=== PATIENT | female | born 1980 | race Hispanic/Latino ===

== ENCOUNTER 2018-06-14 11:12 | Inpatient (IN) | payer SELFPAY ==
[~2018-06-14] VITALS: Ht 165.1 cm; Wt 70.8 kg
[~2018-06-14 11:12] MED LIST: CHOLESTID PO; CYMBALTA30 MG PO; DICYCLOMINE HCL10 MG PO; FLAGYL250 MG PO; KLONOPIN1 MG PO; LEVSIN0.125 MG; MOBIC15 MG PO; PANTOPRAZOLE SO40 MG PO; PRILOSEC40 MG PO; PROMETHAZINE HC25 M1 PO; REGLAN; SINGULAIR10 MG PO; TYLENOL WITH C1 EACH PO; XANAX2 MG; ZOFRAN ODT4 MG PO
[2018-06-14] MEDS ORDERED: SODIUM CHLORIDE 0.9% 1000ML 1,000 ML IV STA ×2 (11:23→15:20)
[2018-06-14] MEDS ORDERED: METOCLOPRAMIDE HCL 10 MG/2ML VIAL IV ONE ×2 (11:30→18:00)
[2018-06-14] MEDS ORDERED: ASPIRIN 81 MG CHEW TAB PO ONE (11:30)
[2018-06-14 11:40] LABS: BILIRUBIN,URINE NEGATIVE (NEGATIVE); CLARITY,URINE SL CLOUDY (CLEAR); COLOR,URINE YELLOW (YELLOW); KETONES,URINE 3+ (NEGATIVE); LEUKOCYTE ESTERASE ,URINE NEGATIVE (NEGATIVE); NITRITE,URINE NEGATIVE (NEGATIVE); PROTEIN,URINE DIPSTICK 1+ (NEGATIVE); URINE UROBILINOGEN 0.2 mg/dL (0.2 - 1)
[2018-06-14] MEDS ORDERED: DIATRIZOATE MEGL/DIATRIZOA SOD 30 ML BTL PO ONE ×2 (11:48→12:05)
[2018-06-14 11:51] LABS: EPITHELIAL CELLS,URINE FEW /LPF; MUCUS,URINE RARE (RARE)
[2018-06-14 13:40] LABS: BASOPHILS # (AUTO) 0.1 (0.0-0.1); BASOPHILS % 0.3 % (0.0-1.0); EOSINOPHILS % 0.1 % (0.0-6.0); HEMATOCRIT 39.1 % (34.2-44.1); HEMOGLOBIN 12.6 g/dL (12.0-16.0); LYMPHOCYTES # (AUTO) 1.2 (1.0-3.2); LYMPHOCYTES % 7.7 % (18.0-39.1); MEAN CORPUSCULAR HEMOGLOBIN 23.7 pg (28-32); MEAN CORPUSCULAR HGB CONC 32.2 g/dL (31-35); MEAN CORPUSCULAR VOLUME 73.6 fL (81-99); MONOCYTES # (AUTO) 0.8 (0.2-0.8); MONOCYTES % 5.2 % (4.4-11.3); NEUTROPHILS % 86.4 % (38.7-80.0); PLATELET COUNT 574 x10e3/uL (140-360); RED BLOOD COUNT 5.31 x10e6/uL (3.6-5.1); RED CELL DISTRIBUTION WIDTH 20.2 % (11.7-14.4)
[2018-06-14 13:58] LABS: ALANINE AMINOTRANSFERASE 37 IU/L (0-55); ALBUMIN 4.3 g/dL (3.5-5.0); ALBUMIN/GLOBULIN RATIO 0.9 (0.8-2.0); ALKALINE PHOSPHATASE 120 IU/L (40-150); AMYLASE 58 U/L (25-125); ANION GAP 22.9 mmol/L (8-16); BLOOD UREA NITROGEN 16 mg/dL (7-26); BUN/CREATININE RATIO 20 (6-25); CALCIUM 11.1 mg/dL (8.4-10.2); CARBON DIOXIDE 20 mmol/L (22-29); CHLORIDE 105 mmol/L (98-107); CREATINE KINASE 59 IU/L (29-168); CREATININE, SERUM 0.81 mg/dL (0.57-1.11); EST GLOMERULAR FILTRATION RATE > 60 ML/MIN (60-); GLUCOSE 130 mg/dL (74-118); LIPASE 6 U/L (8-78); POTASSIUM 3.9 mmol/L (3.5-5.1); SODIUM 144 mmol/L (136-145)
[2018-06-14] MEDS: PIPER-TAZ 3.375 GM 50 ML IV SCH ×2 (14:54→21:49)
[2018-06-14] MEDS ORDERED: MORPHINE SULFATE INJ 4 MG/ML INJ IV STA (14:55)
[2018-06-14] MEDS ORDERED: ONDANSETRON HCL INJ 2 MG/ML VIAL IV STA (15:00)
[2018-06-14] MEDS ORDERED: HYDROMORPHONE 1MG/1ML INJ IV STA (15:00)
--- NOTE | 2018-06-14 16:17 | Diagnostic Imaging Report ---
PROCEDURE: CT ABDOMEN AND PELVIS WITH CONTRAST TECHNIQUE: The abdomen and pelvis were scanned utilizing a multidetector helical scanner from the diaphragm to the lesser trochanter after the IV administration of 100 cc of Isovue 370 and the oral administration of dilute Gastrografin. Coronal and sagittal multiplanar reformations were obtained. COMPARISON: [facility], CT, CT ABDOMEN/PELVIS W, 04/19/2016, 23:54. INDICATIONS: BLACK STOOL VOMITING FINDINGS: LOWER THORAX: Unremarkable. HEPATOBILIARY: No focal hepatic lesions. No intrahepatic biliary ductal dilatation. Mild dilation of the common bile duct enlargement which measures 7 mm At the jerry hepatis. No radiopaque intraluminal filling defects. Cholecystectomy clips. SPLEEN: No splenomegaly. PANCREAS: No focal masses or ductal dilatation. ADRENALS: No adrenal nodules. KIDNEYS/URETERS: No hydronephrosis, stones, or solid mass lesions. PELVIC ORGANS/BLADDER: Bladder and uterus are unremarkable. No adnexal masses. PERITONEUM / RETROPERITONEUM: No free air or fluid. LYMPH NODES: No lymphadenopathy. VESSELS: Celiac trunk, superior and inferior mesenteric, and bilateral renal arteries are patent. Portal, superior mesenteric, and splenic veins are patent. GI TRACT: No bowel dilation or evidence of obstruction. No pericolonic inflammatory changes. No intraluminal masses are noted. Stomach is unremarkable. BONES AND SOFT TISSUES: No aggressive lytic lesions. Soft tissues are unremarkable.. IMPRESSION: 1. No acute abdominopelvic abnormalities. No bowel dilation or evidence of obstruction. No focal intraluminal lesions or wall thickening. David Patton M.D. Dictated by: David Patton M.D. on 06/14/2018 at 16:21 Electronically approved by: David Patton M.D. on 06/14/2018 at 16:21
--- NOTE | 2018-06-14 18:09 | Diagnostic Imaging Report ---
PROCEDURE: Frontal and lateral views of the chest. COMPARISON: None. INDICATIONS: PRE-ADMISSION CHEST X-RAY, ELEVATED WHITE BLOOD CELL COUNT FINDINGS: Lines/tubes: None. Lungs: The lungs are well inflated and clear. There is no evidence of pneumonia or pulmonary edema. Pleura: There is no pleural effusion or pneumothorax. Heart and mediastinum: The heart and the mediastinum are normal. Bones: No acute bony abnormality. IMPRESSION: 1. No acute cardiopulmonary abnormalities. David Patton M.D. Dictated by: David Patton M.D. on 06/14/2018 at 18:15 Electronically approved by: David Patton M.D. on 06/14/2018 at 18:15
[2018-06-14] MEDS: SODIUM CHLORIDE 0.9% 1000ML 1,000 ML IV SCH (19:16)
[2018-06-14] MEDS: PANTOPRAZOLE 40 MG 10ML VIAL IV SCH (19:16)
[2018-06-14 19:39] VITALS: BP 121/68
[2018-06-14 20:00] VITALS: BP 121/73
[2018-06-14] MEDS: HYDROMORPHONE 1MG/1ML INJ IV PRN (20:05)
[2018-06-14] MEDS ORDERED: ACETAMINOPHEN 325 MG TAB PO PRN (20:15)
[2018-06-14] MEDS ORDERED: HYDRALAZINE HCL 20 MG/ML VIAL IV PRN (20:15)
[2018-06-14] MEDS ORDERED: CITALOPRAM HBR20 MG PO (23:24)
[2018-06-14] MEDS ORDERED: SEROQUEL25 MG PO (23:24)
[2018-06-15] VITALS: BP 100/56
[2018-06-15] MEDS ORDERED: IOPAMIDOL 370 MG/ML 200 ML INFUS..BTL INJ ONE (00:39)
[2018-06-15] MEDS ORDERED: SODIUM CHLORIDE 0.9% 50ML 50 ML ONE (00:39)
[2018-06-15] MEDS: SODIUM CHLORIDE 0.9% 1000ML 1,000 ML IV SCH ×2 (02:40→12:31)
[2018-06-15] MEDS: ONDANSETRON HCL INJ 2 MG/ML VIAL IV PRN ×3 (02:57→17:04)
[2018-06-15] MEDS: HYDROMORPHONE 1MG/1ML INJ IV PRN ×4 (02:58→22:00)
[2018-06-15 04:00] VITALS: BP 106/58
[2018-06-15] MEDS: PIPER-TAZ 3.375 GM 50 ML IV SCH ×3 (05:33→21:22)
[2018-06-15 05:39] LABS: BASOPHILS % 0.3 % (0.0-1.0); EOSINOPHILS # (AUTO) 0.1 (0.0-0.4); EOSINOPHILS % 1.2 % (0.0-6.0); LYMPHOCYTES # (AUTO) 2.2 (1.0-3.2); LYMPHOCYTES % 23.5 % (18.0-39.1); MEAN CORPUSCULAR HEMOGLOBIN 23.6 pg (28-32); MEAN CORPUSCULAR VOLUME 76.1 fL (81-99); MONOCYTES % 11.4 % (4.4-11.3); NEUTROPHILS # (AUTO) 5.8 (2.1-6.9); NEUTROPHILS % 63.4 % (38.7-80.0); PLATELET COUNT 437 x10e3/uL (140-360); RED BLOOD COUNT 3.81 x10e6/uL (3.6-5.1); RED CELL DISTRIBUTION WIDTH 19.4 % (11.7-14.4)
[2018-06-15 06:00] LABS: B-TYPE NATRIURETIC PEPTIDE2 101.8 pg/mL (0-100)
[2018-06-15 06:14] LABS: ALANINE AMINOTRANSFERASE 22 IU/L (0-55); ALBUMIN 2.8 g/dL (3.5-5.0); ALKALINE PHOSPHATASE 77 IU/L (40-150); ANION GAP 12.7 mmol/L (8-16); BILIRUBIN,DIRECT 0.2 mg/dL (0.0-0.5); BLOOD UREA NITROGEN 7 mg/dL (7-26); BUN/CREATININE RATIO 11 (6-25); CALCIUM 8.6 mg/dL (8.4-10.2); CARBON DIOXIDE 22 mmol/L (22-29); CHLORIDE 107 mmol/L (98-107); CHOL/HDL RATIO 2.9 (3.0-3.6); CHOLESTEROL 244 MD/DL (0-199); CREATININE, SERUM 0.63 mg/dL (0.57-1.11); EST GLOMERULAR FILTRATION RATE > 60 ML/MIN (60-); GLUCOSE 99 mg/dL (74-118); HDL CHOLESTEROL 84 MG/DL (40-60); LDL CHOLESTEROL 148 MG/DL (60-130); MAGNESIUM 1.5 MG/DL (1.3-2.1); POTASSIUM 3.7 mmol/L (3.5-5.1); SODIUM 138 mmol/L (136-145); TRIGLYCERIDES 62 MG/DL (0-149)
[2018-06-15 06:18] LABS: THYROID STIMULATING HORMONE 0.587 uIU/mL (0.350-4.940)
[2018-06-15] MEDS: PANTOPRAZOLE 40 MG 10ML VIAL IV SCH (07:59)
[2018-06-15 08:00] VITALS: BP 112/63
[2018-06-15 12:13] VITALS: BP 116/69
[2018-06-15 15:57] VITALS: BP 112/59
[2018-06-15] MEDS: CLONAZEPAM 1 MG TAB PO SCH (16:39)
[2018-06-15 20:00] VITALS: BP 126/75
[2018-06-15] MEDS: ATORVASTATIN 20 MG TAB PO SCH (21:00)
[2018-06-15] MEDS: QUETIAPINE FUMARATE 100 MG TAB PO SCH (23:13)
[2018-06-16] VITALS: BP 111/64
[2018-06-16] MEDS ORDERED: PANTOPRAZOLE 40 MG 10ML VIAL IV STA (01:53)
[2018-06-16] MEDS ORDERED: PANTOPRAZOLE 40 MG 10ML VIAL IV SCH (02:00)
[2018-06-16] MEDS: HYDROMORPHONE 1MG/1ML INJ IV PRN ×4 (02:26→23:59)
[2018-06-16 03:11] LABS: BASOPHILS % 0.7 % (0.0-1.0); EOSINOPHILS # (AUTO) 0.1 (0.0-0.4); EOSINOPHILS % 2.1 % (0.0-6.0); HEMATOCRIT 28.8 % (34.2-44.1); HEMOGLOBIN 9.1 g/dL (12.0-16.0); LYMPHOCYTES # (AUTO) 2.4 (1.0-3.2); LYMPHOCYTES % 42.2 % (18.0-39.1); MEAN CORPUSCULAR HEMOGLOBIN 23.6 pg (28-32); MEAN CORPUSCULAR HGB CONC 31.6 g/dL (31-35); MEAN CORPUSCULAR VOLUME 74.6 fL (81-99); MONOCYTES # (AUTO) 0.6 (0.2-0.8); MONOCYTES % 10.1 % (4.4-11.3); NEUTROPHILS # (AUTO) 2.5 (2.1-6.9); NEUTROPHILS % 44.7 % (38.7-80.0); PLATELET COUNT 420 x10e3/uL (140-360); RED BLOOD COUNT 3.86 x10e6/uL (3.6-5.1); RED CELL DISTRIBUTION WIDTH 19.4 % (11.7-14.4)
[2018-06-16 03:28] LABS: ANION GAP 11.3 mmol/L (8-16); BLOOD UREA NITROGEN < 5 mg/dL (7-26); BUN/CREATININE RATIO 8 (6-25); CALCIUM 8.8 mg/dL (8.4-10.2); CARBON DIOXIDE 24 mmol/L (22-29); CHLORIDE 108 mmol/L (98-107); CREATININE, SERUM 0.66 mg/dL (0.57-1.11); EST GLOMERULAR FILTRATION RATE > 60 ML/MIN (60-); GLUCOSE 93 mg/dL (74-118); MAGNESIUM 1.7 MG/DL (1.3-2.1); POTASSIUM 3.3 mmol/L (3.5-5.1); SODIUM 140 mmol/L (136-145)
[2018-06-16 03:51] LABS: FERRITIN 7.41 ng/mL (4.63-204.00)
[2018-06-16 04:00] VITALS: BP 108/67
[2018-06-16 04:04] LABS: FOLATE 16.1 ng/mL (7.0-15.4)
[2018-06-16] MEDS ORDERED: CITRATE OF MAGNESIA 300ML BOTTLE PO ONE ×2 (05:00→06:00)
[2018-06-16] MEDS: PIPER-TAZ 3.375 GM 50 ML IV SCH ×3 (05:28→20:18)
[2018-06-16] MEDS: SODIUM CHLORIDE 0.9% 1000ML 1,000 ML IV SCH ×3 (05:32→19:24)
[2018-06-16] MEDS: CITALOPRAM HYDROBROMIDE 20 MG TAB PO SCH (07:52)
[2018-06-16] MEDS: PANTOPRAZOLE 40 MG 10ML VIAL IV SCH ×2 (07:52→20:18)
[2018-06-16] MEDS: DULOXETINE HCL 30 MG DELAYED RELEASE PO SCH (07:53)
[2018-06-16 08:04] VITALS: BP 115/63
[2018-06-16] MEDS: CLONAZEPAM 1 MG TAB PO SCH ×2 (09:00→19:24)
[2018-06-16] MEDS ORDERED: FERROUS SULFAT325 M1 PO (11:04)
[2018-06-16] MEDS ORDERED: ASCORBIC ACID500 MG PO (11:04)
[2018-06-16] MEDS ORDERED: CEFTIN PO (11:04)
[2018-06-16] MEDS ORDERED: REGLAN10 MG PO (11:19)
[2018-06-16] MEDS ORDERED: METOCLOPRAMIDE HCL 10 MG TAB PO SCH (11:30)
[2018-06-16] MEDS ORDERED: LIPITOR20 MG PO (11:39)
[2018-06-16] MEDS: METOCLOPRAMIDE HCL 10 MG/2ML VIAL IV SCH ×3 (11:48→20:18)
[2018-06-16] MEDS ORDERED: POTASSIUM CHLORIDE 20 MEQ TAB CR PO ONE (12:00)
[2018-06-16] MEDS ORDERED: POTASSIUM CHLORIDE 20MEQ/100ML 100 ML IV ONE ×2 (12:00→17:00)
[2018-06-16 12:31] VITALS: BP 123/79
[2018-06-16 15:49] VITALS: BP 126/80
[2018-06-16] MEDS ORDERED: PROPOFOL IV EMULSION 10 MG/ML 50 ML VIAL ONE (17:50)
[2018-06-16] MEDS ORDERED: HYOSCYAMINE SULFATE 0.5 MG/ML AMP ONE (17:50)
[2018-06-16] MEDS ORDERED: MIDAZOLAM HCL 2 MG/2 ML VIAL ONE (17:55)
[2018-06-16] MEDS ORDERED: FENTANYL CITRATE/PF 100MCG/2 ML INJ ONE (17:55)
[2018-06-16] MEDS: ASCORBIC ACID 500 MG TAB PO SCH (19:24)
[2018-06-16] MEDS: FERROUS SULFATE 325 MG TAB PO SCH (19:24)
[2018-06-16 20:00] VITALS: BP 126/75
[2018-06-16] MEDS: ATORVASTATIN 20 MG TAB PO SCH ×2 (20:18→20:27)
[2018-06-16] MEDS: QUETIAPINE FUMARATE 100 MG TAB PO SCH (20:18)
[2018-06-16] MEDS: ONDANSETRON HCL INJ 2 MG/ML VIAL IV PRN (23:59)
--- NOTE | 2018-06-17 02:07 | Operative Report ---
DATE OF PROCEDURE: June 16, 2018 REFERRING PHYSICIAN: Dr. Matt Pratt. PROCEDURE PERFORMED: Colonoscopy and polypectomy note. INDICATIONS FOR COLONOSCOPY: Rectal bleeding, loose stools. MEDICATION: Patient was done under MAC. Please see anesthesiologist's note. PROCEDURE: With patient in the left lateral decubitus position, the flexible fiberoptic Olympus colonoscope was inserted into the rectum with ease and advanced all the way to the cecum. The mucosa overlying the cecum appeared to be within normal limits. The ileocecal valve was intubated and the scope was advanced into the terminal ileum. Biopsies were obtained. The scope was then withdrawn back into the colon. It was then withdrawn slowly. Mucosa overlying the ascending, transverse, and the descending grossly appeared to be within normal limits. A large pedunculated polyp was removed per snare electrocautery from the sigmoid colon. The rectum grossly appeared to be within normal limits. The scope was then retroflexed into the distal rectum and the area around the dentate line appeared to be within normal limits. The scope was then straightened out. It was subsequently withdrawn. Patient tolerated the procedure well. IMPRESSION: Large pedunculated polyp, sigmoid colon, removed per snare electrocautery. PLAN 1. Follow up histology. 2. Follow up stool studies. 3. Initiate GI soft diet. 4. Timing of followup colonoscopy pending pathology report. Job#: [id number] CF cc:MATT PRATT MD
--- NOTE | 2018-06-17 03:05 | Discharge Summary ---
ADMISSION DIAGNOSES 1. Abdominal pain with nausea and vomiting. 2. Gastrointestinal bleed. 3. Anxiety, depression. 4. Gastroparesis. 5. Gastroesophageal reflux disease. 6. Hypercholesterolemia. DISCHARGE DIAGNOSES 1. Abdominal pain with nausea and vomiting. 2. Gastrointestinal bleed. 3. Anxiety, depression. 4. Gastroparesis. 5. Gastroesophageal reflux disease. 6. Hypercholesterolemia. HISTORY: Patient has a history of gastroparesis, IBS, GERD, anxiety, depression, surgical history of tonsillectomy, cholecystectomy, and a D and C. HOSPITAL COURSE: A 37-year-old female, who complains of nausea, vomiting, and bloody diarrhea that began yesterday. The diarrhea has now resolved. She denies fever and claimed that she had similar episodes in the past, when she was diagnosed with IBS and gastroparesis. Patient was started on Zosyn. CT of the abdomen was done in the ER that showed no acute abdominopelvic abnormality. Chest x-ray was done, which was negative. Urine culture was negative. Blood culture negative. Vital signs stable. Patient afebrile. Per GI, patient will have a colonoscopy today and then, can discharge home afterwards. She will followup outpatient for a gastric emptying study. Patient understands discharge instructions and followup and agrees with plan. Vital signs stable. Patient afebrile. Patient is excited and ready to go home. Dictated By: Lainey Moreland NP MATT ARIAS MD Job#: [id number] CQ
[2018-06-17 04:00] VITALS: BP 126/72
[2018-06-17] MEDS: SODIUM CHLORIDE 0.9% 1000ML 1,000 ML IV SCH (04:56)
[2018-06-17] MEDS: PIPER-TAZ 3.375 GM 50 ML IV SCH (05:02)
[2018-06-17] MEDS: HYDROMORPHONE 1MG/1ML INJ IV PRN (05:02)
[2018-06-17] MEDS: ONDANSETRON HCL INJ 2 MG/ML VIAL IV PRN (05:02)
[2018-06-17 05:26] LABS: BASOPHILS % 0.6 % (0.0-1.0); EOSINOPHILS # (AUTO) 0.2 (0.0-0.4); EOSINOPHILS % 3.4 % (0.0-6.0); HEMATOCRIT 29.6 % (34.2-44.1); HEMOGLOBIN 9.2 g/dL (12.0-16.0); LYMPHOCYTES # (AUTO) 2.5 (1.0-3.2); LYMPHOCYTES % 38.3 % (18.0-39.1); MEAN CORPUSCULAR HEMOGLOBIN 23.7 pg (28-32); MEAN CORPUSCULAR HGB CONC 31.1 g/dL (31-35); MEAN CORPUSCULAR VOLUME 76.3 fL (81-99); MONOCYTES # (AUTO) 0.7 (0.2-0.8); MONOCYTES % 10.1 % (4.4-11.3); NEUTROPHILS # (AUTO) 3.1 (2.1-6.9); NEUTROPHILS % 47.3 % (38.7-80.0); PLATELET COUNT 405 x10e3/uL (140-360); RED BLOOD COUNT 3.88 x10e6/uL (3.6-5.1); RED CELL DISTRIBUTION WIDTH 19.6 % (11.7-14.4)
[2018-06-17 05:57] LABS: ANION GAP 12.6 mmol/L (8-16); BLOOD UREA NITROGEN 6 mg/dL (7-26); BUN/CREATININE RATIO 9 (6-25); CALCIUM 8.6 mg/dL (8.4-10.2); CARBON DIOXIDE 22 mmol/L (22-29); CHLORIDE 110 mmol/L (98-107); CREATININE, SERUM 0.67 mg/dL (0.57-1.11); EST GLOMERULAR FILTRATION RATE > 60 ML/MIN (60-); GLUCOSE 101 mg/dL (74-118); MAGNESIUM 1.6 MG/DL (1.3-2.1); POTASSIUM 3.6 mmol/L (3.5-5.1); SODIUM 141 mmol/L (136-145)
[2018-06-17] MEDS: METOCLOPRAMIDE HCL 10 MG/2ML VIAL IV SCH (07:30)
[2018-06-17] MEDS ORDERED: TYLENOL # 31 EA PO (07:34)
[2018-06-17] MEDS: FERROUS SULFATE 325 MG TAB PO SCH (08:00)
[2018-06-17 08:11] VITALS: BP 127/76
[2018-06-17] MEDS: PANTOPRAZOLE 40 MG 10ML VIAL IV SCH (09:00)
[2018-06-17] MEDS: ASCORBIC ACID 500 MG TAB PO SCH (09:00)
[2018-06-17] MEDS: CLONAZEPAM 1 MG TAB PO SCH (09:00)
[2018-06-17] MEDS: DULOXETINE HCL 30 MG DELAYED RELEASE PO SCH (09:00)
[2018-06-17] MEDS: CITALOPRAM HYDROBROMIDE 20 MG TAB PO SCH (09:00)
--- NOTE | 2018-06-17 20:43 | Discharge Summary ---
ADMISSION DIAGNOSES 1. Abdominal pain with nausea and vomiting. 2. Gastrointestinal bleed. 3. Anxiety. 4. Depression. 5. Gastroparesis. 6. Gastroesophageal reflux disease. 7. Hypercholesterolemia. 8. Large colon polyp. DISCHARGE DIAGNOSES 1. Abdominal pain with nausea and vomiting. 2. Gastrointestinal bleed. 3. Anxiety. 4. Depression. 5. Gastroparesis. 6. Gastroesophageal reflux disease. 7. Hypercholesterolemia. 8. Large colon polyp. HISTORY: Patient has a history of gastroparesis, IBS, GERD, anxiety, depression. Surgical history of tonsillectomy, cholecystectomy, and D and C. HOSPITAL COURSE: A 37-year-old female complains of nausea, vomiting, and bloody diarrhea that began yesterday. The diarrhea has now resolved. She denies fever and claimed that she had similar episodes in the past, when she was diagnosed with IBS and gastroparesis. Patient was started on Zosyn. CT of the abdomen done in the ER showed no acute abdominopelvic abnormality. Chest x-ray was negative. Urine culture negative. Blood culture negative. Patient had an EGD that showed a large pedunculated polyp, which was removed per snare electrocautery. Stool culture was collected and is still pending. Per GI, patient can have an outpatient gastric emptying study. Patient understands discharge instructions and followup plans and agrees with plan. Vital signs stable. Patient afebrile. Patient was discharged home today and follow up with GI regarding stool studies and gastric emptying study. Dictated By: Lainey Moreland NP MATT ARIAS MD Job#: [id number] CQ
== END 2018-06-17 11:12 | disposition home or self-care (01) | DRG 379 ==
LOC: ER 11:12 → ERHOLD 16:59 → MED/SURG2 18:55
PROVIDERS: ADMIT Internal Medicine; ATTEND Internal Medicine
PROC: 0DBB8ZX Excision of Ileum, Via Natural or Artificial Opening Endoscopic, Diagnostic (ICD-10-PCS; 2018-06-16)
PROC: 0DBN8ZZ Excision of Sigmoid Colon, Via Natural or Artificial Opening Endoscopic (ICD-10-PCS; principal; 2018-06-16 17:11)
DX: K92.1 Melena (principal); K63.5 Polyp of colon; K58.9 Irritable bowel syndrome, unspecified; F41.8 Other specified anxiety disorders; K31.84 Gastroparesis; D64.9 Anemia, unspecified; K21.9 Gastro-esophageal reflux disease without esophagitis
CPT/HCPCS: 36415; 45385; 71046; 74177; 80048; 80053; 80061; 80076; 81001; 81025; 82150; 82550; 82553; 82607; 82728; 82746; 83036; 83540; 83605; 83690; 83735; 83880; 84439; 84443; 84466; 84484; 85025; 87040; 87045; 87086; 87177; 87328; 88305; 99284; J1170; J1980; J2250; J2405; J2543; J2765; J3480; J7030; Q9967

== ENCOUNTER 2018-06-20 15:28 | Observation (INO) | payer SELFPAY ==
[~2018-06-20] VITALS: Ht 165.1 cm; Wt 64.9 kg
[~2018-06-20 15:28] MED LIST changes: +ASCORBIC ACID500 MG PO; +CEFTIN PO; +CITALOPRAM HBR20 MG PO; +FERROUS SULFAT325 M1 PO; +LIPITOR20 MG PO; +REGLAN10 MG PO; +SEROQUEL25 MG PO; +TYLENOL # 31 EA PO
[2018-06-20] MEDS ORDERED: SODIUM CHLORIDE 0.9% 1000ML 1,000 ML IV ONE (15:45)
[2018-06-20 15:59] LABS: BASOPHILS % 0.2 % (0.0-1.0); EOSINOPHILS # (AUTO) 0.1 (0.0-0.4); EOSINOPHILS % 0.8 % (0.0-6.0); HEMATOCRIT 34.7 % (34.2-44.1); LYMPHOCYTES # (AUTO) 1.1 (1.0-3.2); MEAN CORPUSCULAR HEMOGLOBIN 23.8 pg (28-32); MEAN CORPUSCULAR HGB CONC 31.7 g/dL (31-35); MEAN CORPUSCULAR VOLUME 75.1 fL (81-99); MONOCYTES # (AUTO) 0.3 (0.2-0.8); MONOCYTES % 2.8 % (4.4-11.3); NEUTROPHILS # (AUTO) 10.7 (2.1-6.9); NEUTROPHILS % 86.9 % (38.7-80.0); PLATELET COUNT 474 x10e3/uL (140-360); RED BLOOD COUNT 4.62 x10e6/uL (3.6-5.1)
[2018-06-20 16:02] LABS: BILIRUBIN,URINE NEGATIVE (NEGATIVE); CLARITY,URINE CLEAR (CLEAR); COLOR,URINE YELLOW (YELLOW); KETONES,URINE NEGATIVE (NEGATIVE); LEUKOCYTE ESTERASE ,URINE NEGATIVE (NEGATIVE); NITRITE,URINE NEGATIVE (NEGATIVE); PROTEIN,URINE DIPSTICK NEGATIVE (NEGATIVE); URINE UROBILINOGEN 0.2 mg/dL (0.2 - 1)
[2018-06-20 16:11] LABS: BACTERIA,URINE FEW /HPF; EPITHELIAL CELLS,URINE MANY /LPF; MUCUS,URINE MODERATE (RARE)
[2018-06-20 16:17] LABS: ALANINE AMINOTRANSFERASE 25 IU/L (0-55); ALBUMIN 3.5 g/dL (3.5-5.0); ALBUMIN/GLOBULIN RATIO 0.9 (0.8-2.0); ALKALINE PHOSPHATASE 93 IU/L (40-150); ANION GAP 13.6 mmol/L (8-16); BLOOD UREA NITROGEN 9 mg/dL (7-26); BUN/CREATININE RATIO 13 (6-25); CALCIUM 9.4 mg/dL (8.4-10.2); CARBON DIOXIDE 24 mmol/L (22-29); CHLORIDE 108 mmol/L (98-107); CREATININE, SERUM 0.71 mg/dL (0.57-1.11); EST GLOMERULAR FILTRATION RATE > 60 ML/MIN (60-); GLUCOSE 113 mg/dL (74-118); POTASSIUM 3.6 mmol/L (3.5-5.1); SODIUM 142 mmol/L (136-145)
[2018-06-20] MEDS ORDERED: ONDANSETRON HCL INJ 2 MG/ML VIAL IV STA (16:26)
[2018-06-20] MEDS ORDERED: HYOSCYAMINE SULFATE 0.5 MG/ML AMP IV ONE (19:15)
[2018-06-20] MEDS ORDERED: PROMETHAZINE 12.5MG/ NACL 0.9% 12.5 MG/50 ML BAG IV ONE (19:15)
[2018-06-20] MEDS ORDERED: SODIUM CHLORIDE 0.9% 1000ML 1,000 ML IV SCH (19:30)
[2018-06-20] MEDS ORDERED: DICYCLOMINE HCL 20 MG/2 ML VIAL IM ONE (21:45)
[2018-06-20] MEDS: METOCLOPRAMIDE HCL 10 MG/2ML VIAL IV SCH (22:00)
--- NOTE | 2018-06-20 22:01 | Diagnostic Imaging Report ---
EXAM: ABDOMEN ACUTE SERIES W/PA CXR INDICATION: Vomiting COMPARISON: None available FINDINGS: LINES/TUBES: None LUNGS: No consolidations or edema. PLEURA: No effusions or pneumothorax. HEART AND MEDIASTINUM: Normal size and contour. BOWEL PATTERN: Non-obstructed bowel gas pattern. BONES AND SOFT TISSUES: No acute bone findings. No abnormal calcifications. Right upper quadrant cholecystectomy clips. IMPRESSION: No acute thoracic abnormality. No evidence for bowel obstruction. Signed by: Dr. Ninfa Sparks M.D. on 06/20/2018 9:57 PM
[2018-06-20] MEDS ORDERED: METOPROLOL TARTRATE INJ 1 MG/ML VIAL IV ONE (22:15)
[2018-06-20] MEDS ORDERED: ONDANSETRON HCL INJ 2 MG/ML VIAL IV PRN (22:30)
[2018-06-20] MEDS: SODIUM CHLORIDE 0.9% 1000ML 1,000 ML IV SCH (22:37)
[2018-06-20 23:45] VITALS: BP 174/100
[2018-06-21] VITALS (8 sets, daily range): BP systolic 99–144; BP diastolic 57–92
[2018-06-21] MEDS ORDERED: DIAZEPAM5 MG PO (00:05)
[2018-06-21] MEDS ORDERED: PANTOPRAZOLE 40 MG 10ML VIAL IV STA (00:19)
[2018-06-21] MEDS: PANTOPRAZOL 40MG/SOD CHL 0.9% 50 ML IV SCH ×5 (01:03→21:36)
[2018-06-21] MEDS: SODIUM CHLORIDE 0.9% 1000ML 1,000 ML IV SCH ×3 (06:17→22:17)
[2018-06-21] MEDS: METOCLOPRAMIDE HCL 10 MG/2ML VIAL IV SCH ×3 (06:41→18:50)
[2018-06-21] MEDS ORDERED: ACETAMINOPHEN 325 MG TAB PO PRN (09:30)
[2018-06-21] MEDS ORDERED: HYDRALAZINE HCL 20 MG/ML VIAL IV PRN (09:30)
[2018-06-21] MEDS: CLONAZEPAM 1 MG TAB PO SCH (16:56)
[2018-06-21] MEDS ORDERED: ATORVASTATIN 20 MG TAB PO SCH (21:00)
[2018-06-21] MEDS ORDERED: QUETIAPINE FUMARATE 100 MG TAB PO SCH (21:00)
[2018-06-21] MEDS ORDERED: QUETIAPINE FUMARATE 25 MG TAB PO SCH (21:00)
[2018-06-22 00:30] VITALS: BP 107/56
[2018-06-22] MEDS: METOCLOPRAMIDE HCL 10 MG/2ML VIAL IV SCH ×2 (01:12→06:38)
[2018-06-22] MEDS: PANTOPRAZOL 40MG/SOD CHL 0.9% 50 ML IV SCH ×2 (04:21→09:25)
[2018-06-22 05:00] VITALS: BP 95/54
[2018-06-22 05:58] LABS: BASOPHILS % 0.5 % (0.0-1.0); EOSINOPHILS # (AUTO) 0.2 (0.0-0.4); EOSINOPHILS % 3.2 % (0.0-6.0); HEMATOCRIT 29.4 % (34.2-44.1); HEMOGLOBIN 9.4 g/dL (12.0-16.0); LYMPHOCYTES # (AUTO) 3.3 (1.0-3.2); LYMPHOCYTES % 49.3 % (18.0-39.1); MEAN CORPUSCULAR HEMOGLOBIN 23.7 pg (28-32); MEAN CORPUSCULAR VOLUME 74.1 fL (81-99); MONOCYTES # (AUTO) 0.7 (0.2-0.8); NEUTROPHILS # (AUTO) 2.4 (2.1-6.9); NEUTROPHILS % 36.7 % (38.7-80.0); PLATELET COUNT 412 x10e3/uL (140-360); RED BLOOD COUNT 3.97 x10e6/uL (3.6-5.1); RED CELL DISTRIBUTION WIDTH 20.1 % (11.7-14.4)
[2018-06-22 06:36] LABS: ANION GAP 14.1 mmol/L (8-16); BLOOD UREA NITROGEN 8 mg/dL (7-26); BUN/CREATININE RATIO 12 (6-25); CARBON DIOXIDE 23 mmol/L (22-29); CHLORIDE 108 mmol/L (98-107); CREATININE, SERUM 0.69 mg/dL (0.57-1.11); EST GLOMERULAR FILTRATION RATE > 60 ML/MIN (60-); GLUCOSE 96 mg/dL (74-118); MAGNESIUM 1.6 MG/DL (1.3-2.1); POTASSIUM 3.1 mmol/L (3.5-5.1); SODIUM 142 mmol/L (136-145)
[2018-06-22] MEDS: SODIUM CHLORIDE 0.9% 1000ML 1,000 ML IV SCH (06:38)
[2018-06-22 08:23] VITALS: BP 114/62
[2018-06-22] MEDS: MONTELUKAST SODIUM 10 MG TAB PO SCH ×2 (09:00→09:15)
[2018-06-22] MEDS: DULOXETINE HCL 30 MG DELAYED RELEASE PO SCH ×2 (09:00→09:15)
[2018-06-22] MEDS: CLONAZEPAM 1 MG TAB PO SCH (09:15)
[2018-06-22] MEDS ORDERED: CITALOPRAM HBR20 MG PO (09:42)
[2018-06-22] MEDS ORDERED: PROPRANOLOL HCL10 MG PO (09:48)
[2018-06-22 10:00] VITALS: BP 114/62
[2018-06-22] MEDS ORDERED: PANTOPRAZOLE SO40 MG PO (10:04)
[2018-06-22] MEDS ORDERED: ATORVASTATIN CA10 MG PO (10:09)
[2018-06-22] MEDS ORDERED: POTASSIUM CHLORIDE 20 MEQ TAB CR PO NR (10:10)
[2018-06-22 11:42] VITALS: BP 107/59
--- NOTE | 2018-06-22 18:51 | Discharge Summary ---
ADMISSION DIAGNOSES 1. Cannabinoid hyperemesis. 2. Gastroparesis. 3. Anxiety/depression. 4. Hyperlipidemia. 5. Leukocytosis. DISCHARGE DIAGNOSES 1. Cannabinoid hyperemesis. 2. Gastroparesis. 3. Anxiety/depression. 4. Hyperlipidemia. 5. Leukocytosis. 6. Rule out urinary tract infection. HISTORY: The patient has a history of irritable bowel syndrome, GERD, anxiety, depression, hyperlipidemia, gastroparesis. HOSPITAL COURSE: A 37-year-old female discharged on 06/17/18. She was admitted at that point with nausea, vomiting and diarrhea. She had a colonoscopy, which showed a polyp. She was then sent home with Reglan and promethazine. She was tolerating diet at the time of discharge. On 06/19, she smoked weed and denies it being laced with anything, and on that night into the next morning she awoke up out of her sleep complaining of nausea and vomiting. She also complains of diarrhea and sweats. GI was consulted on admission. The patient started on a PPI drip, IV fluids, Reglan and Zofran. The patient continued on home medications for all other medical diagnoses. After getting the PPI drip for 2 days, the patient feels much better. She is tolerating p.o., no longer nauseated and no longer having diarrhea. The patient will discharge home and follow up with GI as needed. She is to have a gastric emptying study. Per her last admission, she was advised to stop smoking weed, and take her meds as prescribed. The patient is afebrile, vital signs stable. She understands discharge instructions and agrees to plan. Dictated by: Lainey Moreland NP MATT ARIAS MD Job#: [id number]
== END 2018-06-22 11:40 | disposition home or self-care (01) ==
LOC: ER 15:28 → ERHOLD 22:17 → IMCU 23:37
PROVIDERS: ADMIT Internal Medicine; ATTEND Internal Medicine
DX: F12.188 Cannabis abuse with other cannabis-induced disorder (principal); E86.0 Dehydration; K58.9 Irritable bowel syndrome, unspecified; K21.9 Gastro-esophageal reflux disease without esophagitis; F41.9 Anxiety disorder, unspecified; E78.5 Hyperlipidemia, unspecified; K31.84 Gastroparesis; F41.8 Other specified anxiety disorders
CPT/HCPCS: 36415 ×2; 74022; 80048; 80053; 81001; 83605; 83690; 83735; 84702; 85025 ×2; 99284; G0378 ×3; J0500; J1980; J2405; J2550; J2765 ×3; J7030 ×2

== ENCOUNTER 2018-11-14 21:10 | Observation (INO) | payer SELFPAY ==
[~2018-11-14] VITALS: Ht 165.1 cm; Wt 85.7 kg
[~2018-11-14 21:10] MED LIST changes: +ATORVASTATIN CA10 MG PO; +DIAZEPAM5 MG PO; +PROPRANOLOL HCL10 MG PO
--- OUTSIDE RECORDS SUMMARY | 2018-11-14 21:13 | XMS REPORT | Clinical Summary ---
Author Author MATHEW [facility] Address Unknown Phone Unavailable Care Team Providers Care Student Union Consultant Name Role Phone PCP Unavailable Allergies Comments Active Allergy Reactions Severity Noted Date Morphine Hives, Rash High 04/21/2016 Medications End Date Status Medication Sig Dispensed Refills Start Date Active colestipol (COLESTID) 5 Take 1 g by 0 gram granules mouth once. Active FLUoxetine (PROZAC) 10 MG Take 30 mg by 0 tablet mouth daily. Active ALPRAZolam (XANAX) 0.5 MG Take 0.5 mg 0 tablet by mouth daily. Active ALPRAZolam (XANAX) 1 MG Take 1 mg by 0 tablet mouth nightly. Active omeprazole (PRILOSEC) 40 Take 40 mg by 0 MG capsule mouth daily. Active montelukast (SINGULAIR) Take 10 mg by 0 10 mg tablet mouth nightly. Active Missing or Non-Formulary 0 Medication Active vitamin Take 1 tablet 0 w/eondpwq-udld-nmiatw by mouth ( PLUS) 27 mg daily. iron- 1 mg Tab Active promethazine (PHENERGAN) Take 25 mg by 0 25 MG tablet mouth every 6 (six) hours as needed for Nausea. Active ondansetron (ZOFRAN) 4 MG Take 4 mg by 0 tablet mouth 2 (two) times daily as needed for Nausea. Active etonogestrel-ethinyl Place 1 each 0 estradiol (NUVARING) vaginally 0.12-0.015 mg/24 hr every 28 days vaginal ring Insert vaginally and leave in place for 3 consecutive weeks, then remove for 1 week. . Active Problems Not on file Social History Date Tobacco Use Types Packs/Day Years Used Current Every Day Smoker Comments: decreased to half a pack / plan of quiting Alcohol Use Drinks/Week oz/Week Comments No Sex Assigned at Date Recorded Not on file Industry Job Start Date Occupation Not on file Not on file Not on file Travel End Travel History Travel Start No recent travel history available. Last Filed Vital Signs Not on file Plan of Treatment Not on file Results Not on fileafter 11/13/2017 Insurance Payer Benefit Subscriber ID Type Phone Address Plan / Group [employer] ADV xxxxxxxxxxxx [phone] [address] [place] [address] EXCHANGE
[2018-11-14] MEDS ORDERED: DICYCLOMINE HCL 20 MG/2 ML VIAL IM ONE (22:15)
[2018-11-14] MEDS ORDERED: SODIUM CHLORIDE 0.9% 1000ML 1,000 ML IV ONE (22:15)
[2018-11-14] MEDS ORDERED: ONDANSETRON HCL INJ 2 MG/ML VIAL IV STA (22:15)
[2018-11-14] MEDS ORDERED: PANTOPRAZOLE 40 MG 10ML VIAL IV STA (22:15)
[2018-11-14 22:40] LABS: BASOPHILS # (AUTO) 0.1 (0.0-0.1); BASOPHILS % 0.4 % (0.0-1.0); EOSINOPHILS % 0.1 % (0.0-6.0); HEMOGLOBIN 11.4 g/dL (12.0-16.0); LYMPHOCYTES # (AUTO) 1.4 (1.0-3.2); LYMPHOCYTES % 10.1 % (18.0-39.1); MEAN CORPUSCULAR HEMOGLOBIN 22.5 pg (28-32); MEAN CORPUSCULAR HGB CONC 31.7 g/dL (31-35); MONOCYTES # (AUTO) 0.7 (0.2-0.8); MONOCYTES % 4.6 % (4.4-11.3); NEUTROPHILS % 84.4 % (38.7-80.0); PLATELET COUNT 560 x10e3/uL (140-360); RED BLOOD COUNT 5.07 x10e6/uL (3.6-5.1); RED CELL DISTRIBUTION WIDTH 19.5 % (11.7-14.4)
[2018-11-14 22:46] LABS: CLARITY,URINE CLEAR (CLEAR); COLOR,URINE YELLOW (YELLOW); KETONES,URINE 3+ (NEGATIVE); LEUKOCYTE ESTERASE ,URINE NEGATIVE (NEGATIVE); NITRITE,URINE NEGATIVE (NEGATIVE); PROTEIN,URINE DIPSTICK 1+ (NEGATIVE)
[2018-11-14 22:47] LABS: AMPHETAMINES SCREEN,URINE NEGATIVE (NEGATIVE); BENZODIAZEPINES SCREEN,URINE POSITIVE (NEGATIVE); PHENCYCLIDINE SCREEN,URINE NEGATIVE (NEGATIVE)
[2018-11-14 22:48] LABS: PREGNANCY TEST, URINE NEGATIVE (NEGATIVE)
[2018-11-14 22:55] LABS: ALANINE AMINOTRANSFERASE 27 IU/L (0-55); ALBUMIN 3.9 g/dL (3.5-5.0); ALBUMIN/GLOBULIN RATIO 0.8 (0.8-2.0); ALKALINE PHOSPHATASE 124 IU/L (40-150); AMYLASE 79 U/L (25-125); ANION GAP 23.6 mmol/L (8-16); BLOOD UREA NITROGEN 12 mg/dL (7-26); BUN/CREATININE RATIO 14 (6-25); CALCIUM 10.1 mg/dL (8.4-10.2); CARBON DIOXIDE 13 mmol/L (22-29); CHLORIDE 104 mmol/L (98-107); CREATININE, SERUM 0.83 mg/dL (0.57-1.11); EST GLOMERULAR FILTRATION RATE > 60 ML/MIN (60-); GLUCOSE 141 mg/dL (74-118); LIPASE 6 U/L (8-78); POTASSIUM 3.6 mmol/L (3.5-5.1); SODIUM 137 mmol/L (136-145)
[2018-11-14 23:04] LABS: BILIRUBIN,URINE NEGATIVE (NEGATIVE); URINE UROBILINOGEN 0.2 mg/dL (0.2 - 1)
[2018-11-14 23:05] LABS: BACTERIA,URINE MODERATE /HPF; EPITHELIAL CELLS,URINE FEW /LPF; MUCUS,URINE MANY (RARE)
--- OUTSIDE RECORDS SUMMARY | 2018-11-14 23:45 | XMS REPORT | Clinical Summary ---
Author Author MATHEW [facility] Address Unknown Phone Unavailable Care Team Providers Care Police Inspector Name Role Phone PCP Unavailable Allergies Comments [...] Medication Active vitamin Take 1 tablet 0 w/hjveiyi-ferb-tuqvjg by mouth ( PLUS) 27 mg daily. [...] Group [employer] ADV xxxxxxxxxxxx [phone] [address] [place] [address] EXCHANGE
[2018-11-15] MEDS: SODIUM CHLORIDE 0.9% 1000ML 1,000 ML IV SCH ×3 (00:15→16:49)
[2018-11-15] MEDS ORDERED: CEFTRIAXONE SOD 1 GM/NS 50 ML 50 ML IV ONE (00:22)
[2018-11-15] MEDS: METOCLOPRAMIDE HCL 10 MG/2ML VIAL IV SCH ×4 (00:22→17:34)
[2018-11-15] MEDS: CEFTRIAXONE SOD 1 GM VIAL IV SCH (00:22)
--- NOTE | 2018-11-15 00:32 | Diagnostic Imaging Report ---
ABDOMEN ACUTE SERIES W/PA CXR Clinical history: Abdominal pain, vomiting, diarrhea Technique: AP view abdomen, supine and upright, PA chest Comparison: 06/20/2018 Findings: Abdomen: No dilated loops of small or large bowel. No free air. Other: Cholecystectomy. 2 to 3 mm calculus projects over the right kidney. Pelvic phleboliths. Chest: Unremarkable heart, mediastinum, lungs, and pleural spaces. Impression: 1. Nonobstructive bowel gas pattern. 2. Right nephrolithiasis. Signed by: Dr Lily Castillo MD on 11/15/2018 12:29 AM
[2018-11-15] MEDS ORDERED: DIPHENHYDRAMINE HCL INJ 50 MG/ML VIAL ONE (01:09)
[2018-11-15] MEDS: ONDANSETRON HCL INJ 2 MG/ML VIAL IV PRN ×5 (01:10→23:53)
[2018-11-15] MEDS ORDERED: DIPHENHYDRAMINE HCL INJ 50 MG/ML VIAL IV PRN (01:15)
[2018-11-15] MEDS ORDERED: PROPRANOLOL HCL 10 MG TAB PO PRN (02:45)
[2018-11-15] MEDS ORDERED: DIAZEPAM 5 MG TAB PO PRN (02:45)
[2018-11-15] MEDS ORDERED: PROMETHAZINE HCL (IM) 25 MG/ML VIAL IM ONE ×2 (04:45)
[2018-11-15 06:32] LABS: ALANINE AMINOTRANSFERASE 26 IU/L (0-55); ALBUMIN 3.4 g/dL (3.5-5.0); ALBUMIN/GLOBULIN RATIO 0.8 (0.8-2.0); ALKALINE PHOSPHATASE 102 IU/L (40-150); ANION GAP 19.6 mmol/L (8-16); BLOOD UREA NITROGEN 7 mg/dL (7-26); BUN/CREATININE RATIO 10 (6-25); CALCIUM 8.8 mg/dL (8.4-10.2); CARBON DIOXIDE 16 mmol/L (22-29); CHLORIDE 106 mmol/L (98-107); CREATININE, SERUM 0.73 mg/dL (0.57-1.11); EST GLOMERULAR FILTRATION RATE > 60 ML/MIN (60-); GLUCOSE 107 mg/dL (74-118); POTASSIUM 3.6 mmol/L (3.5-5.1); SODIUM 138 mmol/L (136-145)
[2018-11-15 06:59] LABS: BASOPHILS % 0.2 % (0.0-1.0); HEMATOCRIT 31.7 % (34.2-44.1); LYMPHOCYTES # (AUTO) 1.5 (1.0-3.2); LYMPHOCYTES % 11.2 % (18.0-39.1); MEAN CORPUSCULAR HEMOGLOBIN 22.9 pg (28-32); MEAN CORPUSCULAR HGB CONC 31.5 g/dL (31-35); MEAN CORPUSCULAR VOLUME 72.5 fL (81-99); MONOCYTES # (AUTO) 0.8 (0.2-0.8); MONOCYTES % 6.3 % (4.4-11.3); NEUTROPHILS # (AUTO) 10.7 (2.1-6.9); NEUTROPHILS % 81.8 % (38.7-80.0); PLATELET COUNT 497 x10e3/uL (140-360); RED BLOOD COUNT 4.37 x10e6/uL (3.6-5.1); RED CELL DISTRIBUTION WIDTH 19.6 % (11.7-14.4)
--- NOTE | 2018-11-15 07:53 | History and Physical ---
The patient is a 38-year-old white woman with a history of abdominal pain, nausea, vomiting, diarrhea, and cramps. The patient is complaining of abdominal pain described as 10/10 in the epigastric and lower suprapubic area. The patient also has periumbilical pain, cramping in intermittent nature, 8/10 in intensity. The patient describes the pain as cramping and associated with vomiting. The patient started with these symptoms this morning when she had coffee. The patient had some symptoms in the past. The patient is seeing Dr. Cosmo Barros for her GI symptoms. PAST MEDICAL HISTORY: History of duodenal stricture, history of chronic abdominal pain, history of chronic marijuana abuse, history of anxiety disorder. FAMILY HISTORY: History of hypertension, history of type 2 diabetes mellitus and history of hyperlipidemia. SOCIAL HISTORY: The patient still smokes marijuana. The last time she had it apparently was about a week ago. SURGICAL HISTORY: History of cholecystectomy in 2009, tonsillectomy and dilatation and curettage. ALLERGIES: MORPHINE. HOME MEDICATIONS 1. Citalopram 20 mg daily. 2. Diazepam 5 mg twice a day. 3. Zofran 4 mg daily. 4. Pantoprazole 40 mg daily. 5. Promethazine 25 mg daily. 6. Propranolol 20 mg twice a day. 7. Seroquel 25 mg at nighttime. REVIEW OF SYSTEMS: Negative for chest pain. Positive for some shortness of breath. Positive for nausea and vomiting. No diarrhea. No constipation or rectal bleeding, hematochezia and no hematemesis. PHYSICAL EXAMINATION GENERAL: The patient is alert and oriented times 3. In no acute distress at this time. Pain is still 5/10 and she says intermittent. VITAL SIGNS: Temperature is 98.2, pulse of 80, respirations of 21, blood pressure is 163/96. HEENT: Normocephalic and atraumatic. There is no icterus present. CV: S1 and S2 normal. Regular rate and rhythm. ABDOMEN: Tender in the periumbilical area, epigastric area and the suprapubic area. Left lower quadrant pain also present. No rebound. No guarding present. EXTREMITIES: No clubbing. No cyanosis. No edema. LABORATORY VALUES: White count is 14,000 initially, hemoglobin of 11.4, hematocrit of 36, and platelet count was 560,000. Neutrophil count 12. Chemistry: Sodium of 137, potassium 3.7, BUN 12, creatinine 0.83 with a GFR of about 60. Urine positive for bacteria. Toxicology positive for opiates. Positive for benzodiazepines and positive for cannabinoids. ASSESSMENT 1. Acute gastroenteritis. 2. History of hypertension. 3. History of anxiety. 4. History of cannabis abuse and currently with cannabis abuse. PLAN: Continue with fluids. Will check her white count tomorrow. It was probably reactive. Will continue monitoring the patient and restart her home medications. The patient is also on Rocephin. Urine culture has been sent. Further recommendations per clinical course. Will continue monitoring the patient. The patient has been advised against marijuana use. For further information, look in the chart. Will check her labs tomorrow and possible discharge tomorrow. Job#: [id number] CHANEL
[2018-11-15] MEDS: CITALOPRAM HYDROBROMIDE 20 MG TAB PO SCH (08:17)
[2018-11-15] MEDS: PANTOPRAZOLE 40 MG 10ML VIAL IV SCH ×2 (08:17→17:34)
[2018-11-15] MEDS ORDERED: PANTOPRAZOLE SOD 40 MG TABEC PO SCH (09:00)
--- NOTE | 2018-11-15 11:11 | NUR ---
REC'D REPORT ON RM 11 FROM HEATHER JANSEN. V.S.S. WILL CONTINUE TO MONITOR
--- NOTE | 2018-11-15 11:11 | NUR ---
The pt is up to the restroom frequently. Family has left for a little while but will return "later". The pt is complaining of pain to the LFA IV site. The saline lock is flushed with 5cc N/S and pain is "tolerable". Explained the IV is still functional and is good to have as a back-up to the 22g in the hand. Pt states the site is irritating but she will keep it. No acute distress is noted. Will monitor. Verbal report given to Olivia Hector RN.
[2018-11-15 16:04] VITALS: BP 116/67
--- NOTE | 2018-11-15 16:16 | NUR ---
Received patient from ER. Initial admission assessment complete. Patient on NS @ 125 ml/hr in right wrist. A/O X 3, clear breath sounds, pulses strong, vitals stable. Bed in lowest position, call light in reach, bed wheels locked. Patient educated to use call light for assistance. No signs of distress at this time.
[2018-11-15 16:30] VITALS: BP 116/67
[2018-11-15 16:31] VITALS: BP 116/67
--- NOTE | 2018-11-15 18:52 | NUR ---
Report given to oncoming nurse. Bed in lowest position, wheels locked, call light in reach. No signs of distress noted.
--- NOTE | 2018-11-15 19:25 | NUR ---
Report received and walking rounds complete. Pt resting in bed and in no apparent distress. Pt mother at bedside. All safety measures ensured, bed alarm on, and pt call coello near. Pt encouraged to use call coello for assistance.
[2018-11-15 20:00] VITALS: BP 116/67
[2018-11-15 20:03] VITALS: BP 171/95
[2018-11-15] MEDS: QUETIAPINE FUMARATE 100 MG TAB PO SCH (21:53)
[2018-11-16] VITALS (7 sets, daily range): BP systolic 93–119; BP diastolic 51–67
[2018-11-16] MEDS: CEFTRIAXONE SOD 1 GM VIAL IV SCH (00:41)
[2018-11-16] MEDS: METOCLOPRAMIDE HCL 10 MG/2ML VIAL IV SCH ×4 (00:41→17:42)
[2018-11-16] MEDS ORDERED: PANTOPRAZOLE 40 MG 10ML VIAL IV STA (01:22)
[2018-11-16] MEDS: ONDANSETRON HCL INJ 2 MG/ML VIAL IV PRN ×3 (04:03→16:15)
[2018-11-16 05:17] LABS: BASOPHILS % 0.3 % (0.0-1.0); EOSINOPHILS % 0.1 % (0.0-6.0); HEMATOCRIT 27.1 % (34.2-44.1); HEMOGLOBIN 8.6 g/dL (12.0-16.0); LYMPHOCYTES # (AUTO) 2.4 (1.0-3.2); LYMPHOCYTES % 27.5 % (18.0-39.1); MEAN CORPUSCULAR HEMOGLOBIN 22.7 pg (28-32); MEAN CORPUSCULAR HGB CONC 31.7 g/dL (31-35); MEAN CORPUSCULAR VOLUME 71.5 fL (81-99); MONOCYTES % 11.1 % (4.4-11.3); NEUTROPHILS # (AUTO) 5.4 (2.1-6.9); NEUTROPHILS % 60.5 % (38.7-80.0); PLATELET COUNT 421 x10e3/uL (140-360); RED BLOOD COUNT 3.79 x10e6/uL (3.6-5.1); RED CELL DISTRIBUTION WIDTH 19.4 % (11.7-14.4)
[2018-11-16 05:48] LABS: ANION GAP 15.6 mmol/L (8-16); BLOOD UREA NITROGEN < 5 mg/dL (7-26); CARBON DIOXIDE 19 mmol/L (22-29); CHLORIDE 105 mmol/L (98-107); CREATININE, SERUM 0.67 mg/dL (0.57-1.11); EST GLOMERULAR FILTRATION RATE > 60 ML/MIN (60-); GLUCOSE 92 mg/dL (74-118); LIPASE 9 U/L (8-78); SODIUM 137 mmol/L (136-145)
[2018-11-16 05:51] LABS: BUN/CREATININE RATIO 7 (6-25)
[2018-11-16 05:53] LABS: POTASSIUM 2.6 mmol/L (3.5-5.1)
--- NOTE | 2018-11-16 06:07 | NUR ---
Call placed to Dr. Amaya for pt on +K 2.6; Awaiting orders; Pt has no complaints of chest pain.
[2018-11-16 06:09] LABS: FOLATE 19.9 ng/mL (7.0-15.4)
[2018-11-16 06:23] LABS: % IRON SATURATION 5 % (15-50); IRON 26 ug/dL (50-170); TOTAL IRON BINDING CAPACITY 549 ug/dL (261-478); TRANSFERRIN 392 mg/dL (180-382)
--- NOTE | 2018-11-16 06:30 | NUR ---
Dr. Jose Luis berger; Order to give 40meq of potassium IV now given.
--- NOTE | 2018-11-16 07:25 | NUR ---
report given to oncoming nurse
[2018-11-16] MEDS ORDERED: POTASSIUM CHLORIDE 20MEQ/100ML 200 ML IV ONE (07:30)
--- NOTE | 2018-11-16 07:30 | NUR ---
pt resting in bed, no s/s distress at this time. no c/o pain. will continue to monitor.
--- NOTE | 2018-11-16 07:42 | Progress Note ---
DATE: The patient is here for intractable nausea and vomiting. The patient is doing better. The nausea is being controlled with Zofran. She complains of some pain but not intolerable. The patient is able to tolerate it. The patient has had a few sips of fluid without any problems and has been keeping it down. PHYSICAL EXAMINATION VITAL SIGNS: Temperature is 98.9. Pulse of 102. Respirations of 18. Blood pressure is 101/56. Pulse oximetry of 97%. HEENT: Normocephalic and atraumatic. Pupils are reactive to light and accommodation. CV: S1 and S2 normal. Regular rate and rhythm. ABDOMEN: Slightly tender in the epigastric area. EXTREMITIES: No clubbing. No cyanosis. No edema. LABORATORY VALUES: Today's white count has come down to 8.84, hemoglobin 8.6, hematocrit 27.1. Chemistries: Sodium 137, potassium 2.6, BUN less than 5, creatinine 0.67. Iron was low at 26, TIBC 549, percent saturation of 5, and transferrin of 329. The patient's B12 is 347 and folate of 19.9. MICROBIOLOGY: Blood cultures and urine cultures are pending. ASSESSMENT 1. Acute gastroenteritis. 2. History of hypertension. 3. History of cannabis abuse. 4. History of depression. PLAN: Continue with IV resuscitation, fluid resuscitation. Will decrease the fluids to about 70 mL an hour secondary to hemodilution. Hypokalemia: Replace the potassium. Iron deficiency anemia: Will give her some iron. The patient has been counseled on cannabis use and withdrawal. The patient is also on Rocephin for urinary tract infection. Will continue monitoring her white count and possible discharge tomorrow. Further recommendations per clinical course. Dr. Barros is also following the patient. Will continue monitoring her along with Dr. Barros. Job#: [id number]
[2018-11-16] MEDS: SODIUM CHLORIDE 0.9% 1000ML 1,000 ML IV SCH ×4 (08:34→20:42)
[2018-11-16] MEDS: CITALOPRAM HYDROBROMIDE 20 MG TAB PO SCH (08:35)
[2018-11-16] MEDS: PANTOPRAZOLE 40 MG 10ML VIAL IV SCH (08:35)
--- NOTE | 2018-11-16 08:57 | NUR ---
CASE MANAGEMENT INITIAL ASSESSMENT Automotive Production Worker to bedside to discuss plan of care with patient/family. CM/SW role and care transitions discussed. Anticipated discharge plan discussed along with duration of care. CM/SW discussed patients right to make decisions in care. CM/SW work hours given. Patient lives: IN HOUSE WITH FAMILY Admit/Transfer: VIA HOME POA/Emergency contact: MOTHER IS JASE DOZIER [phone] Current/Previous Home Health: NONE PCP/Follow-up Care: [facility] Current/Previous DME: NONE Other Services: NONE Employment Status: UNEMPLOYED AT THIS TIME Areas of Concerns: SELF PAY Referral Needs: GAVE PACKET OF INFORMATION WITH COMM[employer]ITY [employer] FOR ASSISTANCE WITH LOW TO NO INCOME TO PATIENT. RESOURCES THAT PATIENT MAY BE ABLE TO FOLLOW UP UPON DISCHARGE. PT EDUCATED ON EACH RESOURCE AND UNDERSTANDING HOW TO FOLLOW UP TO SEE IF QUALIFIED FOR EACH RESOURCE. Education Needs: NONE IMM/SON given and signed (if applicable): NA Goal for discharge: RETURN HOME INDEPENDENTLY CM/SW left business card at the bedside with contact information. Name and number was also written on the patients whiteboard. Patient verbalized understanding of discussion. CM will follow-up with ongoing discharge and transition of care needs.
[2018-11-16] MEDS ORDERED: PANTOPRAZOLE 40 MG 10ML VIAL IV SCH (09:00)
[2018-11-16] MEDS ORDERED: ACETAMINOPHEN 325 MG TAB PO PRN (20:15)
[2018-11-16] MEDS: QUETIAPINE FUMARATE 100 MG TAB PO SCH (20:42)
--- NOTE | 2018-11-16 22:00 | NUR ---
Pt states she crawded on floor to restroom. Patient was sitting on commode when I s/w her. Not sure if this info is correct. Continue monitor patient. Addendum: 11/17/18 at 0731 by Nishi Li RN Error charted on wrong patient.
[2018-11-17] VITALS: BP 105/56
[2018-11-17] MEDS: CEFTRIAXONE SOD 1 GM VIAL IV SCH (00:30)
--- NOTE | 2018-11-17 00:38 | NUR ---
Dr Barros o9n the floor to see patient.
[2018-11-17 04:00] VITALS: BP 127/80
[2018-11-17 05:23] LABS: BASOPHILS % 0.6 % (0.0-1.0); EOSINOPHILS # (AUTO) 0.1 (0.0-0.4); EOSINOPHILS % 1.7 % (0.0-6.0); HEMATOCRIT 26.8 % (34.2-44.1); HEMOGLOBIN 8.3 g/dL (12.0-16.0); LYMPHOCYTES # (AUTO) 2.7 (1.0-3.2); MEAN CORPUSCULAR HEMOGLOBIN 22.7 pg (28-32); MEAN CORPUSCULAR VOLUME 73.2 fL (81-99); MONOCYTES # (AUTO) 0.9 (0.2-0.8); MONOCYTES % 14.2 % (4.4-11.3); NEUTROPHILS # (AUTO) 2.8 (2.1-6.9); NEUTROPHILS % 42.3 % (38.7-80.0); PLATELET COUNT 392 x10e3/uL (140-360); RED BLOOD COUNT 3.66 x10e6/uL (3.6-5.1); RED CELL DISTRIBUTION WIDTH 19.9 % (11.7-14.4)
[2018-11-17 05:40] LABS: ANION GAP 13.7 mmol/L (8-16); BLOOD UREA NITROGEN < 5 mg/dL (7-26); CARBON DIOXIDE 20 mmol/L (22-29); CHLORIDE 111 mmol/L (98-107); CREATININE, SERUM 0.69 mg/dL (0.57-1.11); EST GLOMERULAR FILTRATION RATE > 60 ML/MIN (60-); GLUCOSE 88 mg/dL (74-118); SODIUM 142 mmol/L (136-145)
[2018-11-17 05:42] LABS: BUN/CREATININE RATIO 7 (6-25); POTASSIUM 2.7 mmol/L (3.5-5.1)
[2018-11-17] MEDS: METOCLOPRAMIDE HCL 10 MG/2ML VIAL IV SCH ×4 (06:00→17:39)
[2018-11-17] MEDS ORDERED: POTASSIUM CHLORIDE 20 MEQ TAB CR PO STA (06:13)
[2018-11-17] MEDS ORDERED: POTASSIUM CHLORIDE 20MEQ/100ML 200 ML IV ONE (06:15)
[2018-11-17] MEDS ORDERED: TRAMADOL HCL 50 MG TAB PO PRN (06:30)
--- NOTE | 2018-11-17 07:11 | Progress Note ---
DATE: SUBJECTIVE: The patient is doing better. Complains of some headache. Tylenol is not helping with her headache. She is tolerating clear liquid diet. Positive for some nausea, but no vomiting, plus loose bowel movements. OBJECTIVE: VITAL SIGNS: Temperature is 97, blood pressure is 127/80 and respirations of 18. Patient's pulse is 99. Patient is on room air and 98% sats. HEENT: Normocephalic and atraumatic. Pupils are reactive to light and accommodation. CV: S1 and S2 normal. Regular rate and rhythm. EXTREMITIES: No edema present. LABORATORY VALUES: Today's hemoglobin is 8.3, hematocrit 26.8. Chemistries: Sodium of 142, potassium is 2.7, and BUN is less than 5, creatinine is 0.69. ASSESSMENT AND PLAN: 1. Cannabis-induced emesis, better. Patient has been advanced to a full liquid diet. 2. Iron deficiency and B12 deficiency, we will continue monitoring. 3. Patient with a history of depression and anxiety, we will continue her home medications. 4. Hyperkalemia, we will replace the potassium right now. Further recommendations and clinical course, we will continue to monitor the patient, possibly can be discharged today if she is tolerating p.o. diet. Job#: [id number] CANDELARIA
[2018-11-17] MEDS: CITALOPRAM HYDROBROMIDE 20 MG TAB PO SCH (08:30)
[2018-11-17] MEDS: CYANOCOBALAMIN INJ 1,000 MCG/ML VIAL IM SCH (08:30)
[2018-11-17 08:42] VITALS: BP 121/73
[2018-11-17] MEDS: IRON SUCROSE 100 MG in SODIUM CHLORIDE 0.9% 100 ML 100 ML IV SCH (11:55)
[2018-11-17] MEDS: SODIUM CHLORIDE 0.9% 1000ML 1,000 ML IV SCH (12:00)
[2018-11-17 12:32] VITALS: BP 121/68
[2018-11-17 15:20] VITALS: BP 114/73
[2018-11-17 15:57] LABS: BLOOD UREA NITROGEN < 5 mg/dL (7-26); CALCIUM 8.4 mg/dL (8.4-10.2); CHLORIDE 111 mmol/L (98-107); CREATININE, SERUM 0.67 mg/dL (0.57-1.11); EST GLOMERULAR FILTRATION RATE > 60 ML/MIN (60-); GLUCOSE 84 mg/dL (74-118); POTASSIUM 3.7 mmol/L (3.5-5.1); SODIUM 141 mmol/L (136-145)
[2018-11-17 15:59] LABS: BUN/CREATININE RATIO 7 (6-25)
[2018-11-17 16:08] LABS: ANION GAP 12.7 mmol/L (8-16); CARBON DIOXIDE 21 mmol/L (22-29)
--- NOTE | 2018-11-17 19:18 | NUR ---
report given to oncoming nurse for continued care.
[2018-11-17 21:37] VITALS: BP 123/75
[2018-11-17] MEDS: QUETIAPINE FUMARATE 100 MG TAB PO SCH (22:26)
--- NOTE | 2018-11-17 22:34 | NUR ---
Patient laying in bed with HOB slightly elevated. AAO x 4. No sob noted. No acute distress noted. Bed at low position and locked. Call light within reach and reminded patient to utilize when assistance is needed. Patient in stable condition and will continue to monitor. Patient noted with infiltrated IV access to right wrist, removed, pressure applied, no active bleeding noted. Attempted to gain new PIV access, unsuccessful, Dr. Amaya notified and okayed to be without an access. Received an order to discontinue IV fluid and change IV reglan to PO reglan.
[2018-11-18] VITALS: BP 129/77
[2018-11-18] MEDS: CEFTRIAXONE SOD 1 GM VIAL IV SCH (00:30)
[2018-11-18 04:25] VITALS: BP 127/77
[2018-11-18 05:53] LABS: BLOOD UREA NITROGEN < 5 mg/dL (7-26); BUN/CREATININE RATIO 8 (6-25); CALCIUM 8.4 mg/dL (8.4-10.2); CARBON DIOXIDE 23 mmol/L (22-29); CHLORIDE 107 mmol/L (98-107); CREATININE, SERUM 0.66 mg/dL (0.57-1.11); EST GLOMERULAR FILTRATION RATE > 60 ML/MIN (60-); GLUCOSE 86 mg/dL (74-118); SODIUM 140 mmol/L (136-145)
[2018-11-18] MEDS: METOCLOPRAMIDE HCL 10 MG TAB PO SCH ×2 (06:18)
--- NOTE | 2018-11-18 07:04 | NUR ---
Received patient mid fowlers position, side rails upx2, call light within reach. AAOX4 to time, person, place, situation. Respirations even and unlabored. Instructed patient to use call light for assistance. Voiced understanding.
--- NOTE | 2018-11-18 07:06 | NUR ---
aware of potassium levels. Prescription for potassium left on chart.
[2018-11-18] MEDS ORDERED: POTASSIUM CHLO20 ME1 PO (07:40)
[2018-11-18] MEDS: IRON SUCROSE 100 MG in SODIUM CHLORIDE 0.9% 100 ML 100 ML IV SCH (07:58)
[2018-11-18 08:00] VITALS: BP 135/68
[2018-11-18] MEDS: CYANOCOBALAMIN INJ 1,000 MCG/ML VIAL IM SCH (08:08)
[2018-11-18] MEDS: CITALOPRAM HYDROBROMIDE 20 MG TAB PO SCH (08:08)
[2018-11-18 08:09] VITALS: BP 135/68
--- NOTE | 2018-11-18 08:09 | Progress Note ---
DATE SUBJECTIVE: Patient is here for intractable nausea and vomiting status post marijuana use. Patient is currently still a little nauseous, but able to tolerate a full liquid diet. Has been on fluids. Potassium has been replaced. Currently with no other symptoms except a bit of nausea. OBJECTIVE VITAL SIGNS: Temperature is 98.5, pulse of 88, respirations of 18, blood pressure is 127/72, pulse oximetry 97%. HEENT: Normocephalic, atraumatic. Pupils reactive to light and accommodation. CVS: S1, S2 normal. Regular rate and rhythm. ABDOMEN: Nontender, nondistended. MEDICATIONS: Patient is on Reglan 10 mg q.6 hours. Her regular medications are quetiapine 600 mg at nighttime, sucrose daily for iron deficiency, cyanocobalamin daily, citalopram 40, tramadol 50, Zofran IV q.6, diphenhydramine, Rocephin 1 g q.12 hours, acetaminophen, and propranolol. MICROBIOLOGY RESULTS: No growth in the last 48 hours in blood cultures. Urine culture is also negative. LABORATORY VALUES: Today's sodium is 140, potassium is 3.0, chloride of 107. No hematology results were done. ASSESSMENT AND PLAN 1. Gastroenteritis, cannabis-induced emesis, which is better. 2. Iron deficiency and B12 deficiency. We will continue replacing and monitoring. 3. Patient with history of depression, anxiety, and bipolar disease. We will continue to give her home medication. Possible discharge today. We will discharge her on Zofran 4 mg 2 tablets every 6 hours as needed and also potassium for about 10 days until her GI tract normalizes. Patient is given strict ER warnings and also cannabis avoidance has been instituted. Job#: [id number] ROBERT
--- NOTE | 2018-11-18 08:45 | NUR ---
No IV site. Taken via wheelchair by PCT to personal car. AAOX4 to time, person, place, situation. Respirations even and unlabored. Denies pain. Discharge instructions, rx, and all personal belongings taken with patient.
== END 2018-11-18 08:49 | disposition home or self-care (01) ==
LOC: ER 21:10 → ERHOLD 23:41 → IMCU 11-15 15:50
PROVIDERS: ADMIT Family Medicine; ATTEND Family Medicine
DX: F12.188 Cannabis abuse with other cannabis-induced disorder (principal); N30.00 Acute cystitis without hematuria; E86.0 Dehydration; K85.90 Acute pancreatitis without necrosis or infection, unspecified; I10 Essential (primary) hypertension; F41.9 Anxiety disorder, unspecified; Z83.3 Family history of diabetes mellitus; Z82.49 Family history of ischemic heart disease and other diseases of the circulatory system; Z88.5 Allergy status to narcotic agent; F32.9 Major depressive disorder, single episode, unspecified; E87.6 Hypokalemia; D50.9 Iron deficiency anemia, unspecified; E53.8 Deficiency of other specified B group vitamins; Z86.010 Personal history of colon polyps
CPT/HCPCS: 36415 ×5; 74022; 80048 ×3; 80053 ×2; 80307; 81001; 81025; 82150; 82607; 82746; 83540; 83690 ×2; 83735; 84466; 85025 ×4; 85045; 87040; 87086; 96372 ×2; 96374; 96375 ×2; 96376; 99284; G0378 ×5; J0500; J0696 ×3; J1200; J1756 ×2; J2405 ×3; J2550; J2765 ×3; J3420 ×2; J3480 ×2; J7030 ×4

== ENCOUNTER 2018-11-20 17:00 | Inpatient (IN) | payer SELFPAY ==
[~2018-11-20] VITALS: Ht 165.1 cm; Wt 85.3 kg
[~2018-11-20 17:00] MED LIST changes: +POTASSIUM CHLO20 ME1 PO
--- OUTSIDE RECORDS SUMMARY | 2018-11-20 17:02 | XMS REPORT | Clinical Summary ---
Author Author MATHEW [facility] Address Unknown Phone Unavailable Care Team Providers Care Audiovisual Production Specialist Name Role Phone PCP Unavailable Allergies Comments [...] Medication Active vitamin Take 1 tablet 0 w/roodesx-yusn-efrlrh by mouth ( PLUS) 27 mg daily. [...] Not on file Results Not on fileafter 11/19/2017 Insurance Payer Benefit Subscriber ID Type Phone Address Plan / Group BLUE CROSS/BLUE [employer]IELD BCBS ADV xxxxxxxxxxxx [phone] [address] [place] [address] EXCHANGE
[2018-11-20] MEDS ORDERED: SODIUM CHLORIDE 0.9% 1000ML 1,000 ML IV STA (17:19)
[2018-11-20] MEDS ORDERED: ONDANSETRON HCL INJ 2 MG/ML VIAL IV STA (17:19)
[2018-11-20 17:46] LABS: BASOPHILS % 0.2 % (0.0-1.0); EOSINOPHILS # (AUTO) 0.2 (0.0-0.4); EOSINOPHILS % 1.7 % (0.0-6.0); HEMATOCRIT 33.5 % (34.2-44.1); HEMOGLOBIN 10.5 g/dL (12.0-16.0); LYMPHOCYTES # (AUTO) 1.8 (1.0-3.2); MEAN CORPUSCULAR HEMOGLOBIN 22.9 pg (28-32); MEAN CORPUSCULAR HGB CONC 31.3 g/dL (31-35); MONOCYTES # (AUTO) 1.2 (0.2-0.8); MONOCYTES % 9.3 % (4.4-11.3); NEUTROPHILS # (AUTO) 9.5 (2.1-6.9); NEUTROPHILS % 74.4 % (38.7-80.0); PLATELET COUNT 511 x10e3/uL (140-360); RED BLOOD COUNT 4.59 x10e6/uL (3.6-5.1); RED CELL DISTRIBUTION WIDTH 21.6 % (11.7-14.4)
[2018-11-20 17:53] LABS: INR 0.94; PROTHROMBIN TIME 13.4 seconds (11.9-14.5)
[2018-11-20 17:54] LABS: PARTIAL THROMBOPLASTIN TIME 23.5 seconds (23.8-35.5)
[2018-11-20 18:02] LABS: ALANINE AMINOTRANSFERASE 33 IU/L (0-55); ALBUMIN 3.8 g/dL (3.5-5.0); ALBUMIN/GLOBULIN RATIO 0.9 (0.8-2.0); ALKALINE PHOSPHATASE 96 IU/L (40-150); AMYLASE 76 U/L (25-125); ANION GAP 21.4 mmol/L (8-16); BLOOD UREA NITROGEN 8 mg/dL (7-26); BUN/CREATININE RATIO 9 (6-25); CALCIUM 9.7 mg/dL (8.4-10.2); CARBON DIOXIDE 16 mmol/L (22-29); CHLORIDE 105 mmol/L (98-107); CREATININE, SERUM 0.86 mg/dL (0.57-1.11); EST GLOMERULAR FILTRATION RATE > 60 ML/MIN (60-); GLUCOSE 124 mg/dL (74-118); LIPASE 18 U/L (8-78); MAGNESIUM 1.6 MG/DL (1.3-2.1); POTASSIUM 3.4 mmol/L (3.5-5.1); SODIUM 139 mmol/L (136-145)
[2018-11-20] MEDS ORDERED: DIATRIZOATE MEGL/DIATRIZOA SOD 30 ML BTL PO ONE (19:01)
[2018-11-20] MEDS ORDERED: SODIUM CHLORIDE 0.9% 1000ML 1,000 ML IV SCH (19:30)
[2018-11-20] MEDS ORDERED: METOCLOPRAMIDE HCL 10 MG/2ML VIAL IV ONE (19:30)
[2018-11-20] MEDS ORDERED: DIPHENHYDRAMINE HCL INJ 50 MG/ML VIAL IV ONE (19:30)
[2018-11-20 20:34] LABS: AMPHETAMINES SCREEN,URINE NEGATIVE (NEGATIVE); BENZODIAZEPINES SCREEN,URINE POSITIVE (NEGATIVE); PHENCYCLIDINE SCREEN,URINE NEGATIVE (NEGATIVE)
[2018-11-20 20:39] LABS: BILIRUBIN,URINE NEGATIVE (NEGATIVE); CLARITY,URINE CLEAR (CLEAR); COLOR,URINE STRAW (YELLOW); KETONES,URINE 2+ (NEGATIVE); LEUKOCYTE ESTERASE ,URINE TRACE (NEGATIVE); NITRITE,URINE NEGATIVE (NEGATIVE); PROTEIN,URINE DIPSTICK NEGATIVE (NEGATIVE); URINE UROBILINOGEN 0.2 mg/dL (0.2 - 1)
[2018-11-20 20:41] LABS: EPITHELIAL CELLS,URINE MANY /LPF
[2018-11-20 20:42] LABS: RBC,URINE 0-5 /HPF (0-5)
[2018-11-20] MEDS ORDERED: POTASSIUM CHLORIDE 20 MEQ TAB CR PO STA (21:10)
--- NOTE | 2018-11-20 21:13 | Diagnostic Imaging Report ---
EXAM: CT ABDOMEN AND PELVIS without IV CONTRAST INDICATION: Nausea and vomiting COMPARISON: CT of the abdomen and pelvis with IV contrast February 20, 2016 TECHNIQUE: The abdomen and pelvis were scanned using a multidetector helical scanner. Coronal and sagittal reformations were obtained. Dose modulation, iterative reconstruction, and/or weight based adjustment of the mA/kV was utilized to reduce the radiation dose to as low as reasonably achievable. Routine protocol performed. IV Contrast: None Oral Contrast: Gastrografin CTDIvol has been reviewed. It is below the limits set by the Radiation Protocol Committee (RPC). FINDINGS: LOWER THORAX: No consolidations LIVER: No masses BILIARY: The gallbladder has been removed. No ductal dilation. SPLEEN: No masses PANCREAS: No masses ADRENALS: No nodules RIGHT KIDNEY: No nephroureterolithiasis or hydronephrosis. LEFT KIDNEY: No nephroureterolithiasis or hydronephrosis. GI TRACT: Mild wall thickening predominantly involving the distal transverse and descending colon with mild adjacent fat stranding. No bowel obstruction. The appendix is not identified. VESSELS: Normal PERITONEUM/RETROPERITONEUM: No free air or fluid LYMPH NODES: No lymphadenopathy REPRODUCTIVE ORGANS: Normal BLADDER: Normal SOFT TISSUES: Normal BONES: No suspicious bone lesions. IMPRESSION: Findings consistent with colitis, predominantly involving the descending colon. Signed by: Dr. Ninfa Sparks M.D. on 11/20/2018 9:10 PM
[2018-11-20] MEDS ORDERED: CIPROFLOXACIN 400 MG/D5W 200ML 200 ML IV ONE (21:30)
[2018-11-20] MEDS ORDERED: METRONIDAZOLE 500MG/NS 100ML 100 ML IV ONE (21:30)
--- OUTSIDE RECORDS SUMMARY | 2018-11-20 21:42 | XMS REPORT | Clinical Summary ---
Author Author MATHEW [facility] Address Unknown Phone Unavailable Care Team Providers Care Reference Librarian Name Role Phone PCP Unavailable Allergies Comments [...] Medication Active vitamin Take 1 tablet 0 w/ggarndu-tuwa-vqdxvn by mouth ( PLUS) 27 mg daily. [...] Group BLUE CROSS/BLUE SHIELD BCBS ADV xxxxxxxxxxxx [phone] [address] [place] [address] EXCHANGE
[2018-11-20] MEDS ORDERED: DIPHENHYDRAMINE HCL INJ 50 MG/ML VIAL IV PRN (21:45)
[2018-11-20] MEDS ORDERED: ONDANSETRON HCL INJ 2 MG/ML VIAL IV PRN (21:45)
[2018-11-20] MEDS ORDERED: HYDROMORPHONE 2MG/ML 2 MG/ML ML IV PRN (21:45)
[2018-11-20] MEDS ORDERED: METRONIDAZOLE 500MG/NS 100ML IV SCH (22:00)
[2018-11-20] MEDS: KCL 20MEQ/.9 SOD CHL 1,000 ML IV SCH (22:38)
[2018-11-20 23:40] VITALS: BP 172/100
[2018-11-21] VITALS (8 sets, daily range): BP systolic 107–172; BP diastolic 58–101
[2018-11-21] MEDS: ONDANSETRON HCL INJ 2 MG/ML VIAL IV PRN ×3 (00:05→08:30)
[2018-11-21] MEDS: METOCLOPRAMIDE HCL 10 MG/2ML VIAL IV SCH ×4 (00:29→17:28)
[2018-11-21] MEDS: LEVOFLOXACIN 500MG/D5W 100ML IV SCH ×2 (01:00→21:45)
[2018-11-21 05:09] LABS: BASOPHILS % 0.1 % (0.0-1.0); HEMATOCRIT 36.1 % (34.2-44.1); HEMOGLOBIN 11.3 g/dL (12.0-16.0); LYMPHOCYTES % 10.6 % (18.0-39.1); MEAN CORPUSCULAR HGB CONC 31.3 g/dL (31-35); MEAN CORPUSCULAR VOLUME 73.5 fL (81-99); MONOCYTES # (AUTO) 0.3 (0.2-0.8); MONOCYTES % 3.4 % (4.4-11.3); NEUTROPHILS # (AUTO) 8.3 (2.1-6.9); NEUTROPHILS % 85.6 % (38.7-80.0); PLATELET COUNT 552 x10e3/uL (140-360); RED BLOOD COUNT 4.91 x10e6/uL (3.6-5.1)
[2018-11-21 05:30] LABS: ALANINE AMINOTRANSFERASE 33 IU/L (0-55); ALBUMIN 3.9 g/dL (3.5-5.0); ALBUMIN/GLOBULIN RATIO 0.9 (0.8-2.0); ALKALINE PHOSPHATASE 101 IU/L (40-150); ANION GAP 20.2 mmol/L (8-16); BLOOD UREA NITROGEN < 5 mg/dL (7-26); CALCIUM 9.2 mg/dL (8.4-10.2); CARBON DIOXIDE 17 mmol/L (22-29); CHLORIDE 102 mmol/L (98-107); CREATININE, SERUM 0.71 mg/dL (0.57-1.11); EST GLOMERULAR FILTRATION RATE > 60 ML/MIN (60-); GLUCOSE 117 mg/dL (74-118); POTASSIUM 3.2 mmol/L (3.5-5.1); SODIUM 136 mmol/L (136-145)
[2018-11-21 05:31] LABS: BUN/CREATININE RATIO 7 (6-25)
[2018-11-21] MEDS: KCL 20MEQ/.9 SOD CHL 1,000 ML IV SCH (05:45)
[2018-11-21] MEDS: METRONIDAZOLE 500MG/NS 100ML IV SCH ×3 (06:00→17:28)
--- NOTE | 2018-11-21 06:33 | NUR ---
PT IS TRANSFERRED FROM ER .PT IS AOX3 .PT HAS NAUSEA AND VOMITING .C/O ALLEY AT LOWER ABD.RESPIRATIONS ARE EVEN AND UNLABORED .SKIN WARM AND DRY TO TOUCH .NS WITH 20KCL RUNNING AT 100 CC/HR AT LEFT WRIST .FAMILY AT THE BEDSIDE .CALL LIGHT WITH IN REACH.CONTINUE TO MONITOR
--- NOTE | 2018-11-21 06:36 | NUR ---
PT IV OUT PUT NEW ONE AT LEFT FORE ARM .PT HAS NAUSEA AND VOMITING GIVEN ORDERED ZOFRAN .CONTINUE TO . MONITOR
--- NOTE | 2018-11-21 07:30 | NUR ---
PT UP IN BED NO [id number] NOTED,
[2018-11-21] MEDS ORDERED: DIAZEPAM 5 MG TAB PO PRN ×2 (09:15→09:45)
[2018-11-21] MEDS ORDERED: PROPRANOLOL HCL 10 MG TAB PO PRN (09:30)
[2018-11-21] MEDS: SOD CHL 0.45%/POT CHL 20MEQ 1,000 ML IV SCH (09:45)
[2018-11-21] MEDS ORDERED: HYDROMORPHONE 1MG/1ML INJ IV PRN (10:30)
--- NOTE | 2018-11-21 10:55 | History and Physical ---
CHIEF COMPLAINT: Nausea and vomiting. HISTORY OF PRESENT ILLNESS: The patient is a 38-year-old woman. She has a history of intermittent nausea and GI problems for almost 10 years. She initially had a cholecystectomy about 9 years ago. In the last 2 years, she has been admitted 4-5 times with hyperemesis and vomiting. She had an endoscopy and colonoscopy that showed only a polyp. She now reports recurrent nausea or vomiting for 1-2 days. She also notes some mild diarrhea and some lower abdominal pain. She denies any fevers. PAST MEDICAL HISTORY 1. Recurrent nausea and vomiting of unclear etiology. 2. Psychiatric disease requiring high doses of Seroquel and Celexa. SOCIAL HISTORY: The patient is not actively smoking tobacco or drinking alcohol. She smokes marijuana about 3-4 times a week. She does not use any synthetic cannabinoids. ALLERGIES: SHE REPORTS BEING ALLERGIC TO MORPHINE. FAMILY HISTORY: Significant for hypertension, diabetes mellitus and hyperlipidemia. REVIEW OF SYSTEMS: She has no fever. She has no headache. She is not having any neck pain. She denies any chest pain or difficulty breathing. She does have some lower abdominal pain. She has nausea and vomiting, as well as rare diarrhea. She has no focal neurological complaints. PHYSICAL EXAMINATION VITALS: The patient is afebrile. The blood pressure is 167/96 and the pulse is 80. HEENT: Shows no facial swelling or erythema. The nasal mucosa is normal. The oropharynx is normal. LYMPHATIC: Shows no submandibular, cervical or supraclavicular adenopathy. CARDIOVASCULAR: Reveals a regular rate and rhythm with normal S1 and S2. There are no murmurs or rubs. LUNGS: Auscultation of the lungs shows clear breath sounds bilaterally. There is no wheezing. ABDOMEN: Soft and nontender. There is no rebound or guarding. EXTREMITIES: Shows no leg edema or calf tenderness. There is no cyanosis or clubbing. SKIN: Shows no rashes. EXTREMITIES: No cyanosis or clubbing. NEUROLOGIC: Shows no focal abnormalities. LABORATORY DATA: White blood cell count is 9.6, hemoglobin is 11.3, and platelet count is 552,000. The BUN to creatinine ratio is 5 to 0.71. Glucose is 117. The liver tests are within normal limits. IMPRESSION 1. Severe nausea and vomiting with dehydration. 2. Mixed anion and non-anion gap metabolic acidosis. 3. Colitis. 4. Anemia of unclear etiology. 5. Depression. PLAN 1. Continue IV fluids and monitor electrolytes. 2. Stool studies and GI evaluation for colitis. 3. Antiemetics. Job#: [id number] CHANEL
[2018-11-21] MEDS: HYDROMORPHONE 2MG/ML 2 MG/ML ML IV PRN ×2 (11:40→18:00)
--- NOTE | 2018-11-21 15:03 | NUR ---
SOCIAL WORK INITIAL ASSESSMENT Community Support Associate to bedside to discuss plan of care with patient/family. CM/SW role and care transitions discussed. Anticipated discharge plan discussed along with duration of care. CM/SW discussed patients right to make decisions in care. CM/SW work hours given. Patient lives: AT HOME WITH PARENTS. Admit/Transfer: VIA ED POA/Emergency contact: MOTHER JASE [phone] Current/Previous Home Health: NONE PCP/Follow-up Care: CHLOE Current/Previous DME: [facility] Other Services: NA Employment Status: UNEMPLOYED Areas of Concerns: SELF PAY GAVE PACKET Referral Needs: GAVE PACKET OF INFORMATION WITH COMMUNITY RESOURCES FOR ASSISTANCE WITH LOW TO NO INCOME TO PATIENT. RESOURCES THAT PATIENT MAY BE ABLE TO FOLLOW UP UPON DISCHARGE. PT EDUCATED ON EACH RESOURCE AND UNDERSTANDING HOW TO FOLLOW UP TO SEE IF QUALIFIED FOR EACH RESOURCE. Education Needs: TO FOLLOW UP WITH PCP IMM/SON given and signed (if applicable): NA Goal for discharge: RETURN HOME INDEPENDENTLY CM/SW left business card at the bedside with contact information. Name and number was also written on the patients whiteboard. Patient verbalized understanding of discussion. CM will follow-up with ongoing discharge and transition of care needs.
--- NOTE | 2018-11-21 17:28 | NUR ---
PT C/O ABD PAIN MEDICATED ,NO DISTRESS NOTED,IV PATENT
--- NOTE | 2018-11-21 20:12 | NUR ---
RECEIVED PT SITTING ON THE BED ,DENIES PAIN PT C/O NAUSEA AND VOMITING .FAMILY AT THE BEDSIDE .CALL LIGHT WITH IN REACH
[2018-11-21] MEDS ORDERED: QUETIAPINE FUMARATE 100 MG TAB PO SCH (21:00)
[2018-11-21] MEDS ORDERED: CITALOPRAM HYDROBROMIDE 20 MG TAB PO ONE (21:30)
[2018-11-21] MEDS ORDERED: QUETIAPINE FUMARATE 100 MG TAB PO ONE (22:30)
[2018-11-22] VITALS (7 sets, daily range): BP systolic 92–137; BP diastolic 54–89
[2018-11-22] MEDS: HYDROMORPHONE 2MG/ML 2 MG/ML ML IV PRN ×4 (01:10→18:41)
[2018-11-22] MEDS: ONDANSETRON HCL INJ 2 MG/ML VIAL IV PRN ×2 (01:10→07:12)
[2018-11-22] MEDS: SOD CHL 0.45%/POT CHL 20MEQ 1,000 ML IV SCH ×4 (01:39→17:22)
[2018-11-22 05:21] LABS: BASOPHILS % 0.5 % (0.0-1.0); EOSINOPHILS # (AUTO) 0.2 (0.0-0.4); EOSINOPHILS % 2.4 % (0.0-6.0); HEMATOCRIT 28.9 % (34.2-44.1); HEMOGLOBIN 8.9 g/dL (12.0-16.0); LYMPHOCYTES # (AUTO) 2.7 (1.0-3.2); LYMPHOCYTES % 41.5 % (18.0-39.1); MEAN CORPUSCULAR HEMOGLOBIN 22.8 pg (28-32); MEAN CORPUSCULAR HGB CONC 30.8 g/dL (31-35); MEAN CORPUSCULAR VOLUME 73.9 fL (81-99); MONOCYTES # (AUTO) 0.9 (0.2-0.8); MONOCYTES % 13.4 % (4.4-11.3); NEUTROPHILS # (AUTO) 2.7 (2.1-6.9); NEUTROPHILS % 41.7 % (38.7-80.0); PLATELET COUNT 393 x10e3/uL (140-360); RED BLOOD COUNT 3.91 x10e6/uL (3.6-5.1); RED CELL DISTRIBUTION WIDTH 22.1 % (11.7-14.4)
[2018-11-22 05:44] LABS: ALANINE AMINOTRANSFERASE 29 IU/L (0-55); ALBUMIN 2.9 g/dL (3.5-5.0); ALBUMIN/GLOBULIN RATIO 0.9 (0.8-2.0); ALKALINE PHOSPHATASE 70 IU/L (40-150); ANION GAP 13.1 mmol/L (8-16); BLOOD UREA NITROGEN < 5 mg/dL (7-26); CALCIUM 8.4 mg/dL (8.4-10.2); CARBON DIOXIDE 21 mmol/L (22-29); CHLORIDE 106 mmol/L (98-107); CREATININE, SERUM 0.71 mg/dL (0.57-1.11); EST GLOMERULAR FILTRATION RATE > 60 ML/MIN (60-); GLUCOSE 87 mg/dL (74-118); MAGNESIUM 1.7 MG/DL (1.3-2.1); POTASSIUM 3.1 mmol/L (3.5-5.1); SODIUM 137 mmol/L (136-145)
[2018-11-22 05:46] LABS: BUN/CREATININE RATIO 7 (6-25)
[2018-11-22] MEDS: METRONIDAZOLE 500MG/NS 100ML IV SCH ×5 (05:58→23:15)
[2018-11-22] MEDS: METOCLOPRAMIDE HCL 10 MG/2ML VIAL IV SCH ×5 (05:58→23:15)
--- NOTE | 2018-11-22 06:36 | NUR ---
PT C/O PAIN .DR KEITH HAVE SEEN THE PT FAMILY AT THE BEDSIDE CALL LIGHT WITH IN REACH
[2018-11-22 06:49] LABS: RBC MORPHOLOGY COMMENT NORMAL
[2018-11-22 06:50] LABS: HYPOCHROMASIA SLIGHT
[2018-11-22 06:52] LABS: ANISOCYTOSIS SLIGHT; HOWELL-JOLLY BODIES FEW; PLATELET ESTIMATE ADEQUATE; PLATELET MORPHOLOGY COMMENT NORMAL
--- NOTE | 2018-11-22 07:00 | NUR ---
RCD PT AT BED PT IS ALERT AND ORIENTED ASSESSMENT DONE PT RESTING ON BED IV PATENT BED LOW AND LOCKED FAMILY AT BED SIDE CALL LIGHT IN REACH
[2018-11-22] MEDS ORDERED: POTASSIUM CHLORIDE 20 MEQ TAB CR PO NR (08:45)
[2018-11-22] MEDS ORDERED: CITALOPRAM HYDROBROMIDE 20 MG TAB PO SCH ×2 (09:00→21:00)
--- NOTE | 2018-11-22 10:26 | NUR ---
A/C TO PTS REQUEST PT TAKING PROTONIX SO PAGED DR RON TO GET THE ORDER TO RENEW THE MEDS
[2018-11-22] MEDS: PANTOPRAZOLE SOD 40 MG TABEC PO SCH ×2 (11:07→17:00)
[2018-11-22 13:50] LABS: WBC,FECAL (FECAL LACTOFERRIN) NEGATIVE (NEGATIVE)
[2018-11-22 14:54] LABS: C DIFFICILE TOXIN A&B AMP PROB NEGATIVE (NEGATIVE)
--- NOTE | 2018-11-22 14:56 | NUR ---
Nutrition Screen Note RD Recommendation for Physician: -Rec GI soft diet as medically feasible -Consider Ensure Compact BID if PO <50% on regular diet Plan of Care: RD following, monitoring for tolerance and adequacy Nutrition reason for involvement: Nutrition Risk Trigger - MST Primary Diagnose(s): 1. Severe nausea and vomiting with dehydration. 2. Mixed anion and non-anion gap metabolic acidosis. 3. Colitis. 4. Anemia of unclear etiology. 5. Depression. PMH: 1. Recurrent nausea and vomiting of unclear etiology. 2. Psychiatric disease requiring high doses of Seroquel and Celexa. Ht: 65in Wt: 184.06lb BMI: 30.6kg/m2 IBW: 125lb RD Assessment: (11/22) Chart reviewed. Labs and meds reviewed. 38yo F, who is admitted for nausea and vomiting x 2 days. K was repleted. Visited pt in the room. Pt reports tolerating full liquid diet well with 100% recorded PO intake. No GI complains noted. LBM 11/21, some loose stool per pt (due to meds and IVF). Pt reports eating less than usual in the past few weeks as pt was hospitalized between 11/14 to 11/18. However, pt denies any recent weight loss. No physical sign of malnutrition with BMI of 30.6kg/m2. Will continue to monitor and follow. Current Diet: Full liquid diet Malnutrition Evaluation (11/22/18) The patient does not meet criteria for a specified degree of malnutrition at this time. Will re-evaluate at follow-up as appropriate. Diet Education Needs Assessment: Diet education not indicated. Nutrition Care Level: low Signed: Heather Smith, MS, RD, LD
--- NOTE | 2018-11-22 18:40 | NUR ---
PATIENT RESTING ON BED BED SIDE REPORT GIVEN TO ONCOMING NURSE
--- NOTE | 2018-11-22 19:32 | NUR ---
Received change of shift report from AM nurse. Walking rounds completed.
[2018-11-22] MEDS ORDERED: QUETIAPINE FUMARATE 100 MG TAB PO SCH (21:00)
[2018-11-22] MEDS: LEVOFLOXACIN 500MG/D5W 100ML IV SCH (21:21)
[2018-11-23] VITALS: BP 111/61
--- NOTE | 2018-11-23 00:07 | NUR ---
Dr Barros on the floor to see patient. Will f/u with new orders.
[2018-11-23] MEDS: HYDROMORPHONE 2MG/ML 2 MG/ML ML IV PRN ×3 (01:52→14:25)
[2018-11-23] MEDS: SOD CHL 0.45%/POT CHL 20MEQ 1,000 ML IV SCH ×2 (02:30→09:45)
[2018-11-23 04:00] VITALS: BP 101/61
[2018-11-23] MEDS: METRONIDAZOLE 500MG/NS 100ML IV SCH ×2 (05:15→11:25)
[2018-11-23] MEDS: METOCLOPRAMIDE HCL 10 MG/2ML VIAL IV SCH ×2 (05:16→11:25)
--- NOTE | 2018-11-23 06:37 | NUR ---
Patient resting quitly at this time. c
[2018-11-23 07:54] VITALS: BP 101/58
[2018-11-23 08:00] VITALS: BP 101/58
[2018-11-23] MEDS: PANTOPRAZOLE SOD 40 MG TABEC PO SCH (08:32)
[2018-11-23] MEDS ORDERED: POTASSIUM CHLORIDE 20 MEQ TAB CR PO SCH (09:00)
[2018-11-23 11:30] VITALS: BP 101/58
[2018-11-23] MEDS ORDERED: LEVAQUIN500 MG PO (14:53)
--- NOTE | 2018-11-23 15:27 | NUR ---
PT WENT HOME IN SAFE CONDITION WITH HER MOTHER
--- NOTE | 2018-11-23 16:57 | Discharge Summary ---
DISCHARGE DIAGNOSES 1. Acute gastroenteritis. 2. Nausea and vomiting leading to dehydration. 3. Hypoproteinemia. 4. Depression with anxiety. DISCHARGE MEDICATIONS: 1. Levaquin 500 mg p.o. q. day for 7 days. 2. Celexa 40 mg p.o. q. day. 3. Diazepam 5 mg p.o. b.i.d. 4. Zofran p.r.n. 5. Protonix 40 mg p.o. b.i.d. 6. Potassium 20 mg p.o. q. day. 7. Propranolol 20 mg p.o. b.i.d. 8. Seroquel 600 mg p.o. nightly. CONSULTING PHYSICIAN: Dr. Barros of gastroenterology. HISTORY OF PRESENT ILLNESS: The patient is a 38-year-old woman. She has a history of intermittent nausea and vomiting. She also had a cholecystectomy about 9 years ago. She now complains of increased vomiting over 1 to 2 days. She also noted some diarrhea. HOSPITAL COURSE: The patient was admitted. Her CT scan showed some colitis consistent with infectious diarrhea and gastroenteritis. She was given hydration along with antiemetics and had some improvement. The patient was seen by GI. She subsequently had stool studies which were normal. She had a low potassium which was repleted. At the time of discharge, she felt much better and was eager to go home. DISPOSITION: Patient will be discharged home. She will follow up with Dr. Cosmo Barros and with her psychiatrist. LANDRY RON MD Job#: [id number]
== END 2018-11-23 15:20 | disposition home or self-care (01) | DRG 392 ==
LOC: ER 17:00 → ERHOLD 21:39 → MED/SURG3 22:58
PROVIDERS: ADMIT Internal Medicine Critical Care Medicine; ATTEND Internal Medicine Critical Care Medicine
DX: K52.9 Noninfective gastroenteritis and colitis, unspecified (principal); E87.2 Acidosis; E86.0 Dehydration; F32.9 Major depressive disorder, single episode, unspecified; F41.9 Anxiety disorder, unspecified; E77.8 Other disorders of glycoprotein metabolism; D64.9 Anemia, unspecified; E87.6 Hypokalemia
CPT/HCPCS: 36415; 74176; 80053; 80307; 81001; 82150; 83605; 83630; 83690; 83735; 84702; 85025; 85610; 85730; 87040; 87086; 87493; 99284; J1200; J1956; J2405; J2765; J7030

== ENCOUNTER 2018-12-04 01:29 | Emergency (ER) | payer SELFPAY ==
[~2018-12-04] VITALS: Ht 165.1 cm; Wt 85.3 kg
[~2018-12-04 01:29] MED LIST changes: +LEVAQUIN500 MG PO
--- OUTSIDE RECORDS SUMMARY | 2018-12-04 01:32 | XMS REPORT | Clinical Summary ---
Author Author MATHEW [facility] Address Unknown Phone Unavailable Care Team Providers Care Compliance Officer Name Role Phone PCP Unavailable Allergies Comments [...] Medication Active vitamin Take 1 tablet 0 w/ofdyteo-uiow-kmmdop by mouth ( PLUS) 27 mg daily. [...] Not on file Results Not on fileafter 12/03/2017 Insurance Payer Benefit Subscriber ID Type Phone Address Plan / Group BLUE CROSS/BLUE SHIELD BCBS ADV xxxxxxxxxxxx [phone] [address] [place] [address] EXCHANGE
[2018-12-04] MEDS ORDERED: SODIUM CHLORIDE 0.9% 1000ML 1,000 ML ONE (03:45)
[2018-12-04] MEDS ORDERED: ONDANSETRON HCL INJ 2 MG/ML VIAL ONE (03:45)
[2018-12-04] MEDS ORDERED: ONDANSETRON HCL INJ 2 MG/ML VIAL IV STA ×2 (04:13→06:51)
[2018-12-04] MEDS ORDERED: SODIUM CHLORIDE 0.9% 1000ML 1,000 ML IV ONE ×3 (04:15→08:15)
[2018-12-04 04:22] LABS: BASOPHILS # (AUTO) 0.1 (0.0-0.1); BASOPHILS % 0.5 % (0.0-1.0); HEMATOCRIT 35.8 % (34.2-44.1); HEMOGLOBIN 11.4 g/dL (12.0-16.0); LYMPHOCYTES # (AUTO) 1.5 (1.0-3.2); MEAN CORPUSCULAR HGB CONC 31.8 g/dL (31-35); MEAN CORPUSCULAR VOLUME 72.3 fL (81-99); MONOCYTES # (AUTO) 0.7 (0.2-0.8); MONOCYTES % 5.2 % (4.4-11.3); NEUTROPHILS # (AUTO) 10.2 (2.1-6.9); NEUTROPHILS % 81.8 % (38.7-80.0); PLATELET COUNT 582 x10e3/uL (140-360); RED BLOOD COUNT 4.95 x10e6/uL (3.6-5.1); RED CELL DISTRIBUTION WIDTH 22.5 % (11.7-14.4)
[2018-12-04 04:33] LABS: CLARITY,URINE HAZY (CLEAR); COLOR,URINE YELLOW (YELLOW); KETONES,URINE 3+ (NEGATIVE); LEUKOCYTE ESTERASE ,URINE NEGATIVE (NEGATIVE); NITRITE,URINE NEGATIVE (NEGATIVE); PROTEIN,URINE DIPSTICK TRACE (NEGATIVE)
[2018-12-04 04:34] LABS: AMPHETAMINES SCREEN,URINE NEGATIVE (NEGATIVE); BILIRUBIN,URINE NEGATIVE (NEGATIVE); PHENCYCLIDINE SCREEN,URINE NEGATIVE (NEGATIVE); URINE UROBILINOGEN 0.2 mg/dL (0.2 - 1)
[2018-12-04 04:35] LABS: BENZODIAZEPINES SCREEN,URINE POSITIVE (NEGATIVE)
[2018-12-04 04:35] LABS: ALANINE AMINOTRANSFERASE 23 IU/L (0-55); ALBUMIN 4.1 g/dL (3.5-5.0); ALKALINE PHOSPHATASE 105 IU/L (40-150); ANION GAP 23.4 mmol/L (8-16); BLOOD UREA NITROGEN 15 mg/dL (7-26); BUN/CREATININE RATIO 19 (6-25); CARBON DIOXIDE 14 mmol/L (22-29); CHLORIDE 105 mmol/L (98-107); CREATININE, SERUM 0.79 mg/dL (0.57-1.11); EST GLOMERULAR FILTRATION RATE > 60 ML/MIN (60-); GLUCOSE 124 mg/dL (74-118); POTASSIUM 3.4 mmol/L (3.5-5.1); SODIUM 139 mmol/L (136-145)
[2018-12-04 04:36] LABS: PREGNANCY TEST, URINE NEGATIVE (NEGATIVE)
[2018-12-04 04:44] LABS: BACTERIA,URINE MODERATE /HPF; EPITHELIAL CELLS,URINE FEW /LPF; MUCUS,URINE MANY (RARE)
[2018-12-04 07:16] LABS: LYMPHOCYTES % (MANUAL) 8 % (19-48); MONOCYTES % (MANUAL) 12 % (3.4-9.0); NEUTROPHILS % (MANUAL) 79 % (40-74)
[2018-12-04 07:17] LABS: HYPOCHROMASIA SLIGHT; PLATELET ESTIMATE MODERATELY INCREASED; PLATELET MORPHOLOGY COMMENT NORMAL; RBC MORPHOLOGY COMMENT NORMAL
[2018-12-04 07:18] LABS: ANISOCYTOSIS SLIGHT
[2018-12-04] MEDS ORDERED: FAMOTIDINE 20 MG/2 ML VIAL IV STA (08:07)
[2018-12-04] MEDS ORDERED: DICYCLOMINE HCL 20 MG/2 ML VIAL IM ONE (08:15)
[2018-12-04] MEDS ORDERED: SODIUM CHLORIDE 0.9% 1000ML 1,000 ML IV SCH (08:15)
[2018-12-04 09:10] LABS: ANION GAP 18.3 mmol/L (8-16); BLOOD UREA NITROGEN 9 mg/dL (7-26); BUN/CREATININE RATIO 13 (6-25); CALCIUM 9.1 mg/dL (8.4-10.2); CARBON DIOXIDE 17 mmol/L (22-29); CHLORIDE 107 mmol/L (98-107); EST GLOMERULAR FILTRATION RATE > 60 ML/MIN (60-); GLUCOSE 116 mg/dL (74-118); POTASSIUM 3.3 mmol/L (3.5-5.1); SODIUM 139 mmol/L (136-145)
[2018-12-04] MEDS ORDERED: POTASSIUM CHLORIDE 20 MEQ TAB CR PO NR (09:45)
[2018-12-04 11:50] VITALS: BP 158/101
== END 2018-12-04 11:54 | disposition home or self-care (01) ==
LOC: ER 01:29
DX: R10.84 Generalized abdominal pain (principal); R11.2 Nausea with vomiting, unspecified; E86.0 Dehydration; F12.188 Cannabis abuse with other cannabis-induced disorder
CPT/HCPCS: 36415; 80048; 80053; 80307; 81001; 81025; 85025; 99283; J0500; J2405; J7030

== ENCOUNTER 2018-12-06 17:05 | Observation (INO) | payer SELFPAY ==
[~2018-12-06] VITALS: Ht 165.1 cm; Wt 85.3 kg
--- OUTSIDE RECORDS SUMMARY | 2018-12-06 17:08 | XMS REPORT | Clinical Summary ---
Author Author MATHEW [facility] Address Unknown Phone Unavailable Care Team Providers Care Ocean Freight Forwarder Name Role Phone PCP Unavailable Allergies Comments [...] Medication Active vitamin Take 1 tablet 0 w/jyeqinm-waed-dhqtfq by mouth ( PLUS) 27 mg daily. [...] Not on file Results Not on fileafter 12/05/2017 Insurance Payer Benefit Subscriber ID Type Phone Address Plan / Group BLUE CROSS/BLUE SHIELD BCBS ADV xxxxxxxxxxxx [phone] [address] [place] [address] EXCHANGE
[2018-12-06] MEDS ORDERED: ONDANSETRON HCL 4 MG ORAL DISINTEGRATING TAB PO ONE (17:45)
[2018-12-06 19:21] LABS: AMPHETAMINES SCREEN,URINE NEGATIVE (NEGATIVE); CLARITY,URINE SL CLOUDY (CLEAR); COLOR,URINE YELLOW (YELLOW); KETONES,URINE 1+ (NEGATIVE); LEUKOCYTE ESTERASE ,URINE NEGATIVE (NEGATIVE); NITRITE,URINE NEGATIVE (NEGATIVE); PHENCYCLIDINE SCREEN,URINE NEGATIVE (NEGATIVE); PROTEIN,URINE DIPSTICK TRACE (NEGATIVE)
[2018-12-06 19:22] LABS: BENZODIAZEPINES SCREEN,URINE POSITIVE (NEGATIVE); BILIRUBIN,URINE 1+ (NEGATIVE); URINE UROBILINOGEN 0.2 mg/dL (0.2 - 1)
[2018-12-06 19:25] LABS: BASOPHILS % 0.5 % (0.0-1.0); EOSINOPHILS % 0.1 % (0.0-6.0); HEMATOCRIT 36.1 % (34.2-44.1); HEMOGLOBIN 11.6 g/dL (12.0-16.0); LYMPHOCYTES # (AUTO) 1.5 (1.0-3.2); LYMPHOCYTES % 17.5 % (18.0-39.1); MEAN CORPUSCULAR HEMOGLOBIN 23.5 pg (28-32); MEAN CORPUSCULAR HGB CONC 32.1 g/dL (31-35); MEAN CORPUSCULAR VOLUME 73.2 fL (81-99); MONOCYTES # (AUTO) 0.5 (0.2-0.8); MONOCYTES % 5.3 % (4.4-11.3); NEUTROPHILS # (AUTO) 6.6 (2.1-6.9); NEUTROPHILS % 76.4 % (38.7-80.0); PLATELET COUNT 566 x10e3/uL (140-360); RED BLOOD COUNT 4.93 x10e6/uL (3.6-5.1); RED CELL DISTRIBUTION WIDTH 22.5 % (11.7-14.4)
[2018-12-06 19:31] LABS: AMORPHOUS SEDIMENT,URINE FEW (FEW); BACTERIA,URINE MANY /HPF; EPITHELIAL CELLS,URINE MANY /LPF; MUCUS,URINE FEW (RARE); RBC,URINE 0-5 /HPF (0-5); TRANSITIONAL EPI CELLS,URINE MODERATE
[2018-12-06 19:47] LABS: ALANINE AMINOTRANSFERASE 24 IU/L (0-55); ALBUMIN/GLOBULIN RATIO 1.2 (0.8-2.0); ALKALINE PHOSPHATASE 91 IU/L (40-150); ANION GAP 20.7 mmol/L (8-16); BLOOD UREA NITROGEN 9 mg/dL (7-26); BUN/CREATININE RATIO 11 (6-25); CALCIUM 9.6 mg/dL (8.4-10.2); CARBON DIOXIDE 17 mmol/L (22-29); CHLORIDE 101 mmol/L (98-107); CREATININE, SERUM 0.81 mg/dL (0.57-1.11); EST GLOMERULAR FILTRATION RATE > 60 ML/MIN (60-); GLUCOSE 110 mg/dL (74-118); LIPASE 8 U/L (8-78); SODIUM 136 mmol/L (136-145)
[2018-12-06 19:54] LABS: POTASSIUM 2.7 mmol/L (3.5-5.1)
[2018-12-06] MEDS ORDERED: POTASSIUM CHLORIDE 20MEQ/100ML 100 ML IV STA (21:01)
--- OUTSIDE RECORDS SUMMARY | 2018-12-06 21:19 | XMS REPORT | Clinical Summary ---
Author Author MATHEW [facility] Address Unknown Phone Unavailable Care Team Providers Care Retail Shift Supervisor Name Role Phone PCP Unavailable Allergies Comments [...] Medication Active vitamin Take 1 tablet 0 w/gzxfnfe-czoh-wdlhdt by mouth ( PLUS) 27 mg daily. [...] Group BLUE CROSS/BLUE SHIELD BCBS ADV xxxxxxxxxxxx [phone] [address] [place] [address] EXCHANGE
[2018-12-06] MEDS: ONDANSETRON HCL INJ 2 MG/ML VIAL IV PRN (21:36)
[2018-12-06] MEDS: KCL 20MEQ/.9 SOD CHL 1,000 ML IV SCH (21:36)
[2018-12-06] MEDS ORDERED: ACETAMINOPHEN 325 MG TAB PO ONE (21:45)
[2018-12-06] MEDS: METOCLOPRAMIDE HCL 10 MG/2ML VIAL IV SCH (23:16)
[2018-12-07] MEDS ORDERED: DICYCLOMINE HCL 20 MG/2 ML VIAL IM ONE (02:15)
[2018-12-07] MEDS: ONDANSETRON HCL INJ 2 MG/ML VIAL IV PRN (04:08)
[2018-12-07 05:10] LABS: BASOPHILS % 0.4 % (0.0-1.0); EOSINOPHILS % 0.1 % (0.0-6.0); HEMATOCRIT 32.9 % (34.2-44.1); HEMOGLOBIN 10.6 g/dL (12.0-16.0); LYMPHOCYTES # (AUTO) 2.7 (1.0-3.2); LYMPHOCYTES % 32.3 % (18.0-39.1); MEAN CORPUSCULAR HEMOGLOBIN 23.5 pg (28-32); MEAN CORPUSCULAR HGB CONC 32.2 g/dL (31-35); MEAN CORPUSCULAR VOLUME 72.9 fL (81-99); MONOCYTES # (AUTO) 1.1 (0.2-0.8); MONOCYTES % 13.2 % (4.4-11.3); NEUTROPHILS # (AUTO) 4.5 (2.1-6.9); NEUTROPHILS % 53.8 % (38.7-80.0); PLATELET COUNT 487 x10e3/uL (140-360); RED BLOOD COUNT 4.51 x10e6/uL (3.6-5.1); RED CELL DISTRIBUTION WIDTH 22.5 % (11.7-14.4)
--- NOTE | 2018-12-07 05:12 | NUR ---
md hopkins notified of coffee ground emesis, he contacted [facility]. npo and start on protonix drip
[2018-12-07 05:32] LABS: ALANINE AMINOTRANSFERASE 25 IU/L (0-55); ALBUMIN 3.6 g/dL (3.5-5.0); ALBUMIN/GLOBULIN RATIO 1.2 (0.8-2.0); ALKALINE PHOSPHATASE 80 IU/L (40-150); ANION GAP 16.7 mmol/L (8-16); BLOOD UREA NITROGEN 9 mg/dL (7-26); BUN/CREATININE RATIO 12 (6-25); CALCIUM 8.5 mg/dL (8.4-10.2); CARBON DIOXIDE 20 mmol/L (22-29); CHLORIDE 105 mmol/L (98-107); CREATININE, SERUM 0.74 mg/dL (0.57-1.11); EST GLOMERULAR FILTRATION RATE > 60 ML/MIN (60-); GLUCOSE 100 mg/dL (74-118); SODIUM 139 mmol/L (136-145)
[2018-12-07 05:33] LABS: POTASSIUM 2.7 mmol/L (3.5-5.1)
[2018-12-07] MEDS ORDERED: POTASSIUM CHLORIDE 20MEQ/100ML 100 ML IV STA (05:34)
[2018-12-07] MEDS ORDERED: SODIUM CHLORIDE 0.9% 50ML 50 ML ONE (05:35)
[2018-12-07] MEDS: PANTOPRAZOLE INJ 40 MG in SODIUM CHLORIDE 0.9% 50ML 50 ML IV SCH ×4 (05:36→20:41)
[2018-12-07] MEDS: KCL 20MEQ/.9 SOD CHL 1,000 ML IV SCH ×2 (06:03→15:45)
[2018-12-07] MEDS: METOCLOPRAMIDE HCL 10 MG/2ML VIAL IV SCH ×3 (06:03→17:39)
--- NOTE | 2018-12-07 06:15 | NUR ---
dr hopkins informed of no voiding, creatinine and bun within limits, bladder is not distended, patient not displaying signs of dehydration.
--- NOTE | 2018-12-07 06:33 | NUR ---
patient voided, described urine as clear and yellow
[2018-12-07 06:38] LABS: ANISOCYTOSIS MODERATE; HOWELL-JOLLY BODIES FEW; HYPOCHROMASIA MODE; RBC MORPHOLOGY COMMENT ABNORMAL
[2018-12-07 06:39] LABS: PLATELET ESTIMATE SLIGHTLY INCREASED; PLATELET MORPHOLOGY COMMENT NORMAL
--- NOTE | 2018-12-07 07:15 | NUR ---
ASSUMED CARE AT THIS TIME. PATIENT LAYING IN BED WITH EYES CLOSED, EASILY ARROUSABLE TO VERBAL STIMULI. SKIN WARM AND DRY. RESP EVEN AND UNLABORED. NO SIGNS OF ACUTE DISTRESS NOTED AT THIS TIME. FAMILY AT BEDSIDE.
--- NOTE | 2018-12-07 07:15 | NUR ---
WALKING ROUNDS WITH LAMONT ROMERO. REPORT GIVEN IN FULL
--- NOTE | 2018-12-07 08:15 | NUR ---
DR MAHONEY AT BEDSIDE FOR PATIENT EVAL AND DISCUSSING THE CURRENT PLAN OF CARE, VERBALIZED UNDERSANDING. NO SIGNS OF ACUTE DISTRESS NOTED AT THIS TIME.
[2018-12-07] MEDS ORDERED: PROPRANOLOL HCL 10 MG TAB PO PRN (08:30)
[2018-12-07] MEDS ORDERED: POTASSIUM CHLORIDE 20MEQ/100ML 200 ML IV ONE (08:45)
[2018-12-07] MEDS: CITALOPRAM HYDROBROMIDE 20 MG TAB PO SCH (08:53)
[2018-12-07] MEDS ORDERED: PANTOPRAZOLE 40 MG 10ML VIAL IV SCH (09:00)
[2018-12-07] MEDS: ACETAMINOPHEN 325 MG TAB PO PRN ×2 (09:12→17:52)
--- NOTE | 2018-12-07 09:49 | History and Physical ---
DATE OF SERVICE: December 07, 2018 CHIEF COMPLAINT: Nausea, vomiting. HPI: This is a 38-year-old female with multiple psychiatric disorders, has a history of smoking marijuana, who comes in with underlying nausea, vomiting. Patient has been admitted several times due to cannabinoid hyperemesis syndrome. She now reports similar symptoms, has been discharged several times with similar findings. Today, she reports having some coffee-ground emesis of small amounts, and currently on Protonix drip. GI has been consulted. Her hemoglobin is stable. REVIEW OF SYSTEMS: Pertinent positive: Nausea, vomiting, abdominal pain. Pertinent negative: Denies any chest pain, palpitation, dysuria, hematuria, frequency, urgency, lightheadedness, dizziness, headache, shortness of breath, cough, congestion, fever, or any other complaints. The rest of the 14-point review of systems have been reviewed with the patient and are negative. ALLERGIES: MORPHINE. HOME MEDICATIONS: Please see med reconciliation form. PAST MEDICAL HISTORY: She has cannabinoid hyperemesis syndrome, multiple psychiatric disorders, chronic marijuana usage. SURGICAL HISTORY: Has cholecystectomy in the past. FAMILY HISTORY: Hypertension and diabetes. SOCIAL HISTORY: She smokes marijuana consistently on a daily basis. PHYSICAL EXAMINATION: VITAL SIGNS: Temperature is 98.9, pulse is 83, respiratory rate is 15, blood pressure 123/71, pulse ox 98% on room air. GENERAL: Not in acute distress, alert and oriented x3, cooperative on examination. HEENT: Head: Normocephalic, atraumatic. Eyes: Pupils equal, round, and reactive to light bilaterally. Extraocular movements intact bilaterally. Throat: No evidence of any erythema or exudates in the posterior pharynx. Has poor dentition. NECK: Supple with good range of motion. PULMONARY: Clear to auscultation bilaterally. No wheezing, no rales, no rhonchi, no crackles appreciated. CARDIOVASCULAR: Positive S1 and S2. No murmurs, rubs, or gallops appreciated. ABDOMEN: Soft, nondistended, nontender to palpation. Bowel sounds present. MUSCULOSKELETAL: Strength is 5/5 throughout. No evidence of any musculoskeletal deficit on examination. No weakness appreciated. SKIN: Intact. Warm to touch. Good cap refill. PSYCHIATRIC: Normal affect and mood. EXTREMITIES: No edema. Good range of motion throughout. LAB FINDINGS: Show white count 8.4, hemoglobin 10.6, hematocrit is 33, platelets are 487,000. Chemistry: Sodium is 139, potassium 3.7, chloride 105, bicarb 20, anion gap of 16, BUN is 9, creatinine is 0.7, glucose is 100, calcium 8.5. LFTs were normal. Lipase is 8. Urinalysis concerning for underlying UTI, but has squamous cell epithelium on the UA, likely contaminant. Urine drug screen: Benzodiazepine is positive, cannabinoid is positive. IMAGING: None. IMPRESSION: 1. Cannabinoid hyperemesis syndrome. 2. Coffee-ground emesis. 3. Chronic drug abuse. 4. Multiple psychiatric disorders. PLAN: At this time, GI consulted. Protonix drip. Resume same home medications. No pain medication at this time. Replace potassium with additional 40 mEq of potassium IV x1. She was given potassium last night as well. Continue with IV fluids with potassium. Will monitor closely. Job#: [id number]
--- NOTE | 2018-12-07 10:12 | NUR ---
PATIENT AWAKE AND ALERT LAYING IN BED. RESP EVEN AND UNLABORED. SKIN WARM AND DRY. NO SIGNS OF ACUTE DISTRESS NOTED AT THIS TIME. FAMILY AT BEDSIDE. DENIES ANY C/O AT THIS TIME.
--- NOTE | 2018-12-07 13:20 | NUR ---
PATIENT LAYING IN BED WITH EYES CLOSED. RESP EVEN AND UNLABORED. SKIN WARM AND DRY. NO SIGNS OF ACUTE DISTRESS NOTED AT THIS TIME. FAMILY AT BEDSIDE.
--- NOTE | 2018-12-07 14:28 | NUR ---
VERBAL REPORT GIVEN TO HEATHER PERRY,
--- NOTE | 2018-12-07 14:30 | NUR ---
RECEIVED ENDORSEMENT AND BEDSDE REPORT FROM LUISITO ROMERO. PT A&O GCS 15, PINK WARM DRY, SMILING UNDERSTANDS PLAN OF CONTINUING CARE; FAMILY AT BEDSIDE.
--- NOTE | 2018-12-07 14:45 | NUR ---
LAB HERE TO DRAW REPEAT POTASSIUM
[2018-12-07 16:30] VITALS: BP 117/59
[2018-12-07 17:17] VITALS: BP 117/59
[2018-12-07 17:27] VITALS: BP 117/59
--- NOTE | 2018-12-07 17:28 | NUR ---
patient received to OBS unit shay lopez. see admit assess. family at BS. vitals stable with no distress. no nausea at this time.
--- NOTE | 2018-12-07 19:18 | NUR ---
Patient received sitting in bed. AAO x 3. Patient had no complaints of pain or nausea. No respiratory distress noted. Patient instructed to call for assistance when needed. Call light within reach.
[2018-12-07 20:00] VITALS: BP 124/78
[2018-12-07 20:30] VITALS: BP 124/78
[2018-12-07] MEDS ORDERED: PANTOPRAZOLE 40 MG 10ML VIAL ONE (20:37)
[2018-12-07] MEDS: QUETIAPINE FUMARATE 100 MG TAB PO SCH ×2 (20:41→20:54)
[2018-12-07] MEDS ORDERED: QUETIAPINE FUMARATE 25 MG TAB PO SCH (21:00)
[2018-12-08] MEDS: METOCLOPRAMIDE HCL 10 MG/2ML VIAL IV SCH ×3 (00:01→12:05)
[2018-12-08 00:11] VITALS: BP 112/62
--- NOTE | 2018-12-08 00:30 | NUR ---
Dr. Zack Barros here to see patient. Diet advanced from "NPO" to "Clear Liquid diet".
[2018-12-08] MEDS ORDERED: PANTOPRAZOLE 40 MG 10ML VIAL ONE ×2 (01:31→05:21)
[2018-12-08] MEDS: PANTOPRAZOLE INJ 40 MG in SODIUM CHLORIDE 0.9% 50ML 50 ML IV SCH ×3 (01:49→12:00)
[2018-12-08 04:00] VITALS: BP 106/62
[2018-12-08] MEDS: KCL 20MEQ/.9 SOD CHL 1,000 ML IV SCH ×2 (05:15)
[2018-12-08 05:25] LABS: BASOPHILS # (AUTO) 0.1 (0.0-0.1); BASOPHILS % 0.8 % (0.0-1.0); EOSINOPHILS # (AUTO) 0.2 (0.0-0.4); EOSINOPHILS % 2.6 % (0.0-6.0); HEMATOCRIT 27.7 % (34.2-44.1); HEMOGLOBIN 8.6 g/dL (12.0-16.0); LYMPHOCYTES # (AUTO) 3.4 (1.0-3.2); LYMPHOCYTES % 55.7 % (18.0-39.1); MEAN CORPUSCULAR HEMOGLOBIN 23.8 pg (28-32); MEAN CORPUSCULAR VOLUME 76.7 fL (81-99); MONOCYTES # (AUTO) 0.7 (0.2-0.8); MONOCYTES % 11.1 % (4.4-11.3); NEUTROPHILS # (AUTO) 1.8 (2.1-6.9); NEUTROPHILS % 29.8 % (38.7-80.0); PLATELET COUNT 373 x10e3/uL (140-360); RED BLOOD COUNT 3.61 x10e6/uL (3.6-5.1); RED CELL DISTRIBUTION WIDTH 23.4 % (11.7-14.4)
[2018-12-08 05:41] LABS: ANION GAP 14.4 mmol/L (8-16); BLOOD UREA NITROGEN 6 mg/dL (7-26); BUN/CREATININE RATIO 9 (6-25); CARBON DIOXIDE 18 mmol/L (22-29); CHLORIDE 111 mmol/L (98-107); CREATININE, SERUM 0.66 mg/dL (0.57-1.11); EST GLOMERULAR FILTRATION RATE > 60 ML/MIN (60-); GLUCOSE 72 mg/dL (74-118); POTASSIUM 3.4 mmol/L (3.5-5.1); SODIUM 140 mmol/L (136-145)
[2018-12-08] MEDS: SUCRALFATE 1 GM TAB PO SCH ×2 (07:57→12:05)
[2018-12-08 08:00] VITALS: BP 128/75
[2018-12-08] MEDS: CITALOPRAM HYDROBROMIDE 20 MG TAB PO SCH (08:43)
[2018-12-08] MEDS: ACETAMINOPHEN 325 MG TAB PO PRN (08:43)
[2018-12-08] MEDS ORDERED: DIPHENOXYLATE/ATROPINE TAB PO PRN (11:30)
[2018-12-08] MEDS ORDERED: DIPHENOXYLATE/ATROPINE TAB PO ONE (11:30)
[2018-12-08 12:20] VITALS: BP 132/78
--- NOTE | 2018-12-08 23:24 | Discharge Summary ---
FINAL DISCHARGE DIAGNOSES 1. Cannabinoid hyperemesis syndrome. 2. Coffee-ground emesis found to be normal. Hemoglobin was stable. 3. Chronic drug abuse. 4. Multiple psychiatric disorders. CONSULTANTS: GI. VITAL SIGNS: Temperature is 98, pulse 87, respiratory rate 18, blood pressure 128/75, pulse oximetry 99% on room air. LAB FINDINGS: Show white count 6.1, hemoglobin is 8.6, hematocrit 27 and platelets of 373. Chemistry; sodium 140, potassium 3.4, chloride 111, bicarb 18, anion gap of 14, BUN 6, creatinine is 0.66, calcium is 8. Glucose is 72. Rest of LFTs was normal. Lipase normal at 8. Urinalysis was found to be negative. Drug screening positive for benzos and cannabinoids. MICROBIOLOGY: None. IMAGING STUDIES: None were performed. PHYSICAL EXAMINATION GENERAL: Alert and oriented x3, cooperative on examination. HEENT: Head is normocephalic, atraumatic. Eyes; pupils are equal, round, and reactive to light bilaterally. Extraocular movements are intact bilaterally. Throat with no evidence of any erythema or exudates in the posterior pharynx. Has poor dentition. NECK: Supple. Good range of motion. PULMONARY: Clear to auscultation bilaterally. No wheezing. No rales. No rhonchi. No crackles appreciated. CARDIOVASCULAR: Positive S1, S2. No murmurs, rubs, or gallops appreciated. ABDOMEN: Soft, nondistended, and nontender to palpation. Bowel sounds present. MUSCULOSKELETAL: Strength is 5/5 throughout. No evidence of any muscle deficit on examination. No weakness appreciated. NEUROLOGICAL: Cranial nerves II-XII are grossly intact. No evidence of any neurological deficits on exam. SKIN: Intact. Warm to touch. Good cap refill. PSYCHIATRIC: Normal affect and mood. EXTREMITIES: No edema. Good range of motion throughout. HOSPITAL COURSE: This is a 38-year-old female, who came in with underlying nausea and vomiting with history of cannabinoid hyperemesis syndrome. She has been in an out of the hospital on several occasions with similar findings. She reports having some coffee-ground emesis. Hemoglobin maintained stable while here in the hospital. GI was consulted. Recommended Protonix and Carafate. Patient was cleared by GI for discharge to home. Patient tolerated the diet well and was discharged per GI recommendations. Vital signs are stable, labs remained stable. The patient was seen, evaluated, and examined thoroughly on the day of discharge with no other complaints. Patient verbalized understanding and agrees with plan of care to follow up accordingly as an outpatient with the primary care physician and GI physician in 1 to 3 weeks. Patient was tolerating diet well prior to being discharged home. MEDICATIONS: See med reconciliation form. DISPOSITION: Home. CONDITION: Stable. DIET: Heart-healthy. In the event of any worsening symptoms, patient was advised to come back to the ED for further evaluation. Discharge summary took greater than 35 minutes. Job#: [id number] MAGUI
== END 2018-12-08 14:37 | disposition home or self-care (01) ==
LOC: ER 17:05 → ERHOLD 21:15 → IMCU 12-07 16:32
PROVIDERS: ADMIT Internal Medicine; ATTEND Internal Medicine
DX: T40.7X1A Poisoning by cannabis (derivatives), accidental (unintentional), initial encounter (principal); R11.2 Nausea with vomiting, unspecified; R19.7 Diarrhea, unspecified; E87.6 Hypokalemia; F12.10 Cannabis abuse, uncomplicated; Z83.3 Family history of diabetes mellitus; Z82.49 Family history of ischemic heart disease and other diseases of the circulatory system; D64.9 Anemia, unspecified; Z88.5 Allergy status to narcotic agent; Z88.8 Allergy status to other drugs, medicaments and biological substances; Z91.048 Other nonmedicinal substance allergy status; F28 Other psychotic disorder not due to a substance or known physiological condition
CPT/HCPCS: 36415 ×3; 80048; 80053 ×2; 80307; 81001; 83690; 84132; 85025 ×3; 99284; G0378 ×3; J0500; J2405 ×3; J2765 ×3; J3480 ×2

== ENCOUNTER 2018-12-09 21:14 | Inpatient (IN) | payer SELFPAY ==
[~2018-12-09] VITALS: Ht 165.1 cm; Wt 55.9 kg
--- OUTSIDE RECORDS SUMMARY | 2018-12-09 21:18 | XMS REPORT | Clinical Summary ---
Author Author MATHEW [facility] Address Unknown Phone Unavailable Care Team Providers Care Support Analyst Name Role Phone PCP Unavailable Allergies Comments [...] Medication Active vitamin Take 1 tablet 0 w/svkuews-betc-cdmeaa by mouth ( PLUS) 27 mg daily. [...] Not on file Results Not on fileafter 12/08/2017 Insurance Payer Benefit Subscriber ID Type Phone Address Plan / Group BLUE CROSS/BLUE SHIELD BCBS ADV xxxxxxxxxxxx [phone] [address] [place] [address] EXCHANGE
[2018-12-09] MEDS ORDERED: ONDANSETRON HCL INJ 2 MG/ML VIAL IV STA (22:07)
[2018-12-09] MEDS ORDERED: METOCLOPRAMIDE HCL 10 MG/2ML VIAL IV ONE (22:15)
[2018-12-09] MEDS ORDERED: SODIUM CHLORIDE 0.9% 1000ML 1,000 ML IV ONE (22:15)
[2018-12-09] MEDS ORDERED: PANTOPRAZOLE SOD 40 MG TABEC PO ONE (22:15)
[2018-12-09] MEDS ORDERED: PANTOPRAZOLE 40 MG 10ML VIAL ONE (22:17)
[2018-12-09 22:38] LABS: BASOPHILS % 0.3 % (0.0-1.0); EOSINOPHILS % 0.2 % (0.0-6.0); HEMATOCRIT 36.8 % (34.2-44.1); HEMOGLOBIN 11.9 g/dL (12.0-16.0); LYMPHOCYTES # (AUTO) 1.2 (1.0-3.2); LYMPHOCYTES % 10.2 % (18.0-39.1); MEAN CORPUSCULAR HEMOGLOBIN 23.8 pg (28-32); MEAN CORPUSCULAR HGB CONC 32.3 g/dL (31-35); MEAN CORPUSCULAR VOLUME 73.6 fL (81-99); MONOCYTES # (AUTO) 0.6 (0.2-0.8); MONOCYTES % 5.1 % (4.4-11.3); NEUTROPHILS # (AUTO) 9.8 (2.1-6.9); NEUTROPHILS % 83.9 % (38.7-80.0); PLATELET COUNT 532 x10e3/uL (140-360); RED CELL DISTRIBUTION WIDTH 23.3 % (11.7-14.4)
[2018-12-09 22:42] LABS: CLARITY,URINE CLEAR (CLEAR); COLOR,URINE YELLOW (YELLOW); LEUKOCYTE ESTERASE ,URINE TRACE (NEGATIVE); NITRITE,URINE NEGATIVE (NEGATIVE); PROTEIN,URINE DIPSTICK 2+ (NEGATIVE)
[2018-12-09 22:43] LABS: AMPHETAMINES SCREEN,URINE NEGATIVE (NEGATIVE); BENZODIAZEPINES SCREEN,URINE POSITIVE (NEGATIVE); BILIRUBIN,URINE 1+ (NEGATIVE); KETONES,URINE 2+ (NEGATIVE); PHENCYCLIDINE SCREEN,URINE NEGATIVE (NEGATIVE); PREGNANCY TEST, URINE NEGATIVE (NEGATIVE); URINE UROBILINOGEN 0.2 mg/dL (0.2 - 1)
[2018-12-09 22:46] LABS: BACTERIA,URINE MODERATE /HPF; EPITHELIAL CELLS,URINE MANY /LPF; MUCUS,URINE MODERATE (RARE); RBC,URINE 0-5 /HPF (0-5)
[2018-12-09 22:57] LABS: ALANINE AMINOTRANSFERASE 23 IU/L (0-55); ALBUMIN 4.1 g/dL (3.5-5.0); ALBUMIN/GLOBULIN RATIO 1.3 (0.8-2.0); ALKALINE PHOSPHATASE 93 IU/L (40-150); AMYLASE 48 U/L (25-125); ANION GAP 23.8 mmol/L (8-16); BLOOD UREA NITROGEN 6 mg/dL (7-26); BUN/CREATININE RATIO 7 (6-25); CALCIUM 9.8 mg/dL (8.4-10.2); CARBON DIOXIDE 18 mmol/L (22-29); CHLORIDE 101 mmol/L (98-107); CREATININE, SERUM 0.82 mg/dL (0.57-1.11); EST GLOMERULAR FILTRATION RATE > 60 ML/MIN (60-); GLUCOSE 134 mg/dL (74-118); LIPASE 11 U/L (8-78); SODIUM 140 mmol/L (136-145)
[2018-12-09 23:07] LABS: POTASSIUM 2.8 mmol/L (3.5-5.1)
[2018-12-09] MEDS ORDERED: KCL 20MEQ/.9 SOD CHL 1,000 ML IV SCH (23:15)
[2018-12-09] MEDS ORDERED: ONDANSETRON HCL INJ 2 MG/ML VIAL IV PRN (23:15)
[2018-12-09] MEDS ORDERED: POTASSIUM CHLORIDE 20MEQ/100ML 100 ML IV STA (23:15)
--- OUTSIDE RECORDS SUMMARY | 2018-12-09 23:29 | XMS REPORT | Clinical Summary ---
Author Author MATHEW [facility] Address Unknown Phone Unavailable Care Team Providers Care Scientific Illustrator Name Role Phone PCP Unavailable Allergies Comments [...] Medication Active vitamin Take 1 tablet 0 w/gobkzbv-jqvs-yminpd by mouth ( PLUS) 27 mg daily. [...] Group [employer]UE [employer]OSS/[employer] BCBS ADV xxxxxxxxxxxx [phone] [id number] [place] [address] EXCHANGE
[2018-12-10] MEDS: METOCLOPRAMIDE HCL 10 MG/2ML VIAL IV SCH ×4 (00:04→17:02)
[2018-12-10] MEDS ORDERED: PANTOPRAZOLE 40 MG 10ML VIAL ONE (00:09)
[2018-12-10] MEDS ORDERED: POTASSIUM CHLORIDE 20MEQ/100ML 100 ML IV STA (02:13)
--- NOTE | 2018-12-10 02:43 | NUR ---
PER PT REQUEST, ICE CHIPS GIVEN
--- NOTE | 2018-12-10 05:00 | NUR ---
PT HYPERVENTILATING, CARPAL SPASMS NOTED, PLACED ON ETCO2 MONITOR, MEASURING 15, PLACED ON NRB MASK W/O O2 AND 2L NC, SPO2 100%.
--- NOTE | 2018-12-10 05:15 | NUR ---
ETCO2 15-17. CONT TO CO CARPAL SPASMS.
--- NOTE | 2018-12-10 05:30 | NUR ---
ETCO2 16-18. CONT TO COMPLAIN OF SPASMS. MD AWARE.
--- NOTE | 2018-12-10 05:45 | NUR ---
AMBULATORY TO RESTROOM, BACK IN TX ROOM, 2L NC, ETCO2 21-22. AWAKE ALERT SKIN W/D RESP NONLAB. NAD NOTED.
--- NOTE | 2018-12-10 06:10 | NUR ---
ETCO2 23, AWAKE ALERT SKIN W/D RESP NONLAB. NAD NOTED. STATES FEELS BETTER
[2018-12-10 06:31] LABS: BASOPHILS % 0.1 % (0.0-1.0); HEMATOCRIT 34.7 % (34.2-44.1); HEMOGLOBIN 11.3 g/dL (12.0-16.0); LYMPHOCYTES # (AUTO) 1.6 (1.0-3.2); LYMPHOCYTES % 13.6 % (18.0-39.1); MEAN CORPUSCULAR HGB CONC 32.6 g/dL (31-35); MEAN CORPUSCULAR VOLUME 73.8 fL (81-99); MONOCYTES # (AUTO) 0.9 (0.2-0.8); MONOCYTES % 7.8 % (4.4-11.3); NEUTROPHILS # (AUTO) 9.2 (2.1-6.9); NEUTROPHILS % 77.8 % (38.7-80.0); PLATELET COUNT 521 x10e3/uL (140-360); RED CELL DISTRIBUTION WIDTH 23.4 % (11.7-14.4)
[2018-12-10 06:50] LABS: ALANINE AMINOTRANSFERASE 21 IU/L (0-55); ALBUMIN 3.9 g/dL (3.5-5.0); ALBUMIN/GLOBULIN RATIO 1.3 (0.8-2.0); ALKALINE PHOSPHATASE 87 IU/L (40-150); ANION GAP 19.1 mmol/L (8-16); BLOOD UREA NITROGEN < 5 mg/dL (7-26); CALCIUM 8.8 mg/dL (8.4-10.2); CARBON DIOXIDE 18 mmol/L (22-29); CHLORIDE 104 mmol/L (98-107); CREATININE, SERUM 0.75 mg/dL (0.57-1.11); EST GLOMERULAR FILTRATION RATE > 60 ML/MIN (60-); GLUCOSE 121 mg/dL (74-118); POTASSIUM 3.1 mmol/L (3.5-5.1); SODIUM 138 mmol/L (136-145)
[2018-12-10 06:53] LABS: BUN/CREATININE RATIO 7 (6-25)
--- NOTE | 2018-12-10 06:58 | NUR ---
REPORT TO DAY SHIFT NURSE
--- NOTE | 2018-12-10 07:53 | NUR ---
recvd pt, alert and oriented. c/o mild discomfort, states had liquid bm at shift change and continues to have nausea. report called to Vilma ROMERO for transfer, ed on current vs and pt status.
[2018-12-10] MEDS ORDERED: DIAZEPAM 5 MG TAB PO PRN (08:00)
[2018-12-10] MEDS ORDERED: PROPRANOLOL HCL 10 MG TAB PO PRN (08:00)
--- NOTE | 2018-12-10 08:02 | NUR ---
made aware of bp, new order for iv lopressor Addendum: 12/10/18 at 0810 by [email or web address] inderol
[2018-12-10] MEDS ORDERED: DIAZEPAM 2 MG TAB PO PRN (08:15)
[2018-12-10] MEDS ORDERED: METOPROLOL TARTRATE INJ 1 MG/ML VIAL IV ONE (08:15)
[2018-12-10] MEDS ORDERED: POTASSIUM CHLORIDE 20 MEQ TAB CR PO NR (08:30)
[2018-12-10] MEDS ORDERED: HYDROMORPHONE 1MG/1ML INJ IV PRN (08:30)
--- NOTE | 2018-12-10 08:35 | NUR ---
pt HR and BP addressed with rx and stable, 160/93 88. updated recv nurse, transferring to floor
--- NOTE | 2018-12-10 08:41 | NUR ---
report received from ER, patient arrived on unit via stretcher. Patient in stable condition, alert and oriented. Call coello within reach and bed in lowest position.
[2018-12-10] MEDS ORDERED: HYDROMORPHONE 2MG/ML 2 MG/ML ML IV PRN (08:45)
[2018-12-10] MEDS: HYDROMORPHONE 2MG/ML 2 MG/ML ML IV PRN ×2 (08:51→12:50)
[2018-12-10] MEDS: CITALOPRAM HYDROBROMIDE 20 MG TAB PO SCH (08:51)
[2018-12-10] MEDS: PANTOPRAZOLE 40 MG 10ML VIAL IV SCH ×2 (08:51→17:02)
[2018-12-10 09:07] VITALS: BP 140/83
[2018-12-10 09:17] VITALS: BP 140/83
--- NOTE | 2018-12-10 10:43 | History and Physical ---
CHIEF COMPLAINT: Nausea, vomiting and dehydration. HISTORY OF PRESENT ILLNESS: The patient is a 38-year-old woman with a psychiatric history. She has been admitted multiple times for nausea or vomiting over the past several years. A prior workup included an upper and lower endoscopy, which was negative, as well as an MRI of the abdomen to rule out any vascular problems. The patient had multiple CT scans of the abdomen and pelvis as well. She now comes in complaining of recurrent nausea and vomiting. She notes some abdominal pain. She does not have fevers. PAST MEDICAL HISTORY 1. Recurrent nausea and vomiting. 2. Psychiatric illness. SOCIAL HISTORY: Patient is not smoking cigarettes or drinking alcohol at this time. PAST SURGICAL HISTORY: Status post cholecystectomy. FAMILY HISTORY: History of hypertension and diabetes. REVIEW OF SYSTEMS: There is no fever. Patient has no headache. She has no neck pain. She has no chest pain or cough. She has no dyspnea. She does report some abdominal pain, as well as some nausea and vomiting. She has no leg edema or calf tenderness. Shows no facial swelling or erythema. Dyspnea. She does have abdominal pain with nausea and vomiting. She does not complain of leg edema. There are no focal neurological complaints. PHYSICAL EXAMINATION VITALS: The blood pressure is 162/102 and the pulse is 100. The saturation is 99%. Respiratory rate is 19. HEENT: Shows no facial swelling or erythema. The nasal mucosa is normal. The oropharynx is normal. LYMPHATIC: Shows no submandibular, cervical or supraclavicular adenopathy. NECK: Shows no JVD or thyromegaly. CARDIOVASCULAR: Reveals a regular rate and rhythm with a normal S1 and S2. There are no murmurs or rubs. LUNGS: Auscultation of lungs reveals clear breath sounds bilaterally. There is no wheezing. ABDOMEN: Soft and nontender. There is no rebound or guarding. EXTREMITIES: There is no leg edema or calf tenderness. There is no cyanosis or clubbing. SKIN: Shows no rashes. NEUROLOGIC: Shows no focal abnormalities. LABORATORY DATA: The potassium is 3.1 and the carbon dioxide is 18. The other electrolytes are within normal limits. CBC is within normal limits. IMPRESSION 1. Nausea and vomiting leading to dehydration. 2. Metabolic alkalosis. 3. Hypokalemia. 4. Hypertension. PLAN 1. IV. Fluids. 2. Antiemetics. 3. Control blood pressure. 4. Replace potassium. Job#: [id number] RI
[2018-12-10] MEDS: SOD CHL 0.45%/POT CHL 20MEQ 1,000 ML IV SCH ×2 (11:10→19:00)
[2018-12-10 11:26] VITALS: BP 132/80
[2018-12-10] MEDS ORDERED: BUSPIRONE HCL5 MG PO (15:23)
[2018-12-10] MEDS ORDERED: ACETAMINOPHEN 325 MG TAB PO ONE (15:30)
[2018-12-10 16:30] VITALS: BP 135/79
--- NOTE | 2018-12-10 19:00 | NUR ---
rounded with material handler 2nd shift nurse, patient aware of change. Call coello within reach and bed in lowest position.
[2018-12-10 20:00] VITALS: BP 128/86
[2018-12-10] MEDS: QUETIAPINE FUMARATE 100 MG TAB PO SCH (20:48)
[2018-12-10] MEDS ORDERED: QUETIAPINE FUMARATE 25 MG TAB PO SCH (21:00)
[2018-12-11] VITALS (9 sets, daily range): BP systolic 105–183; BP diastolic 62–116
[2018-12-11] MEDS: METOCLOPRAMIDE HCL 10 MG/2ML VIAL IV SCH ×4 (00:31→17:54)
[2018-12-11] MEDS: SOD CHL 0.45%/POT CHL 20MEQ 1,000 ML IV SCH ×3 (04:00→16:45)
[2018-12-11 05:35] LABS: BASOPHILS % 0.5 % (0.0-1.0); EOSINOPHILS # (AUTO) 0.2 (0.0-0.4); EOSINOPHILS % 2.7 % (0.0-6.0); HEMATOCRIT 28.4 % (34.2-44.1); HEMOGLOBIN 8.9 g/dL (12.0-16.0); LYMPHOCYTES # (AUTO) 3.3 (1.0-3.2); LYMPHOCYTES % 50.9 % (18.0-39.1); MEAN CORPUSCULAR HGB CONC 31.3 g/dL (31-35); MEAN CORPUSCULAR VOLUME 76.5 fL (81-99); MONOCYTES # (AUTO) 0.7 (0.2-0.8); MONOCYTES % 10.7 % (4.4-11.3); NEUTROPHILS # (AUTO) 2.2 (2.1-6.9); PLATELET COUNT 397 x10e3/uL (140-360); RED BLOOD COUNT 3.71 x10e6/uL (3.6-5.1); RED CELL DISTRIBUTION WIDTH 24.2 % (11.7-14.4)
[2018-12-11 06:04] LABS: ALANINE AMINOTRANSFERASE 14 IU/L (0-55); ALBUMIN 2.8 g/dL (3.5-5.0); ALBUMIN/GLOBULIN RATIO 1.1 (0.8-2.0); ALKALINE PHOSPHATASE 63 IU/L (40-150); ANION GAP 12.3 mmol/L (8-16); BLOOD UREA NITROGEN < 5 mg/dL (7-26); CARBON DIOXIDE 22 mmol/L (22-29); CHLORIDE 108 mmol/L (98-107); CREATININE, SERUM 0.73 mg/dL (0.57-1.11); EST GLOMERULAR FILTRATION RATE > 60 ML/MIN (60-); GLUCOSE 83 mg/dL (74-118); POTASSIUM 3.3 mmol/L (3.5-5.1); SODIUM 139 mmol/L (136-145)
[2018-12-11 06:08] LABS: BUN/CREATININE RATIO 7 (6-25)
--- NOTE | 2018-12-11 06:55 | NUR ---
MD has been notified of patient's loose stools. no new orders received. will continue to monitor patient.
[2018-12-11 08:20] LABS: EOSINOPHILS % (MANUAL) 3 % (0-7); LYMPHOCYTES % (MANUAL) 50 % (19-48); MONOCYTES % (MANUAL) 16 % (3.4-9.0); NEUTROPHILS % (MANUAL) 30 % (40-74)
[2018-12-11 08:21] LABS: ANISOCYTOSIS MODERATE; HYPOCHROMASIA MODERATE; PLATELET ESTIMATE ADEQUATE; PLATELET MORPHOLOGY COMMENT NORMAL; RBC MORPHOLOGY COMMENT NORMAL
--- NOTE | 2018-12-11 08:30 | NUR ---
Patient up in bed, vomiting, PRN Phenergan IV given, rechecked BP manually 180/95, PRN BP medication will give and recheck BP
[2018-12-11] MEDS: METOPROLOL TARTRATE INJ 1 MG/ML VIAL IV PRN ×2 (08:31→13:29)
[2018-12-11] MEDS: CITALOPRAM HYDROBROMIDE 20 MG TAB PO SCH (08:31)
[2018-12-11] MEDS: PROMETHAZINE 12.5MG/ NACL 0.9% 12.5 MG/50 ML BAG IV PRN ×2 (08:31→22:26)
[2018-12-11] MEDS: PANTOPRAZOLE 40 MG 10ML VIAL IV SCH ×2 (08:31→17:54)
--- NOTE | 2018-12-11 08:56 | NUR ---
RECHECKED BP 142/60, NOT IN ANY DISTRESS, CALL LIGHT IN REACH
--- NOTE | 2018-12-11 09:12 | NUR ---
WENT IN TO SPEAK WITH PATIENT. SHE WAS VOMITING AND ASKED FOR THE NURSE, ALERTED NURSE TO PT CONDITION AND WILL ATTEMPT TO RETURN AT A LATER TIME.
--- NOTE | 2018-12-11 12:13 | NUR ---
PATIENT'S BP 180/100, PAGED DR Andrew GREENE FOR ORDERS, PATIENT SITTING UP IN BED, NO DISTRESS NOTED
--- NOTE | 2018-12-11 12:55 | NUR ---
Talked to Dr Andrew Pulido face to face, new order given to give another dose of metoprolol IV NOW and cut down IV fluids to 75cc/hr.
[2018-12-11] MEDS ORDERED: METOPROLOL TARTRATE INJ 1 MG/ML VIAL IV PRN (14:15)
[2018-12-11] MEDS ORDERED: DIAZEPAM 2 MG TAB PO PRN (14:30)
[2018-12-11] MEDS ORDERED: HYDROMORPHONE 1MG/1ML INJ IV PRN (14:30)
[2018-12-11] MEDS ORDERED: DIAZEPAM 5 MG TAB PO PRN (14:30)
[2018-12-11] MEDS ORDERED: LISINOPRIL 20 MG TAB PO SCH (17:00)
[2018-12-11] MEDS: HYDROMORPHONE 2MG/ML 2 MG/ML ML IV PRN ×2 (17:54→22:28)
--- NOTE | 2018-12-11 18:33 | NUR ---
patient resting in bed, tolerated with dinner, not in any distress
--- NOTE | 2018-12-11 20:14 | NUR ---
PT ARRIVED BY HOSPITAL BED. PT IS AAOX3, RR EVEN AND NON-LABORED, ON RA. NO S/SX OF DISTRESS NOTED. LEFT PT LAYING SEMI FOWLERS IN BED, BED IN LOW LOCKED POSITION, SIDE RAILS UPX2, CALL LIGHT AND PHONE WITHIN REACH.
[2018-12-11] MEDS: QUETIAPINE FUMARATE 100 MG TAB PO SCH (20:51)
[2018-12-11] MEDS ORDERED: COLESTIPOL HCL 1 G TAB PO STA (23:33)
[2018-12-12] VITALS: BP 104/58
[2018-12-12] MEDS ORDERED: METOCLOPRAMIDE HCL 10 MG/2ML VIAL IV SCH
[2018-12-12] MEDS: METOCLOPRAMIDE 10MG/2ML VIAL 15 MG in SODIUM CHLORIDE 0.9% 50ML 50 ML IV SCH ×3 (00:02→12:36)
[2018-12-12] MEDS ORDERED: POTASSIUM CHLORIDE 20 MEQ TAB CR PO STA (01:49)
[2018-12-12] MEDS: SOD CHL 0.45%/POT CHL 20MEQ 1,000 ML IV SCH (02:09)
[2018-12-12 02:22] LABS: BILIRUBIN,URINE NEGATIVE (NEGATIVE); CLARITY,URINE SL CLOUDY (CLEAR); COLOR,URINE YELLOW (YELLOW); KETONES,URINE NEGATIVE (NEGATIVE); LEUKOCYTE ESTERASE ,URINE 1+ (NEGATIVE); NITRITE,URINE NEGATIVE (NEGATIVE); PROTEIN,URINE DIPSTICK NEGATIVE (NEGATIVE); URINE UROBILINOGEN 0.2 mg/dL (0.2 - 1)
[2018-12-12 02:23] LABS: BACTERIA,URINE FEW /HPF; EPITHELIAL CELLS,URINE FEW /LPF; RBC,URINE 0-5 /HPF (0-5)
[2018-12-12] MEDS ORDERED: POTASSIUM CHLORIDE 20 MEQ TAB CR PO ONE (03:00)
[2018-12-12 04:00] VITALS: BP 97/54
[2018-12-12] MEDS: PROMETHAZINE 12.5MG/ NACL 0.9% 12.5 MG/50 ML BAG IV PRN (05:27)
[2018-12-12] MEDS: HYDROMORPHONE 2MG/ML 2 MG/ML ML IV PRN ×3 (05:27→13:35)
[2018-12-12 06:10] LABS: BLOOD UREA NITROGEN < 5 mg/dL (7-26); CALCIUM 8.4 mg/dL (8.4-10.2); CARBON DIOXIDE 21 mmol/L (22-29); CHLORIDE 107 mmol/L (98-107); CREATININE, SERUM 0.69 mg/dL (0.57-1.11); EST GLOMERULAR FILTRATION RATE > 60 ML/MIN (60-); GLUCOSE 95 mg/dL (74-118); SODIUM 139 mmol/L (136-145)
[2018-12-12 06:33] LABS: BUN/CREATININE RATIO 7 (6-25)
--- NOTE | 2018-12-12 07:00 | NUR ---
RECEIVED SHIFT CHANGE ROUNDING REPORT FROM NIGHT RN. PT DENIES NEEDS AT THIS TIME.
[2018-12-12 08:04] VITALS: BP 90/50
[2018-12-12] MEDS: DICYCLOMINE HCL 20 MG TAB PO SCH ×2 (08:57→12:36)
[2018-12-12] MEDS: PANTOPRAZOLE 40 MG 10ML VIAL IV SCH (08:57)
[2018-12-12] MEDS: CITALOPRAM HYDROBROMIDE 20 MG TAB PO SCH (08:58)
[2018-12-12 09:00] VITALS: BP 90/50
[2018-12-12] MEDS ORDERED: COLESTIPOL HCL 1 G TAB PO SCH (09:00)
--- NOTE | 2018-12-12 09:33 | NUR ---
SPOKE WITH PATIENT WHOM STATES SHE IS GOING TO SEE HER GASTRO DOCTOR AND MADE AN APPOINTMENT THIS MORNING BUT HE DOES NOT HAVE AN AVAILABLE APPOINTMENT UNTIL JANUARY. GAVE PACKET OF INFORMATION WITH COMMUNITY RESOURCES FOR ASSISTANCE WITH LOW TO NO INCOME TO PATIENT. RESOURCES THAT PATIENT MAY BE ABLE TO FOLLOW UP UPON DISCHARGE. PT EDUCATED ON EACH RESOURCE AND UNDERSTANDING HOW TO FOLLOW UP TO SEE IF QUALIFIED FOR EACH RESOURCE.
[2018-12-12 13:05] VITALS: BP 102/58
[2018-12-12] MEDS ORDERED: PANTOPRAZOLE SO40 MG PO (16:11)
[2018-12-12] MEDS ORDERED: COLESTIPOL HCL1 GM PO (16:12)
[2018-12-12 16:33] VITALS: BP 110/64
--- NOTE | 2018-12-13 01:18 | Discharge Summary ---
DISCHARGE DIAGNOSES 1. Gastroparesis with recurrent nausea and vomiting. 2. Dehydration. 3. Hypokalemia. 4. Hypertension. CONSULTING PHYSICIANS: Dr. Cosmo Barros of gastroenterology. DISCHARGE MEDICATIONS 1. BuSpar 2.5 mg p.o. b.i.d. 2. Citalopram 40 mg p.o. daily. 3. Diazepam 5 mg p.o. b.i.d. p.r.n. 4. Zofran 4 mg p.o. q.4 p.r.n. 5. Protonix 40 mg p.o. b.i.d. 6. Promethazine 25 mg p.o. q.6 p.r.n. 7. Propranolol 20 mg p.o. b.i.d. 8. Seroquel 600 mg p.o. nightly. HISTORY OF PRESENT ILLNESS: The patient is a 38-year-old woman with history of recurrent admissions for nausea and vomiting over the past several years. She now comes in again with nausea and vomiting and abdominal pain. HOSPITAL COURSE: The patient was admitted. She received IV fluids and repletion of her potassium. She required low-dose Dilaudid. She gradually improved over 24 to 48 hours. The patient's hospital course was also complicated by hypertension and tachycardia. She required some additional Lopressor and her blood pressure improved. DISPOSITION: The patient will be discharged home. She is scheduled to make an appointment with Dr. Mccain of gastroenterology at [facility] to have an evaluation for gastric motility problems. LANDRY RON MD Job#: [id number] GE
== END 2018-12-12 16:34 | disposition home or self-care (01) | DRG 392 ==
LOC: ER 21:14 → ERHOLD 23:25 → IMCU 12-10 08:54 → OBSVTOIN 12-11 14:19 → MED/SURG 12-11 20:18
PROVIDERS: ADMIT Internal Medicine Critical Care Medicine; ATTEND Internal Medicine Critical Care Medicine
DX: K31.84 Gastroparesis (principal); E87.3 Alkalosis; E87.6 Hypokalemia; E86.0 Dehydration; T40.7X1A Poisoning by cannabis (derivatives), accidental (unintentional), initial encounter; I10 Essential (primary) hypertension; R19.7 Diarrhea, unspecified; R00.0 Tachycardia, unspecified; Z88.5 Allergy status to narcotic agent; Z88.8 Allergy status to other drugs, medicaments and biological substances; Z91.048 Other nonmedicinal substance allergy status; Z83.3 Family history of diabetes mellitus; Z82.49 Family history of ischemic heart disease and other diseases of the circulatory system
CPT/HCPCS: 36415; 80048; 80053; 80307; 81001; 81025; 82150; 83690; 85025; 87086; 96361; 99284; G0378; J2405; J2550; J2765; J3480; J7030

== ENCOUNTER 2018-12-14 14:35 | Observation (INO) | payer SELFPAY ==
[~2018-12-14] VITALS: Ht 165.1 cm; Wt 82.1 kg
[~2018-12-14 14:35] MED LIST changes: +BUSPIRONE HCL5 MG PO; +COLESTIPOL HCL1 GM PO
--- OUTSIDE RECORDS SUMMARY | 2018-12-14 14:37 | XMS REPORT | Clinical Summary ---
Author Author MAHTEW [facility] Address Unknown Phone Unavailable Care Team Providers Care Scientific Aide Name Role Phone PCP Unavailable Allergies Comments [...] Medication Active vitamin Take 1 tablet 0 w/wgsvmgr-atof-vewzyk by mouth ( PLUS) 27 mg daily. [...] Not on file Results Not on fileafter 12/13/2017 Insurance Payer Benefit Subscriber ID Type Phone Address Plan / Group BLUE CROSS/BLUE SHIELD BCBS ADV xxxxxxxxxxxx [phone] [address] [place] [address] EXCHANGE
[2018-12-14] MEDS ORDERED: LABETALOL HCL 5 MG/ML 20ML VIAL IV STA ×2 (15:14→18:43)
[2018-12-14] MEDS ORDERED: FAMOTIDINE 20 MG/2 ML VIAL IV STA (15:14)
[2018-12-14] MEDS ORDERED: ONDANSETRON HCL INJ 2MG/ML 2ML 2 MG/ML VIAL IV STA (15:14)
[2018-12-14] MEDS ORDERED: DICYCLOMINE HCL 20 MG/2 ML VIAL IM ONE (15:15)
[2018-12-14 15:44] LABS: CLARITY,URINE SL CLOUDY (CLEAR); COLOR,URINE YELLOW (YELLOW); LEUKOCYTE ESTERASE ,URINE TRACE (NEGATIVE); NITRITE,URINE NEGATIVE (NEGATIVE); PROTEIN,URINE DIPSTICK TRACE (NEGATIVE)
[2018-12-14 15:45] LABS: BILIRUBIN,URINE NEGATIVE (NEGATIVE); KETONES,URINE 1+ (NEGATIVE); URINE UROBILINOGEN 0.2 mg/dL (0.2 - 1)
[2018-12-14 15:46] LABS: AMPHETAMINES SCREEN,URINE NEGATIVE (NEGATIVE); BENZODIAZEPINES SCREEN,URINE POSITIVE (NEGATIVE); PHENCYCLIDINE SCREEN,URINE NEGATIVE (NEGATIVE)
[2018-12-14 15:59] LABS: AMORPHOUS SEDIMENT,URINE MODERATE (FEW); BACTERIA,URINE MANY /HPF; EPITHELIAL CELLS,URINE MANY /LPF; TRANSITIONAL EPI CELLS,URINE MODERATE
[2018-12-14 16:58] LABS: BASOPHILS % 0.5 % (0.0-1.0); EOSINOPHILS % 0.3 % (0.0-6.0); HEMATOCRIT 35.2 % (34.2-44.1); HEMOGLOBIN 11.5 g/dL (12.0-16.0); LYMPHOCYTES # (AUTO) 0.7 (1.0-3.2); LYMPHOCYTES % 9.1 % (18.0-39.1); MEAN CORPUSCULAR HEMOGLOBIN 24.2 pg (28-32); MEAN CORPUSCULAR HGB CONC 32.7 g/dL (31-35); MEAN CORPUSCULAR VOLUME 73.9 fL (81-99); MONOCYTES # (AUTO) 0.6 (0.2-0.8); MONOCYTES % 7.6 % (4.4-11.3); NEUTROPHILS # (AUTO) 6.4 (2.1-6.9); NEUTROPHILS % 82.1 % (38.7-80.0); PLATELET COUNT 437 x10e3/uL (140-360); RED BLOOD COUNT 4.76 x10e6/uL (3.6-5.1); RED CELL DISTRIBUTION WIDTH 23.6 % (11.7-14.4)
[2018-12-14 17:20] LABS: ALANINE AMINOTRANSFERASE 20 IU/L (0-55); ALBUMIN 3.9 g/dL (3.5-5.0); ALKALINE PHOSPHATASE 104 IU/L (40-150); ANION GAP 23.1 mmol/L (8-16); BLOOD UREA NITROGEN 6 mg/dL (7-26); BUN/CREATININE RATIO 8 (6-25); CALCIUM 10.4 mg/dL (8.4-10.2); CARBON DIOXIDE 16 mmol/L (22-29); CHLORIDE 100 mmol/L (98-107); CREATININE, SERUM 0.75 mg/dL (0.57-1.11); EST GLOMERULAR FILTRATION RATE > 60 ML/MIN (60-); GLUCOSE 112 mg/dL (74-118); LIPASE 6 U/L (8-78); MAGNESIUM 1.3 MG/DL (1.3-2.1); PHOSPHORUS 0.8 MG/DL (2.3-4.7); POTASSIUM 3.1 mmol/L (3.5-5.1); SODIUM 136 mmol/L (136-145)
[2018-12-14] MEDS ORDERED: ACETAMINOPHEN 1000 MG/100 ML IV STA (17:50)
[2018-12-14] MEDS: CEFTRIAXONE SOD 1 GM/NS 50 ML 50 ML IV ONE ×2 (17:54→18:07)
[2018-12-14] MEDS ORDERED: HALOPERIDOL LACTATE 5 MG/ML VIAL IV ONE (18:00)
[2018-12-14] MEDS: SODIUM CHLORIDE 0.9% 1000ML 2,000 ML IV SCH ×2 (18:07→18:08)
[2018-12-14] MEDS ORDERED: HYOSCYAMINE SULFATE 0.5 MG/ML INJ IV PRN (18:45)
[2018-12-14] MEDS ORDERED: ACETAMINOPHEN 1000 MG/100 ML IV PRN (18:45)
[2018-12-14] MEDS ORDERED: POTASSIUM PHOSPHATE 20 MM in SODIUM CHLORIDE 0.9% 250ML 250 ML IV ONE (18:45)
[2018-12-14] MEDS ORDERED: LABETALOL HCL 5 MG/ML 20ML VIAL IV PRN (19:00)
[2018-12-14] MEDS ORDERED: LABETALOL HCL 20 MG/4 ML SYRINGE IV ONE (19:00)
--- NOTE | 2018-12-14 19:04 | NUR ---
Report to HEATHER Meza, walking rounds. Pt ambulating to BR w/out difficulties. Steady gait noted.
[2018-12-14 19:06] LABS: ANISOCYTOSIS SLIGHT
[2018-12-14 19:07] LABS: MICROCYTOSIS SLIGHT; PLATELET ESTIMATE MODERATELY INCREASED; PLATELET MORPHOLOGY COMMENT NORMAL; RBC MORPHOLOGY COMMENT NORMAL
[2018-12-14] MEDS ORDERED: LABETALOL HCL 20 MG/4 ML SYRINGE IV PRN (19:15)
--- NOTE | 2018-12-14 19:17 | Diagnostic Imaging Report ---
Exam: Abdominal film Clinical History: Vomiting, cold sweat Comparison: CT abdomen and pelvis without contrast 11/20/2018 DISCUSSION: Frontal view of the abdomen shows a nonobstructive bowel gas pattern with mild amount of retained stool.There are no dilated, air-filled loops of bowel. There are no abnormal calcifications.No acute bone abnormality. IMPRESSION: 1. Nonobstructive bowel gas pattern. The staff physician below has personally reviewed this exam on the date of dictation. Signed by: Dr. David Patton M.D. on 12/14/2018 7:14 PM
--- OUTSIDE RECORDS SUMMARY | 2018-12-14 19:44 | XMS REPORT | Clinical Summary ---
Author Author MATHEW [facility] Address Unknown Phone Unavailable Care Team Providers Care Scientific Advisor Name Role Phone PCP Unavailable Allergies Comments [...] Medication Active vitamin Take 1 tablet 0 w/mucryqn-xwun-xfgosa by mouth ( PLUS) 27 mg daily. [...] Group BLUE CROSS/BLUE [employer]IELD BCBS ADV xxxxxxxxxxxx [phone] [address] [place] [address] EXCHANGE
[2018-12-14] MEDS: SODIUM CHLORIDE 0.9% 1000ML 1,000 ML IV SCH (20:03)
[2018-12-14 21:45] VITALS: BP 174/111
[2018-12-14 21:59] VITALS: BP 174/116
--- NOTE | 2018-12-14 22:00 | NUR ---
Patient received via W/C accompanied by mother. Admission history and Initial physical assessment conducted. Patient is AAO x 4. Patient had no complaints of pain. No signs of respiratory distress. Fall precautions maintained. Patient oriented to room, call light and plan of care. Patient instructed to call for assistance when needed. Call light within reach.
[2018-12-14] MEDS: METOCLOPRAMIDE HCL 10 MG/2ML VIAL IV PRN (22:12)
[2018-12-14 22:51] VITALS: BP 174/116
[2018-12-15] VITALS (8 sets, daily range): BP systolic 118–146; BP diastolic 72–104
[2018-12-15] MEDS: HALOPERIDOL LACTATE 5 MG/ML VIAL IV SCH ×3 (00:37→12:13)
[2018-12-15] MEDS: SODIUM CHLORIDE 0.9% 1000ML 1,000 ML IV SCH ×2 (02:44→10:44)
[2018-12-15] MEDS: METOCLOPRAMIDE HCL 10 MG/2ML VIAL IV PRN ×2 (04:20→08:47)
[2018-12-15 05:33] LABS: BASOPHILS % 0.5 % (0.0-1.0); EOSINOPHILS % 0.2 % (0.0-6.0); HEMATOCRIT 29.8 % (34.2-44.1); HEMOGLOBIN 9.6 g/dL (12.0-16.0); LYMPHOCYTES # (AUTO) 1.2 (1.0-3.2); LYMPHOCYTES % 17.4 % (18.0-39.1); MEAN CORPUSCULAR HEMOGLOBIN 23.9 pg (28-32); MEAN CORPUSCULAR HGB CONC 32.2 g/dL (31-35); MEAN CORPUSCULAR VOLUME 74.1 fL (81-99); MONOCYTES # (AUTO) 1.1 (0.2-0.8); MONOCYTES % 16.2 % (4.4-11.3); NEUTROPHILS # (AUTO) 4.4 (2.1-6.9); NEUTROPHILS % 65.4 % (38.7-80.0); PLATELET COUNT 349 x10e3/uL (140-360); RED BLOOD COUNT 4.02 x10e6/uL (3.6-5.1); RED CELL DISTRIBUTION WIDTH 23.5 % (11.7-14.4)
[2018-12-15 06:10] LABS: ALANINE AMINOTRANSFERASE 17 IU/L (0-55); ALBUMIN 3.2 g/dL (3.5-5.0); ALKALINE PHOSPHATASE 82 IU/L (40-150); ANION GAP 15.8 mmol/L (8-16); BLOOD UREA NITROGEN < 5 mg/dL (7-26); BUN/CREATININE RATIO 8 (6-25); CALCIUM 8.1 mg/dL (8.4-10.2); CARBON DIOXIDE 21 mmol/L (22-29); CHLORIDE 103 mmol/L (98-107); CREATININE, SERUM 0.64 mg/dL (0.57-1.11); EST GLOMERULAR FILTRATION RATE > 60 ML/MIN (60-); GLUCOSE 118 mg/dL (74-118); PHOSPHORUS 3.8 MG/DL (2.3-4.7); SODIUM 137 mmol/L (136-145)
[2018-12-15 06:11] LABS: POTASSIUM 2.8 mmol/L (3.5-5.1)
[2018-12-15] MEDS ORDERED: POTASSIUM CHLORIDE 20 MEQ TAB CR PO SCH (06:15)
--- NOTE | 2018-12-15 06:18 | NUR ---
Dr. Wendy Pulido notified of critical lab value of potassium---2.8. New order received.
--- NOTE | 2018-12-15 07:19 | NUR ---
Patient resting comfortably. Report given to oncoming nurse.
[2018-12-15 07:58] LABS: ANISOCYTOSIS MODERATE; PLATELET ESTIMATE ADEQUATE; PLATELET MORPHOLOGY COMMENT NORMAL; RBC MORPHOLOGY COMMENT ABNORMAL
[2018-12-15] MEDS: FAMOTIDINE 20 MG/2 ML VIAL IV SCH ×2 (08:47→17:45)
--- NOTE | 2018-12-15 08:53 | NUR ---
Met with Dr. Wendy Pulido regarding 4 admits this month by pt with same/similar dx. He does not want psych consult or MAT consult. He stated he is managing the pt himself.
--- NOTE | 2018-12-15 09:07 | NUR ---
Per instructions from CM Director Alesia Gonzalez, CM notified Dr. Vilchis of this pt and her 4 visits this month. Notified him Dr. Wendy Pulido states he can manage pt, and does not want psych or MAT on the case.
--- NOTE | 2018-12-15 12:17 | NUR ---
SPOKE WITH PT ABOUT RETURN VISIT. SHE STATES NO CHANGES FROM DISCHARGE PRIOR DAY. STATES SHE IS GOING TO SEE HER GASTRO DOCTOR FROM THE PRIOR MADE APPOINTMENT IN JANUARY. GAVE PACKET OF INFORMATION WITH COMMUNITY RESOURCES FOR ASSISTANCE WITH LOW TO NO INCOME TO PATIENT. RESOURCES THAT PATIENT MAY BE ABLE TO FOLLOW UP UPON DISCHARGE. PT EDUCATED ON EACH RESOURCE AND UNDERSTANDING HOW TO FOLLOW UP TO SEE IF QUALIFIED FOR EACH RESOURCE.
--- NOTE | 2018-12-15 13:06 | NUR ---
Nutrition Screen Note RD Recommendation for Physician: Advance diet as tolerated when medically feasible Plan of Care: RD following, monitoring for adequacy and tolerance Nutrition reason for involvement: Nutrition Risk Trigger-MST Primary Diagnose(s): Cannabinoid hyperemesis Ht: 65in Wt:123lbs BMI:20.5 kg/m2 IBW:130lbs RD Assessment:(12/15/2018) Initial encounter with patient. Pt is nauseated and on clear liquids, Some diarrhea, no difficulty chewing or swallowing. Pt states that she has a "So So" appetite Current Diet: clear liquid diet Malnutrition Evaluation (12/15/2018) The patient does not meet criteria for a specified degree of malnutrition at this time. Will re-evaluate at follow-up as appropriate. Diet Education Needs Assessment: Diet education not indicated. Diet Adequacy: Not meeting calorie needs, Not meeting protein needs Tolerance: Tolerating PO Nutrition Care Level: Justen Mena RD, LD, [facility]
[2018-12-15] MEDS ORDERED: ONDANSETRON HCL INJ 2MG/ML 2ML 2 MG/ML VIAL IV PRN (13:15)
[2018-12-15] MEDS ORDERED: DIAZEPAM 5 MG TAB PO PRN (13:15)
[2018-12-15] MEDS ORDERED: LABETALOL HCL 20 MG/4 ML SYRINGE IV PRN (13:15)
[2018-12-15] MEDS ORDERED: PROPRANOLOL HCL 10 MG TAB PO PRN (13:15)
[2018-12-15] MEDS ORDERED: PROMETHAZINE 12.5MG/ NACL 0.9% 12.5 MG/50 ML BAG IV PRN (13:15)
[2018-12-15] MEDS ORDERED: POTASSIUM CHLORIDE 20 MEQ TAB CR PO ONE (13:30)
--- NOTE | 2018-12-15 13:36 | NUR ---
Dr. Vilchis spoke t with Dr. Wendy Pulido. Stated pt will be dc'd today and she has outpatient psychiatric follow up. Also she will follow up with outpatient [facility] cash control specialist in December. Updated CM Director Alesia Gonzalez
[2018-12-15] MEDS: SOD CHL 0.45%/POT CHL 20MEQ 1,000 ML IV SCH ×2 (14:10→23:00)
[2018-12-15] MEDS: SUCRALFATE 1 GM TAB PO SCH (14:10)
--- NOTE | 2018-12-15 14:30 | NUR ---
Patient states she is feeling "anxious" when I asked about what she stated, "everything, she is diaphoretic, c/o of her muscles being stiff but easily loosens them when asked to relax. She is able to move all extremities on command and talk clearly when asked to. Patient's mom states she has had severe anxiety episodes in the past. Current VS: BP: 144/88 P:110 T: 98.1 R:18. PRN Valium given. Ice pack given. notified. No new orders received at this time. Will continue to monitor, patient's mother is at the bedside.
--- NOTE | 2018-12-15 15:30 | History and Physical ---
CHIEF COMPLAINT: Recurrent nausea, vomiting, and dehydration. HISTORY OF PRESENT ILLNESS: The patient is a 38-year-old woman. She has a history of depression since childhood. She is currently following with a psychiatrist, Dr. Punetes, whom she last saw about 4 weeks ago. She is on Celexa 40 mg a day as well as Seroquel at night. She also has a history of recurrent nausea and vomiting, over 4 to 5 years. She originally received an evaluation from Dr. Mccain at [facility]. A gastric emptying scan at that time showed gastroparesis. Patient subsequently did better, but now her vomiting has recurred. She has required multiple admissions to [facility] over the past year. She received upper and lower endoscopy, which were normal. She also had a CT scan of the abdomen and pelvis as well as an MRI of the abdomen with arterial evaluation to look for any arterial insufficiency or ischemic bowel. All of these tests were negative. Her recurrent nausea and vomiting were subsequently attributed to a cannabis hyperemesis syndrome. Patient has not smoked marijuana for 16 days, but her symptoms have not improved, in fact they have worsened. She was recently in the hospital not feeling better, but when she went home, she started having nausea and vomiting again. PAST MEDICAL HISTORY 1. Gastroparesis with recurrent nausea and vomiting. 2. Depression. SOCIAL HISTORY: The patient quit smoking marijuana 16 days ago. Prior to that, she was a moderate marijuana user, smoking only about 3 to 4 times a week. She never used any synthetic cannabinoids. She denies any other drug abuse. She is not a smoker. She is not a drinker. She is here with her mother who is very supportive. PAST SURGICAL HISTORY: Status post cholecystectomy. FAMILY HISTORY: Significant for hypertension and diabetes. REVIEW OF SYSTEMS: The patient is afebrile. She has no headache. She has no chest pain or cough. She is not having any trouble breathing. She does have some abdominal pain as well as nausea and vomiting. She has no leg edema or calf tenderness. She has no cyanosis or clubbing. Skin examination shows no rashes. Neurologic exam shows no focal abnormalities. PHYSICAL EXAMINATION VITAL SIGNS: The blood pressure is 135/90 and the pulse is 103, respiratory rate is 18, and saturation is 96%. HEENT: Shows no facial swelling or erythema. The nasal mucosa is normal. The oropharynx is normal. LYMPHATIC: Shows no submandibular, cervical, or supraclavicular adenopathy. NECK: Shows no JVD or thyromegaly. There is no nuchal rigidity. CARDIOVASCULAR: Reveals a regular rate and rhythm with a normal S1 and S2. There are no murmurs or rubs. LUNGS: Auscultation of lungs shows clear breath sounds bilaterally. There is no wheezing. ABDOMEN: Soft, nontender. There is no rebound or guarding. EXTREMITIES: Shows no leg edema or calf tenderness. There is no cyanosis or clubbing. SKIN: Shows no rashes. NEUROLOGICAL: Shows no focal abnormalities. LABORATORY DATA: Potassium is 2.8 with a bicarbonate of 21, calcium of 128. Phosphorus was initially 0.8 but has improved to 3.7. IMPRESSION 1. Recurrent nausea and vomiting. 2. Hypokalemia. 3. Hypophosphatemia. 4. Hypercalcemia secondary to dehydration. 5. Depression. PLAN 1. Patient received IV fluids. 2. Antiemetics. 3. Replete potassium. 4. Replete phosphorus. Job#: [id number] LPA
[2018-12-15] MEDS: BUSPIRONE HCL 5 MG TAB PO SCH (16:37)
[2018-12-15] MEDS: METOCLOPRAMIDE HCL 10 MG/2ML VIAL IV SCH ×2 (16:37→22:00)
[2018-12-15] MEDS: DIPHENOXYLATE/ATROPINE TAB PO PRN ×2 (16:37→20:28)
--- NOTE | 2018-12-15 17:55 | NUR ---
Patient continues to have complaints of generalized muscle spams and tightening, including the face, she states "she cant relax", she is diaphoretic. When asked to relax certain areas of the body, she is able to. Rapid response was called so MD could evaluate. ER doc at the bedside along with rapid response team. Current VS: BP:161/111 P:121 R:26 T: 96.3 02: 98% on room air. New orders received and carried out. Rapid response resolved. Dr. Pulido called and is coming to see the patient as well.
[2018-12-15] MEDS ORDERED: DIPHENHYDRAMINE HCL INJ 50 MG/ML VIAL ONE (17:59)
[2018-12-15 18:19] LABS: BASOPHILS % 0.5 % (0.0-1.0); EOSINOPHILS # (AUTO) 0.1 (0.0-0.4); EOSINOPHILS % 1.1 % (0.0-6.0); HEMATOCRIT 32.8 % (34.2-44.1); HEMOGLOBIN 10.7 g/dL (12.0-16.0); LYMPHOCYTES # (AUTO) 2.2 (1.0-3.2); LYMPHOCYTES % 26.8 % (18.0-39.1); MEAN CORPUSCULAR HEMOGLOBIN 24.4 pg (28-32); MEAN CORPUSCULAR HGB CONC 32.6 g/dL (31-35); MEAN CORPUSCULAR VOLUME 74.7 fL (81-99); MONOCYTES # (AUTO) 1.4 (0.2-0.8); MONOCYTES % 17.5 % (4.4-11.3); NEUTROPHILS # (AUTO) 4.5 (2.1-6.9); NEUTROPHILS % 53.9 % (38.7-80.0); PLATELET COUNT 369 x10e3/uL (140-360); RED BLOOD COUNT 4.39 x10e6/uL (3.6-5.1); RED CELL DISTRIBUTION WIDTH 23.9 % (11.7-14.4)
[2018-12-15 18:27] LABS: CALCIUM IONIZED 1.1 mmol/L (1.09-1.30)
--- NOTE | 2018-12-15 18:30 | NUR ---
Dr. Pulido is at the bedside assessing the patient. She is longer complaining of muscle stiffness and is speaking to the physician clearly. She has no complaints at this time.
[2018-12-15 18:38] LABS: ALANINE AMINOTRANSFERASE 19 IU/L (0-55); ALBUMIN 3.6 g/dL (3.5-5.0); ALBUMIN/GLOBULIN RATIO 1.1 (0.8-2.0); ALKALINE PHOSPHATASE 90 IU/L (40-150); ANION GAP 19.7 mmol/L (8-16); BLOOD UREA NITROGEN < 5 mg/dL (7-26); CALCIUM 8.9 mg/dL (8.4-10.2); CARBON DIOXIDE 15 mmol/L (22-29); CHLORIDE 109 mmol/L (98-107); CREATINE KINASE 86 IU/L (29-168); CREATININE, SERUM 0.71 mg/dL (0.57-1.11); EST GLOMERULAR FILTRATION RATE > 60 ML/MIN (60-); GLUCOSE 106 mg/dL (74-118); MAGNESIUM 1.4 MG/DL (1.3-2.1); PHOSPHORUS 1.2 MG/DL (2.3-4.7); POTASSIUM 4.7 mmol/L (3.5-5.1); SODIUM 139 mmol/L (136-145)
[2018-12-15 18:40] LABS: BUN/CREATININE RATIO 7 (6-25)
[2018-12-15] MEDS ORDERED: BENZTROPINE MESYLATE 1 MG/ML IV ONE (19:00)
--- NOTE | 2018-12-15 19:32 | NUR ---
Patient received sitting up in bed. Mother at bedside. Patient had no complaints of pain, nausea or respiratory distress. Patient instructed to call for assistance when needed. Call light within reach.
[2018-12-15] MEDS ORDERED: QUETIAPINE FUMARATE 100 MG TAB PO SCH (21:00)
[2018-12-16] VITALS: BP 128/78
[2018-12-16 04:00] VITALS: BP 131/79
[2018-12-16 05:00] LABS: BASOPHILS % 0.5 % (0.0-1.0); EOSINOPHILS # (AUTO) 0.2 (0.0-0.4); EOSINOPHILS % 3.1 % (0.0-6.0); HEMATOCRIT 28.7 % (34.2-44.1); LYMPHOCYTES # (AUTO) 2.1 (1.0-3.2); LYMPHOCYTES % 33.3 % (18.0-39.1); MEAN CORPUSCULAR HGB CONC 31.4 g/dL (31-35); MEAN CORPUSCULAR VOLUME 76.5 fL (81-99); MONOCYTES # (AUTO) 0.9 (0.2-0.8); MONOCYTES % 14.6 % (4.4-11.3); NEUTROPHILS % 48.3 % (38.7-80.0); PLATELET COUNT 325 x10e3/uL (140-360); RED BLOOD COUNT 3.75 x10e6/uL (3.6-5.1); RED CELL DISTRIBUTION WIDTH 23.9 % (11.7-14.4)
[2018-12-16] MEDS: SOD CHL 0.45%/POT CHL 20MEQ 1,000 ML IV SCH (05:45)
[2018-12-16] MEDS: METOCLOPRAMIDE HCL 10 MG/2ML VIAL IV SCH (06:15)
[2018-12-16 06:44] LABS: ALANINE AMINOTRANSFERASE 14 IU/L (0-55); ALBUMIN/GLOBULIN RATIO 1.1 (0.8-2.0); ALKALINE PHOSPHATASE 70 IU/L (40-150); ANION GAP 15.7 mmol/L (8-16); CALCIUM 8.5 mg/dL (8.4-10.2); CARBON DIOXIDE 18 mmol/L (22-29); CHLORIDE 107 mmol/L (98-107); CREATININE, SERUM 0.59 mg/dL (0.57-1.11); EST GLOMERULAR FILTRATION RATE > 60 ML/MIN (60-); GLUCOSE 86 mg/dL (74-118); PHOSPHORUS 3.1 MG/DL (2.3-4.7); POTASSIUM 3.7 mmol/L (3.5-5.1); SODIUM 137 mmol/L (136-145)
[2018-12-16 06:45] LABS: BLOOD UREA NITROGEN < 2 mg/dL (7-26); BUN/CREATININE RATIO 3 (6-25)
[2018-12-16 07:10] VITALS: BP 150/88
[2018-12-16] MEDS: SUCRALFATE 1 GM TAB PO SCH ×2 (07:30→11:30)
[2018-12-16] MEDS ORDERED: COLESTIPOL HCL 1 G TAB PO SCH (09:00)
[2018-12-16] MEDS: BUSPIRONE HCL 5 MG TAB PO SCH (09:00)
[2018-12-16] MEDS ORDERED: CITALOPRAM HYDROBROMIDE 20 MG TAB PO SCH (09:00)
[2018-12-16] MEDS: FAMOTIDINE 20 MG/2 ML VIAL IV SCH (09:00)
[2018-12-16 11:52] VITALS: BP 143/89
--- NOTE | 2018-12-16 20:24 | Discharge Summary ---
DISCHARGE DIAGNOSE 1. Gastroparesis with recurrent nausea and vomiting. 2. Hypokalemia. 3. Metabolic acidosis. 4. Hypophosphatemia. 5. Major depression with associated anxiety. DISCHARGE MEDICATIONS 1. BuSpar 2.5 mg twice daily. 2. Celexa 40 mg a day. 3. Colestipol 1 g p.o. daily. 4. Diazepam 5 mg p.o. b.i.d. 5. Zofran 4 mg p.o. p.r.n. 6. Protonix 40 mg p.o. daily. 7. Promethazine p.o. 25 mg q.6 p.r.n. 8. Seroquel 600 mg p.o. daily. RADIOGRAPHIC DATA: Abdominal x-ray shows no abnormalities. HISTORY OF PRESENT ILLNESS: The patient is a 38-year-old woman. She has a history of depression as well as recurrent nausea and vomiting possibly secondary to gastroparesis. She came in again with recurrent nausea and vomiting. Upon admission, she was found to have low phosphorus as well as low potassium and metabolic acidosis. HOSPITAL COURSE: The patient was admitted. She was receiving IV fluids as well as the replacement of electrolytes. She also received supplemental potassium and phosphorus. She received antiemetics. Her symptoms subsequently improved with time and rehydration. DISPOSITION: Patient is discharged home. She is scheduled to follow up with Dr. Mccain of gastroenterology at [facility] in December as well as with Dr. Barros of gastroenterology in [place]. Job#: [id number] MAGUI
== END 2018-12-16 13:00 | disposition home or self-care (01) ==
LOC: ER 14:35 → ERHOLD 18:51 → MED/SURG2 21:15
PROVIDERS: ADMIT Internal Medicine Critical Care Medicine; ATTEND Internal Medicine Critical Care Medicine
DX: K31.84 Gastroparesis (principal); E83.39 Other disorders of phosphorus metabolism; I10 Essential (primary) hypertension; N39.0 Urinary tract infection, site not specified; E87.6 Hypokalemia; E83.52 Hypercalcemia; E86.0 Dehydration; E87.2 Acidosis; F33.9 Major depressive disorder, recurrent, unspecified; Z88.5 Allergy status to narcotic agent; Z91.048 Other nonmedicinal substance allergy status; F41.9 Anxiety disorder, unspecified
CPT/HCPCS: 36415 ×3; 74019; 80053 ×3; 80307; 81001; 81025; 82330; 82550; 83690; 83735 ×2; 84100 ×3; 85025 ×3; 99284; G0378 ×3; J0131 ×2; J0500; J0515; J0696; J1200; J1630 ×2; J1980; J2405; J2765 ×3; J3490; J7030; J7050

== ENCOUNTER 2018-12-16 18:31 | Emergency (ER) | payer SELFPAY ==
--- NOTE | 2018-12-16 18:31 | NUR ---
Upon bringing pt to triage, states she had an episode of coffee ground emesis in [facility] bathroom before being called to triage. Noted to have small amount of brown emesis in toilet. While attempting to complete triage & take VS. 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 States she has been having "coffee ground emesis" & n/v has not resolved. Dr. Haro in triage attempting to talk with pt. Mother interjecting, about c/o "low potassium" & "cardiac issues." Informed by MD, that issues of care are to be discussed with the pt. Mother returned to [facility]. Pt remains in triage, again attempting to obtain VS. Pt inquiring what will be done for care, stating "Why am I here then?" Declines to have VS taken & proceeds to leave.
--- OUTSIDE RECORDS SUMMARY | 2018-12-16 18:35 | XMS REPORT | Clinical Summary ---
Author Author MATHEW [facility] Address Unknown Phone Unavailable Care Team Providers Care Industrial Fabric Cutter Name Role Phone PCP Unavailable Allergies Comments [...] Medication Active vitamin Take 1 tablet 0 w/cvctvvp-hmzc-vbsavs by mouth ( PLUS) 27 mg daily. [...] Not on file Results Not on fileafter 12/15/2017 Insurance Payer Benefit Subscriber ID Type Phone Address Plan / Group BLUE CROSS/BLUE SHIELD BCBS ADV xxxxxxxxxxxx [phone] [address] [place] [address] EXCHANGE
--- OUTSIDE RECORDS SUMMARY | 2018-12-16 18:36 | XMS REPORT | Clinical Summary ---
Author Author MATHEW [facility] Address Unknown Phone Unavailable Care Team Providers Care House Visitor Name Role Phone PCP Unavailable Allergies Comments [...] Medication Active vitamin Take 1 tablet 0 w/rqxqhnq-tabo-fnzxvs by mouth ( PLUS) 27 mg daily. [...] Group BLUE CROSS/BLUE SHIELD BCBS ADV xxxxxxxxxxxx [phone] [address] [place] [address] EXCHANGE
== END 2018-12-16 18:50 | disposition short-term general hospital (02) ==
LOC: ER 18:33
DX: R11.10 Vomiting, unspecified (principal)

== ENCOUNTER 2020-02-26 09:56 | Emergency (ER) | payer OTHER ==
[~2020-02-26] VITALS: Ht 165.1 cm; Wt 82.1 kg
[2020-02-26 10:28] VITALS: BP 137/91
== END 2020-02-26 10:39 | disposition home or self-care (01) ==
LOC: ER 09:56
DX: R50.9 Fever, unspecified (principal); R05 Cough; B34.9 Viral infection, unspecified
CPT/HCPCS: 99282

== ENCOUNTER 2020-05-17 09:15 | Emergency (ER) | payer OTHER ==
[~2020-05-17] VITALS: Ht 165.1 cm; Wt 82.1 kg
[2020-05-17] MEDS ORDERED: MEDROL4 MG PO (09:29)
[2020-05-17] MEDS ORDERED: NAPROSYN500 MG PO (09:29)
[2020-05-17] MEDS ORDERED: CYCLOBENZAPRINE5 MG PO (09:29)
--- NOTE | 2020-05-17 09:35 | Emergency Department Note ---
History of Present Illnes History of Present Illness Chief Complaint: Back Pain History of Present Illness This is a 39 year old female . 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 Onset (how long ago): week(s) (3 weeks no weakness, numbness, fever, urinary or bowel incontinence has hx of disc problems) Severity: moderate Onset quality: gradual Timing of current episode: constant Progression: unchanged Chronicity: new Context: Denies recent illness, Denies recent surgery, Denies recent i mmobilization, Denies recent travel, Denies trauma/injury, Denies new medications, Denies hx of DVT/PE, Denies non-compliance w/ medications, Denies other Relieving factors: none Exacerbating factors: movement Associated symptoms: Denies denies other symptoms, Denies confusion, Denies chest pain, Denies cough, Denies diaphoresis, Denies fever/chills, Denies headaches, Denies loss of appetite, Denies malaise, Denies nausea/vomiting, Denies rash, Denies seizure, Denies shortness of breath, Denies syncope, Denies weakness, Denies other Treatments prior to arrival: NSAID Past Medical/Family History Physician Review I have reviewed the patient's past medical and family history. Any updates have been documented here. Past Medical History Recent Fever: No Clinical Suspicion of Infectio: No New/Unexplained Change in Ment: No Past Medical History: Anxiety, Depression, GERD Other Medical History: IBS, gastroparesis, small bowel obstruction Past Surgical History: Cholecysctectomy Other Surgery: Gallbladder removed and tonsillectomy. D&C Colonoscopy with some polyps removed Social History Smoking Cessation: Never Smoker Counseling Performed: No Alcohol Use: None Any Illegal Drug Use: Yes ( [facility]) TB Exposure/Symptoms: No Physically hurt or threatened: No Other Last Tetanus: UTD Any Pre-Existing Lines (PICC,: No Is patient up to date on immun: Yes Last Flu: no Last Pneumovax: no Review of Systems Review of Systems Constitutional: Reports as per HPI; Denies fever Musculoskeletal: Reports back pain Neurological: Denies numbness, Denies paresthesia, Denies weakness Review of other systems: All other systems negative Physical Exam Related Data Allergies: Coded Allergies: morphine (Verified Allergy, Intermediate, RASH, ITCH, 12/06/18) paroxetine (Verified Adverse Reaction, Intermediate, MIGRAINE, N/V, 12/14/18) Uncoded Allergies: ENVIRONMENTAL ALLERGIES (Allergy, Unknown, 03/11/17) Vital signs reviewed: Yes Physical Exam CONSTITUTIONAL Constitutional: Present well-developed, Present obese; Absent distressed, Absent ill appearing HENT HENT: Present normocephalic EYES Eyes: Reports conjunctivae normal NECK Neck: Present supple PULMONARY Pulmonary: Present breath sounds normal, Present respiratory distress CARDIOVASCULAR Cardiovascular: Present regular rhythm GASTROINTESTINAL Abdominal: Present soft GENITOURINARY SKIN Skin: Present warm MUSCULOSKELETAL Musculoskeletal: Present ROM normal (ambulates without any issues) NEUROLOGICAL Neurological: Present alert, Present oriented x 3, Present no gross motor or sensory deficits PSYCHOLOGICAL Psychological: Present mood/affect normal Assessment & Plan Medical Decision Making MDM radiculopathy, abscess, fx, spondylolisthesis, lysis, mets Assessment & Plan Final Impression: (1) Radiculopathy due to lumbar intervertebral disc disorder (2) Back ache Depart Disposition: HOME, SELF-[facility] Meds Active Scripts Methylprednisolone (MEDROL) 4 Mg Tablet, 4 MG PO ACB for medrol dose pack for 5 Days, #21 TAB Prov:AGGIE RAINEY MD 05/17/20 Cyclobenzaprine Hcl (FLEXERIL) 5 Mg Tablet, 10 MG PO TID PRN for pain for 5 Days, #15 Prov:AGGIE RAINEY MD 05/17/20 Naproxen (NAPROSYN) 500 Mg Tablet, 500 MG PO BID for 7 Days, #15 TAB Prov:AGGIE RAINEY MD 05/17/20 Pantoprazole Sodium* (PROTONIX) 40 Mg Tablet.dr, 40 MG PO BID for 30 Days, TAB Prov:[employer] MANAGER 06/22/18 Reported Medications Colestipol Hcl,Micronized (COLESTIPOL HCL) 1 Gm Tablet, 1 GM PO DAILY, #30 TAB 12/12/18 Buspirone Hcl (BUSPIRONE HCL) 5 Mg Tablet, 2.5 MG PO BID 12/10/18 Citalopram Hydrobromide (CITALOPRAM HBR) 20 Mg Tablet, 40 MG PO DAILY, TAB 06/22/18 Diazepam (DIAZEPAM) 5 Mg Tablet, 5 MG PO BID PRN for ANXIETY, #30 TAB 06/21/18 Quetiapine Fumarate (SEROQUEL) 25 Mg Tablet, 600 MG PO HS, #60 TAB 06/14/18 Ondansetron (ZOFRAN ODT) 4 Mg Tab.rapdis, 4 MG PO Q4HR PRN for NAUSEA AND VOMITING, TAB 03/11/17 Promethazine Hcl (PROMETHAZINE HCL) 25 Mg Tablet, 25 MG PO Q6H PRN for NAUSEA AND VOMITING, TAB 08/21/15 AGGIE RAINEY MD May 17, 2020 09:35
== END 2020-05-17 09:46 | disposition home or self-care (01) ==
LOC: FSED 09:15
DX: M51.16 Intervertebral disc disorders with radiculopathy, lumbar region (principal); F41.9 Anxiety disorder, unspecified; F32.9 Major depressive disorder, single episode, unspecified; K21.9 Gastro-esophageal reflux disease without esophagitis
CPT/HCPCS: 99282

== ENCOUNTER 2021-04-18 09:47 | Emergency (ER) | payer MEDICARE, OTHER ==
[~2021-04-18] VITALS: Ht 165.1 cm; Wt 95.3 kg
[~2021-04-18 09:47] MED LIST changes: +CYCLOBENZAPRINE5 MG PO; +MEDROL4 MG PO; +NAPROSYN500 MG PO
[2021-04-18] MEDS ORDERED: CEFTRIAXONE SOD 1 GM VIAL IM ONE (10:15)
[2021-04-18] MEDS ORDERED: DEXAMETHASONE SOD PHOS 10 MG/1 ML VIAL IM ONE (10:15)
[2021-04-18] MEDS ORDERED: THERAFLU NIGHT1 EAC5 PO (10:29)
[2021-04-18] MEDS ORDERED: CEFDINIR300 MG PO (10:29)
[2021-04-18] MEDS ORDERED: ULTRAM 50MG50 MG PO (10:29)
[2021-04-18] MEDS ORDERED: IBUPROFEN IB200 MG PO (10:29)
[2021-04-18] MEDS ORDERED: CEFTRIAXONE SOD 1 GM VIAL ONE (10:38)
[2021-04-18] MEDS ORDERED: PREDNISONE 20 MG TAB ONE (10:38)
[2021-04-18] MEDS ORDERED: PREDNISONE 20 MG TAB PO ONE (10:45)
== END 2021-04-18 10:43 | disposition home or self-care (01) ==
LOC: FSED 09:49
DX: H66.92 Otitis media, unspecified, left ear (principal); J30.9 Allergic rhinitis, unspecified; K21.9 Gastro-esophageal reflux disease without esophagitis; F41.9 Anxiety disorder, unspecified; F32.9 Major depressive disorder, single episode, unspecified
CPT/HCPCS: 99282; J0696; J1100; J7512

== ENCOUNTER 2021-05-19 11:56 | Emergency (ER) | payer OTHER ==
[~2021-05-19] VITALS: Ht 165.1 cm; Wt 95.3 kg
[~2021-05-19 11:56] MED LIST changes: +CEFDINIR300 MG PO; +IBUPROFEN IB200 MG PO; +THERAFLU NIGHT1 EAC5 PO; +ULTRAM 50MG50 MG PO
[2021-05-19] MEDS ORDERED: DIAZEPAM INJ 5 MG/ML 2 ML IM STA (12:18)
[2021-05-19] MEDS ORDERED: KETOROLAC TROMETHAMINE 60 MG/2 ML VIAL IM ONE (12:30)
[2021-05-19] MEDS ORDERED: KETOROLAC TROMETHAMINE 60 MG/2 ML VIAL ONE (12:56)
[2021-05-19] MEDS ORDERED: DIAZEPAM INJ 5 MG/ML 2 ML ONE (12:56)
== END 2021-05-19 13:35 | disposition home or self-care (01) ==
LOC: FSED 12:20
DX: S13.4XXA Sprain of ligaments of cervical spine, initial encounter (principal); R05 Cough; J06.9 Acute upper respiratory infection, unspecified; F41.9 Anxiety disorder, unspecified; K21.9 Gastro-esophageal reflux disease without esophagitis
CPT/HCPCS: 71046; 99283; J1885; J3360

== ENCOUNTER 2023-01-22 08:33 | Emergency (ER) | payer BC, OTHER ==
[~2023-01-22] VITALS: Ht 165.1 cm; Wt 83.9 kg
[2023-01-22] MEDS ORDERED: ONDANSETRON ODT4 MG PO (09:17)
[2023-01-22] MEDS ORDERED: FIORICET 50-301 EACH PO (09:17)
[2023-01-22] MEDS ORDERED: CLARITIN-D 241 EACH PO (09:17)
[2023-01-22] MEDS ORDERED: FLONASE ALLERG9.9 ML INH (09:17)
[2023-01-22] MEDS ORDERED: MUCINEX DM ER1 EACH PO (09:17)
== END 2023-01-22 09:40 | disposition home or self-care (01) ==
LOC: FSED 08:41
DX: R05.9 Cough, unspecified (principal); J01.90 Acute sinusitis, unspecified; J06.9 Acute upper respiratory infection, unspecified; R51.9 Headache, unspecified; K21.9 Gastro-esophageal reflux disease without esophagitis; F41.9 Anxiety disorder, unspecified; R11.0 Nausea
CPT/HCPCS: 83518; 87400; 99282

== ENCOUNTER 2023-08-29 08:43 | Outpatient (RCR) | payer BC ==
[~2023-08-29 08:43] MED LIST changes: +BENICAR20 MG PO; +CELEXA20 MG PO; +CLARITIN-D 241 EACH PO; +FIORICET 50-301 EACH PO; +FLONASE ALLERG9.9 ML INH; +IMITREX50 MG PO; +IRON PO; +KLONOPIN0.5 MG PO; +LAMICTAL100 MG PO; +LYRICA75 MG PO; +MUCINEX DM ER1 EACH PO; +MULTI-VITAMIN1 EACH PO; +OMEPRAZOLE40 MG PO; +ONDANSETRON ODT4 MG PO; +TRAZODONE HCL100 MG PO; +UBRELVY100 MG PO; +ZANAFLEX4 MG PO
[2023-09-07] MEDS ORDERED: HYDROCODON-ACE1 EA12 PO (09:49)
== END 2023-09-26 ==
LOC: PT 08:43
PROVIDERS: ATTEND Neurological Surgery
DX: M50.10 Cervical disc disorder with radiculopathy, unspecified cervical region (principal)

== ENCOUNTER 2023-09-07 05:20 | Observation (INO) | payer BC ==
[2023-09-05 16:28] LABS: BASOPHILS % 0.5 % (0.0-1.0); EOSINOPHILS # (AUTO) 0.1 (0.0-0.4); EOSINOPHILS % 2.2 % (0.0-6.0); HEMATOCRIT 36.3 % (34.2-44.1); HEMOGLOBIN 12.4 g/dL (12.0-16.0); LYMPHOCYTES # (AUTO) 2.8 (1.0-3.2); LYMPHOCYTES % 43.9 % (18.0-39.1); MEAN CORPUSCULAR HEMOGLOBIN 31.2 pg (28-32); MEAN CORPUSCULAR HGB CONC 34.2 g/dL (31-35); MEAN CORPUSCULAR VOLUME 91.2 fL (81-99); MONOCYTES # (AUTO) 0.7 (0.2-0.8); MONOCYTES % 10.7 % (4.4-11.3); NEUTROPHILS # (AUTO) 2.8 (2.1-6.9); NEUTROPHILS % 42.5 % (38.7-80.0); PLATELET COUNT 375 x10e3/uL (140-360); RED BLOOD COUNT 3.98 x10e6/uL (3.6-5.1); RED CELL DISTRIBUTION WIDTH 13.1 % (11.7-14.4); WHITE BLOOD COUNT 6.47 x10e3/uL (4.8-10.8)
[2023-09-05 16:34] LABS: INR 0.97; PROTHROMBIN TIME 13.5 seconds (11.9-14.5)
[2023-09-05 16:38] LABS: ANION GAP 15.1 mmol/L (8-16); CALCIUM 9.7 mg/dL (8.4-10.2); CREATININE, SERUM 0.88 mg/dL (0.57-1.11); POTASSIUM 4.1 mmol/L (3.5-5.1)
[~2023-09-07] VITALS: Ht 165.1 cm; Wt 83.9 kg
[2023-09-07] MEDS ORDERED: LACTATED RINGER'S 1,000 ML ONE (05:48)
[2023-09-07] MEDS ORDERED: CEFAZOLIN SODIUM 2 GM ONE (05:48)
[2023-09-07] MEDS ORDERED: THROMBIN FOR SOLN 5,000 UNIT VIAL ONE (06:59)
[2023-09-07] MEDS ORDERED: Vancomycin IV 1 GM VIAL ONE (07:00)
[2023-09-07] MEDS ORDERED: LIDOCAINE 2%/ EPINEPHRINE 20ML MDV ONE (07:00)
[2023-09-07] MEDS ORDERED: HYDROMORPHONE 2MG/ML 2 MG/ML ML ONE (07:34)
[2023-09-07] MEDS ORDERED: ZOLPIDEM TARTRATE 5 MG TAB PO PRN (09:45)
[2023-09-07] MEDS ORDERED: SUMATRIPTAN SUCCINATE 50 MG PO SCH (09:45)
[2023-09-07] MEDS ORDERED: PROMETHAZINE HCL (IM) 25 MG/ML VIAL IM PRN (09:45)
[2023-09-07] MEDS ORDERED: ONDANSETRON HCL INJ 2MG/ML 2ML 2 MG/ML VIAL IV PRN (09:45)
[2023-09-07] MEDS ORDERED: MAGNESIUM/ALUMINUM/SIMETHICONE 30 ML UDC PO PRN (09:45)
[2023-09-07] MEDS ORDERED: ACETAMINOPHEN 325 MG TAB PO PRN (09:45)
[2023-09-07] MEDS ORDERED: HYDROCODON-ACE1 EA12 PO (09:49)
[2023-09-07] MEDS: HYDROMORPHONE 1MG/1ML INJ ONE ×5 (09:50→10:35)
[2023-09-07 11:11] VITALS: BP 118/76; PULSE 73; RESP 16; TEMP 97.1; O2SAT 95
[2023-09-07 11:25] VITALS: BP 118/76; PULSE 73; RESP 18; TEMP 97.1; O2SAT 95
[2023-09-07] MEDS ORDERED: SUMATRIPTAN SUCCINATE 25 MG TAB PO PRN (12:00)
[2023-09-07] MEDS: LACTATED RINGER'S 1,000 ML IV SCH ×2 (12:37→18:05)
[2023-09-07] MEDS: CARISOPRODOL 350 MG TAB PO PRN ×2 (12:43→17:40)
[2023-09-07] MEDS: OXYCODONE/ACETAMINOPHEN 5-325 1 EACH TABLET PO PRN ×3 (12:44→21:43)
[2023-09-07] MEDS ORDERED: MIDAZOLAM HCL 2 MG/2 ML VIAL ONE (13:40)
[2023-09-07] MEDS: HYDROMORPHONE 1MG/1ML INJ IV PRN ×2 (15:13→19:31)
[2023-09-07 15:41] VITALS: BP 135/79; PULSE 88; RESP 17; TEMP 97.4; O2SAT 96
[2023-09-07] MEDS ORDERED: PREGABALIN 50 MG CAP PO SCH ×2 (17:00→21:00)
[2023-09-07] MEDS ORDERED: NAPROXEN 250 MG TAB PO SCH ×2 (17:00→21:00)
[2023-09-07 20:00] VITALS: BP 135/79; PULSE 88; RESP 17; TEMP 97.4; O2SAT 96
[2023-09-07 20:27] VITALS: BP 132/78; PULSE 85; RESP 18; TEMP 97.6; O2SAT 98
[2023-09-07] MEDS ORDERED: QUETIAPINE FUMARATE 100 MG TAB PO SCH (21:00)
[2023-09-07] MEDS ORDERED: TRAZODONE HCL 50 MG TAB PO SCH (21:00)
[2023-09-07] MEDS ORDERED: OLMESARTAN 20 MG TAB PO SCH (21:00)
[2023-09-08 00:28] VITALS: BP 121/81; PULSE 73; RESP 18; TEMP 98; O2SAT 98
[2023-09-08] MEDS: HYDROMORPHONE 1MG/1ML INJ IV PRN (01:51)
[2023-09-08] MEDS: LACTATED RINGER'S 1,000 ML IV SCH (03:41)
[2023-09-08] MEDS: OXYCODONE/ACETAMINOPHEN 5-325 1 EACH TABLET PO PRN ×2 (04:10→08:11)
[2023-09-08] MEDS: CARISOPRODOL 350 MG TAB PO PRN ×2 (04:10→08:11)
[2023-09-08 04:47] VITALS: BP 111/72; PULSE 84; RESP 16; TEMP 98; O2SAT 98
[2023-09-08] MEDS ORDERED: PANTOPRAZOLE SOD 40 MG TABEC PO SCH (07:30)
[2023-09-08] MEDS ORDERED: MONTELUKAST SODIUM 10 MG TAB PO SCH (09:00)
[2023-09-08] MEDS ORDERED: TIZANIDINE HCL 4 MG TAB PO PRN (09:00)
[2023-09-08] MEDS ORDERED: MULTIVITAMINS/MINERALS TAB PO SCH (09:00)
[2023-09-08] MEDS ORDERED: CITALOPRAM HYDROBROMIDE 20 MG TAB PO SCH (09:00)
[2023-09-08] MEDS ORDERED: FLUTICASONE PROPIONATE NASAL SPRAY NS SCH (09:00)
[2023-09-08] MEDS ORDERED: LAMOTRIGINE 100 MG TAB PO SCH (09:00)
[2023-09-08] MEDS ORDERED: TIZANIDINE HCL 4 MG TAB PO SCH (09:00)
[2023-09-08] MEDS ORDERED: NON-FORMULARY MEDICATION (Fluticasone Propionate* (Flonase Allergy Relief*) 2 EACH) INH SCH (09:00)
== END 2023-09-08 08:26 | disposition home or self-care (01) ==
LOC: OR 05:20 → PACU V 09:42 → MED/SURG 11:00
PROVIDERS: ADMIT Neurological Surgery; ATTEND Neurological Surgery
DX: M47.22 Other spondylosis with radiculopathy, cervical region (principal); M50.122 Cervical disc disorder at C5-C6 level with radiculopathy; M48.02 Spinal stenosis, cervical region; G89.29 Other chronic pain; I10 Essential (primary) hypertension; E78.5 Hyperlipidemia, unspecified; G43.909 Migraine, unspecified, not intractable, without status migrainosus; K21.9 Gastro-esophageal reflux disease without esophagitis; F41.8 Other specified anxiety disorders; Z01.810 Encounter for preprocedural cardiovascular examination; Z01.812 Encounter for preprocedural laboratory examination; Z01.818 Encounter for other preprocedural examination; Z79.899 Other long term (current) drug therapy
CPT/HCPCS: 20931; 22551; 22552; 22845; 36415; 71046; 80048; 81025; 85025; 85610; 85730; 86850; 86900; 88304; 93005; C1713 ×4; C1768; G0378 ×2; J0690 ×2; J1170 ×3; J2001; J2250; J2405; J3370; J7121 ×2; 76000

== ENCOUNTER 2025-03-26 13:23 | Emergency (ER) | payer BC ==
[~2025-03-26] VITALS: Ht 165.1 cm; Wt 83.9 kg
[~2025-03-26 13:23] MED LIST changes: +HYDROCODON-ACE1 EA12 PO
[2025-03-26] MEDS: PREDNISONE 20 MG TAB PO ONE (14:20)
[2025-03-26] MEDS: KETOROLAC TROMETHAMINE 30 MG/ML VIAL IM STA (14:21)
[2025-03-26] MEDS ORDERED: KETOROLAC TROME10 MG PO (14:38)
[2025-03-26] MEDS ORDERED: HYDROCODON-ACE1 EA11 PO ×2 (14:39→14:52)
[2025-03-26 15:08] VITALS: PULSE 70; RESP 18; TEMP 97.3; O2SAT 99
== END 2025-03-26 15:15 | disposition home or self-care (01) ==
LOC: FSED 13:44
DX: M54.2 Cervicalgia (principal); I10 Essential (primary) hypertension; K21.9 Gastro-esophageal reflux disease without esophagitis; F41.9 Anxiety disorder, unspecified; F32.A Depression, unspecified; Z87.19 Personal history of other diseases of the digestive system
CPT/HCPCS: 99283; J1885; J7512